=== PATIENT | female | born 1970 | race Caucasian/White ===

== ENCOUNTER 2016-04-08 21:45 | Inpatient (IN) | payer MEDICARE, MEDICAID ==
[~2016-04-08] VITALS: Ht 180.3 cm; Wt 179.6 kg
[~2016-04-08 21:45] MED LIST: ACID1TAB4 PO; ALPH300T PO; ALPR-557 PO; ASCO500T20 PO; ASPI-241 PO; BORAGE OIL PO; BUTA-234 PO; CALC-6 PO; CALC-787 PO; CALC750C PO; CEFD300C PO; CLON0.1T14 PO; CLOP75TA28 PO; CYAN50003 PO; CYCL10TA45 PO; DIPH1TAB25 PO; DIPH25TA82 PO; DOXY100C42 PO; DULO30CA PO; ENXP40I.4 SC; FEXO180T84 PO; FLONASE; FRS325T PO; FURO40TA PO; FURO40TA4 PO; GBPN300C PO; GLUC1VIA IM; GLYB2.5T4 PO; HYDR-2889 PO; HYDR50CA PO; INSASP10V SC; INSU100V5 SQ; INSU100V6 SQ; LEVO175T3 PO; LISI10TA PO; METR500T PO; MMT17NA NS; MONT10TA24 PO; MTF500T PO; NAPR-243 PO; NST15PW TOP; Nystatin TP; OMG1KC PO; OXYC-197 PO; OXYC1TAB12 PO; PERM60CR17 TP; PIOG45TA PO; PROP15DR OU; Polyethylene Glycol PO; ROCEPHIN IV; SIMV40TA4 PO; TRAM-21 PO; TRZ50T PO; ZINC50TA49 PO; [UNRECOGNIZED DRUG - OTHER]; [UNRECOGNIZED DRUG - OTHER] PO; [UNRECOGNIZED DRUG - OTHER] PO; [UNRECOGNIZED DRUG - OTHER] PO
[2016-04-08] MEDS ORDERED: ACETAMINOPHEN 500 MG TAB (TYLENOL) PO PRN (22:15)
[2016-04-08] MEDS ORDERED: ONDANSETRON 4 MG/2 ML (SDV) Z0FRAN IVP PRN (22:15)
[2016-04-08] MEDS ORDERED: VANCOMYCIN IV ADD-VANTAGE 1,000 MG in SODIUM CHLORIDE (ADD-VANTAGE) 250 ML IV ONE (22:15)
--- NOTE | 2016-04-08 22:17 | ED General ---
General Chief Complaint: Fever-Adult/Adol Stated Complaint: CELLULITIS Nursing Triage Note: Per EMS, patient transport with Fire assist, 6 man lift to cart. Pt has cellulitis in right leg up to hip and groin; temps up to 103.5. Nursing Sepsis Screen: Possible Severe Sepsis Risk Source of Information: Patient, Family, Fpc Records Exam Limitations: No Limitations History of Present Illness Time Seen by Provider: 22:06 Initial Comments 45-year-old female patient presents to the emergency department with complaints of possible sepsis. Patient is tenderness this examiner from residential rounds as an outpatient. Patient has been treated as an outpatient by Uriah Jacob APRN with doxycycline and Bactrim. Patient has had worsening symptoms of the right lower extremity today. Right lower extremity cellulitis now with erythema up to the level of the right hip and a fever of 103.5 degrees F. Patient was noted by nursing staff to have an oxygen of 68 percent on room air. Patient does not wear oxygen at home, but does use a BiPap at nighttime. Sister reports patient has had increased muscle spasms while sleeping. Labs obtained as an outpatient showed a Na+ 125, Creat 2.4, WBC 14. Timing/Duration: 1 Week, Getting Worse Modifying Factors: worse with Medication (no improvement with Bactrim or doxy.) Allergies and Home Medications Allergies Coded Allergies: meperidine HCl (Verified Allergy, Severe, seizure, 02/14/16) fluticasone propionate (Verified Allergy, Intermediate, HIVES, 02/14/16) salmeterol xinafoate (Verified Allergy, Intermediate, HIVES, 02/14/16) ibuprofen (Unverified Allergy, Unknown, 02/14/16) levofloxacin (Verified Adverse Reaction, Unknown, 02/14/16) Home Medications 180 MG PO Q12H PRN PRN CONGESTION (Reported) ACTIVE INGREDIENT FEXOFENADINE 180MG Albuterol Sulfate 2.5 Mg/3 Ml Vial.neb 2.5 MG NEB Q2H PRN PRN SHORTNESS OF BREATH (Reported) Alprazolam 0.25 Mg Tablet 0.25 MG PO Q6H PRN PRN ANXIETY (Reported) Amlodipine Besylate 5 Mg Tablet 5 MG PO DAILY (Reported) Ascorbic Acid 500 Mg Tablet 500 MG PO DAILY (Reported) Aspirin 325 Mg Tablet.dr 325 MG PO DAILY (Reported) Atorvastatin Calcium 20 Mg Tablet 20 MG PO DAILY (Reported) Bupropion HCl 150 Mg Tab.er.24h 300 MG PO DAILY (Reported) TAKES 2 (150MG) TABLETS Calcium Carbonate/Vitamin D3 1 Each Tablet 1 TAB PO BID (Reported) Clopidogrel Bisulfate 75 Mg Tablet 75 MG PO DAILY (Reported) Cranberry Conc/C/Bacill Coag 1 Each Tablet 1 TAB PO TID (Reported) Cyclobenzaprine Hcl 10 Mg Tablet 10 MG PO TID (Reported) Dextrose 37.5 Gm Gel..gram. 15 GM PO UD PRN PRN HYPOGLYCEMIA (Reported) GIVE ONE PACKET FOR HYPOGLYCEMIA AND TAKE BS IN 15 MIN, IF NOT RISING GIVE ANOTHER PACKET AND RE-TAKE BS IN 15 MIN, IF NO CHANGE IN BS OR LOC GIVE IM GLUCAGON AND NOTIFY MD Docusate Sodium 100 Mg Capsule 100 MG PO Q12H PRN PRN CONSTIPATION (Reported) Doxycycline Hyclate 100 Mg Capsule 10Days 100 MG PO BID (Reported) 10 DAY THERAPY START DATE 04-08-16 Fexofenadine Hcl 180 Mg Tablet 180 MG PO DAILY (Reported) Fluticasone Propionate 16 Gm Allgood.susp 1 SPRAY NS DAILY (Reported) Furosemide 80 Mg Tablet 80 MG PO DAILY PRN PRN EDEMA (Reported) MAY GIVE PRN DAILY IN ADDITION TO SCHEDULED DOSE Furosemide 80 Mg Tablet 80 MG PO DAILY (Reported) Gabapentin 600 Mg Tablet 600 MG PO TID (Reported) Glucagon,Human Recombinant 1 Mg/1 Ml Vial 1 MG IM UD PRN PRN HYPOGLYCEMIA ( Reported) Guaifenesin/Dextromethorphan 5 Ml Syrup 10 ML PO Q4H PRN PRN COUGH (Reported) Insulin Aspart 300 Units/3 Ml Solution SC AC (Reported) 151-200 = 6 UNITS 201-250 = 8 UNITS 251-300 = 10 UNITS 301-350 = 12 UNITS 351 -400 = 14 UNITS CALL MD FOR SUGAR UNDER 60 AND OVER 400 Insulin Detemir 100 Unit/1 Ml Insuln.pen 19 UNITS SC HS (Reported) Lactobacillus Acidophilus 1 Each Tablet 2 TAB PO QID (Reported) Levalbuterol Tartrate 15 Gm Hfa.aer.ad 2 PUFF IH BID (Reported) Levothyroxine Sodium 125 Mcg Tablet 250 MCG PO DAILY (Reported) TAKES 2 (125MCG) TABLETS Linagliptin 5 Mg Tablet 5 MG PO DAILY (Reported) Metformin HCl 1,000 Mg Tablet 1,000 MG PO BID (Reported) Montelukast Sodium 10 Mg Tablet 10 MG PO HS (Reported) Multivitamin with Minerals 1 Each Tablet 1 TAB PO DAILY (Reported) Nystatin 15 Gm Cream..g. TP PRN PRN PRN GAULDING (Reported) APPLY TO SKIN FOLDS [place] 3 Polyunsat Fatty Acids 1,000 Mg Cap 1,000 MG PO TID (Reported) Oxycodone HCl 30 Mg Tab.er.12h 30 MG PO BID (Reported) Oxycodone HCl/Acetaminophen 1 Each Tablet 1-2 TAB PO EVERY 4-6 HOURS (Reported ) Zinc Oxide 113 Gm Cream..g. TP BID (Reported) APPLY TO LEFT BUTTOCK, LEFT AND RIGHT THIGHS WHERE OPEN AREAS ARE LOCATED Constitutional: see HPI chills fever malaise EENTM: no symptoms reported Respiratory: coughNo phlegm, short of breath wheezing Cardiovascular: no symptoms reported Gastrointestinal: No abdominal pain, No constipation, No diarrhea, heartburn loss of appetite nausea (with antibiotics)No vomiting Genitourinary: no symptoms reported Musculoskeletal: see HPI joint pain (RLE) joint swelling (RLE) other (muscle spasms while sleeping.) Skin: see HPI change in color (erythema RLE) other (ecchymosis left 2nd finger.) Psychiatric/Neurological: See HPI Headache Pre-Existing Deficit (paralysis of the RU and RLE from previous CVA.)Denies Seizure All Other Systems Reviewed Negative Unless Noted: Yes (Negative excepted noted.) Past Lwgcdai-Rrxtzh-Qtufio Hx Patient Social History Recent Foreign Travel: No Contact w/Someone Who Travel: No Recent Infectious Disease Expo: No Recent Hopitalizations: Yes Immunizations Up To Date Date of Pneumonia Vaccine: Nov 15, 2009 Date of Influenza Vaccine: Oct 17, 2015 Surgeries HX Surgeries: Yes (fractured ankle 09/18/13) Surgeries: Orthopedic Respiratory Hx Respiratory Disorders: Yes Respiratory Disorders: Sleep Apnea, COPD Cardiovascular Hx Cardiac Disorders: Yes Cardiac Disorders: Hypertension Neurological Hx Neurological Disorders: Yes (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 ) Endocrine Disorders: Diabetes, Insulin dep Cancer Hx Cancer: No Psychosocial Hx Psychiatric Problems: Yes Behavioral Health Disorders: Depression Integumentary HX Skin/Integumentary Disorder: Yes (MULTIPLE AREAS OF SKIN BREAKDOWN) Reviewed Nursing Assessment Reviewed/Agree w Nursing PMH: Yes Family Medical History Significant Family History: No Pertinent Family Hx Family Medial History: Patient reports no known family medical history. Physical Exam-Suspected Sepsis Physical Exam Vital Signs Vital Sign - Last 12Hours 04/08/16 04/08/16 21:45 22:37 Temp 100.4 Pulse 100 Resp 18 B/P 127/63 Pulse Ox 100 O2 Delivery Nasal Cannula O2 Flow Rate 4 Capillary Refill : Less Than 3 Seconds Blood Pressure Mean: 84 General Appearance: WD/WN Chronically ill Moderate Distress Obese HEENT: PERRL/EOMI TMs Normal Normal ENT Inspection Pharynx Normal Neck: Normal Inspection Supple Respiratory: Decreased Breath Sounds Expiration Respiratory Distress Rhonci Cardiovascular: No Murmur Tachycardia Gastrointestinal: Normal Bowel Sounds Non Tender SoftNo Distended Extremity: Inflammation Pedal Edema Swelling Other (erythema, warmth, swelling , and tenderness of the RLE extending from the base of the toes to the Rt hip. erythema of the left ankle/distal lower leg. ecchymosis left 2nd finger.) Neurologic/Psychiatric: Alert Oriented x3 Depressed Affect Skin: warm/dry other (erythema, warmth, swelling, and tenderness of the RLE extending from the base of the toes to the Rt hip. erythema of the left ankle/ distal lower leg. ecchymosis left 2nd finger.) Progress/Results/Core Measures Suspected Sepsis Recent Fever Within 48 Hours: Yes Infection Criteria Present: Suspected New Infection New/Unexplained Altered Menta: Yes Sepsis Screen: Possible Severe Sepsis Risk Sepsis Diagnosis: SIRS Temperature:100.4 Pulse: 100 Respiratory Rate: 18 Laboratory Tests 04/08/16 21:58: White Blood Count 17.7H 04/09/16 04:20: White Blood Count 14.3H 04/10/16 05:50: White Blood Count 10.5 Blood Pressure 127 /63 Mean: 84 Laboratory Tests 04/08/16 21:58: Creatinine 2.18H, INR Comment 1.1, Platelet Count 195, Total Bilirubin 0.3 04/09/16 04:20: Creatinine 2.06H, Platelet Count 167, Total Bilirubin 0.3 04/10/16 05:50: Creatinine 1.51H, Platelet Count 164, Total Bilirubin 0.3 Results/Orders Lab Results Laboratory Tests Test 04/08/16 21:45 04/08/16 21:58 04/08/16 23:45 04/09/16 04:20 Range/Units B-Type Natriuretic Peptide 144.0 H <100.0 PG/ML Activated Partial Thromboplast Time 83 H 24-35 SEC Alanine Aminotransferase (ALT/SGPT) 23 21 0-55 U/L Albumin 2.9 L 2.6 L 3.2-4.5 G/DL Alkaline Phosphatase 81 74 40-136 U/L Anion Gap 14 11 5-14 MMOL/L Aspartate Amino Transf (AST/SGOT) 29 26 5-34 U/L BUN/Creatinine Ratio 37 39 Band Neutrophils 2 % Basophils # (Auto) 0.0 0.0 0.0-0.1 10^3/uL Basophils % (Manual) 0 % Basophils (%) (Auto) 0 0 0-10 % Blood Urea Nitrogen 81 H 80 H 7-18 MG/DL Calcium Level 8.6 8.0 L 8.5-10.1 MG/DL Carbon Dioxide Level 23 25 21-32 MMOL/L Chloride Level 92 L 96 L 98-107 MMOL/L Creatinine 2.18 H 2.06 H 0.60-1.30 MG/DL Eosinophils # (Auto) 0.0 0.0 0.0-0.3 10^3/uL Eosinophils % (Manual) 1 % Eosinophils (%) (Auto) 0 0 0-10 % Estimat Glomerular Filtration Rate 25 26 Glucose Level 195 H 155 H 70-105 MG/DL Hematocrit 32 L 29 L 35-52 % Hemoglobin 10.7 L 9.7 L 11.5-16.0 G/DL Hypochromasia SLIGHT INR Comment 1.1 0.8-1.4 Lactic Acid Level 1.1 0.7 0.5-2.0 MMOL/L Lymphocytes # (Auto) 0.6 L 0.8 L 1.0-4.0 X 10^3 Lymphocytes % (Manual) 8 % Lymphocytes (%) (Auto) 4 L 5 L 12-44 % Mean Corpuscular Hemoglobin 28 28 25-34 PG Mean Corpuscular Hemoglobin Concent 34 33 32-36 G/DL Mean Corpuscular Volume 84 84 80-99 FL Mean Platelet Volume 10.1 9.4 7.4-10.4 FL Monocytes # (Auto) 0.5 0.7 0.0-1.0 X 10^3 Monocytes % (Manual) 2 % Monocytes (%) (Auto) 3 5 0-12 % Neutrophils # (Auto) 16.6 H 12.9 H 1.8-7.8 X 10^3 Neutrophils % (Manual) 87 % Neutrophils (%) (Auto) 93 H 90 H 42-75 % Platelet Count 195 167 130-400 10^3/uL Potassium Level 4.0 3.8 3.6-5.0 MMOL/L Prothrombin Time 13.7 12.2-14.7 SEC Red Blood Count 3.79 L 3.45 L 4.35-5.85 10^6/uL Red Cell Distribution Width 15.9 H 15.9 H 10.0-14.5 % Sodium Level 129 L 132 L 135-145 MMOL/L Total Bilirubin 0.3 0.3 0.1-1.0 MG/DL Total Protein 6.5 5.8 L 6.4-8.2 G/DL Troponin I < 0.30 <0.30 NG/ML White Blood Count 17.7 H 14.3 H 4.3-11.0 10^3/uL Lab Scanned Report LAB Reports [id number] Magnesium Level 1.7 L 1.8-2.4 MG/DL Phosphorus Level 4.0 2.3-4.7 MG/DL Test 04/09/16 12:47 04/09/16 16:53 04/09/16 17:50 04/09/16 20:40 Range/Units Glucometer 264 H 341 H 285 H 70-110 MG/DL Urine Bacteria TRACE /HPF Urine Bilirubin NEGATIVE NEGATIVE Urine Casts PRESENT /LPF Urine Clarity CLEAR Urine Color YELLOW Urine Crystals NONE /LPF Urine Culture Indicated NO Urine Glucose (UA) NEGATIVE NEGATIVE Urine Hyaline Casts 0-2 H /LPF Urine Ketones NEGATIVE NEGATIVE Urine Leukocyte Esterase NEGATIVE NEGATIVE Urine Mucus NEGATIVE /LPF Urine Nitrite NEGATIVE NEGATIVE Urine Protein NEGATIVE NEGATIVE Urine RBC RARE /HPF Urine RBC (Auto) 4+ H NEGATIVE Urine Specific [place] 1.010 L 1.016-1.022 Urine Squamous Epithelial Cells RARE /HPF Urine Urobilinogen NORMAL NORMAL MG/DL Urine WBC 0-2 /HPF Urine pH 5 5-9 Test 04/10/16 05:45 04/10/16 05:50 04/10/16 11:19 04/10/16 16:13 Range/Units Glucometer 155 H 205 H 249 H 70-110 MG/DL Alanine Aminotransferase (ALT/SGPT) 25 0-55 U/L Albumin 2.6 L 3.2-4.5 G/DL Alkaline Phosphatase 91 40-136 U/L Anion Gap 11 5-14 MMOL/L Aspartate Amino Transf (AST/SGOT) 26 5-34 U/L BUN/Creatinine Ratio 43 Basophils # (Auto) 0.0 0.0-0.1 10^3/uL Basophils (%) (Auto) 0 0-10 % Blood Urea Nitrogen 65 H 7-18 MG/DL Calcium Level 7.6 L 8.5-10.1 MG/DL Carbon Dioxide Level 24 21-32 MMOL/L Chloride Level 98 98-107 MMOL/L Creatinine 1.51 H 0.60-1.30 MG/DL Eosinophils # (Auto) 0.1 0.0-0.3 10^3/uL Eosinophils (%) (Auto) 1 0-10 % Estimat Glomerular Filtration Rate 38 Glucose Level 148 H 70-105 MG/DL Hematocrit 29 L 35-52 % Hemoglobin 9.8 L 11.5-16.0 G/DL Lymphocytes # (Auto) 0.7 L 1.0-4.0 X 10^3 Lymphocytes (%) (Auto) 6 L 12-44 % Magnesium Level 1.7 L 1.8-2.4 MG/DL Mean Corpuscular Hemoglobin 28 25-34 PG Mean Corpuscular Hemoglobin Concent 33 32-36 G/DL Mean Corpuscular Volume 84 80-99 FL Mean Platelet Volume 9.4 7.4-10.4 FL Monocytes # (Auto) 0.9 0.0-1.0 X 10^3 Monocytes (%) (Auto) 9 0-12 % Neutrophils # (Auto) 8.8 H 1.8-7.8 X 10^3 Neutrophils (%) (Auto) 84 H 42-75 % Phosphorus Level 3.7 2.3-4.7 MG/DL Platelet Count 164 130-400 10^3/uL Potassium Level 3.6 3.6-5.0 MMOL/L Red Blood Count 3.50 L 4.35-5.85 10^6/uL Red Cell Distribution Width 16.0 H 10.0-14.5 % Sodium Level 133 L 135-145 MMOL/L Total Bilirubin 0.3 0.1-1.0 MG/DL Total Protein 6.1 L 6.4-8.2 G/DL Vancomycin Level Trough 29.0 *H 10.0-20.0 UG/ML White Blood Count 10.5 4.3-11.0 10^3/uL Test 04/10/16 17:52 04/10/16 21:07 Range/Units Vancomycin Level Trough 20.7 H 10.0-20.0 UG/ML Glucometer 280 H 70-110 MG/DL Micro Results Microbiology 04/09/16 Blood Culture - Preliminary, Resulted 04/08/16 Blood Culture - Preliminary, Resulted No growth 04/08/16 Blood Culture - Preliminary, Resulted No growth 04/09/16 MRSA Screen - Final, Complete 04/08/16 Influenza Types A,B Antigen ([facility]) - Final, Complete My Orders Orders-PRITESH CARBAJAL Cbc With Automated Diff (04/08/16 22:15) Comprehensive Metabolic Panel (04/08/16 22:15) Lactic Acid Analyzer (04/08/16 22:15) Blood Culture (04/08/16 22:15) Sputum Culture (04/08/16 22:15) Ua Culture If Indicated (04/08/16 22:15) Protime With Inr (04/08/16 22:15) Partial Thromboplastin Time (04/08/16 22:15) Chest 1 View, Ap/Pa Only (04/08/16 22:15) O2 (04/08/16 22:15) Ondansetron Injection (Zofran Injectio (04/08/16 22:15) Acetaminophen Tablet (Tylenol Tablet) (04/08/16 22:15) Saline Lock/Iv-Start (04/08/16 22:15) Saline Lock/Iv-Start (04/08/16 22:15) Ekg Tracing (04/08/16 22:15) Troponin I (04/08/16 22:15) Vital Signs Adult Sepsis Patie Q1HR (04/08/16 22:15) Vancomycin Iv Add-Disputanta (Vancomycin Iv (04/08/16 22:15) Remove Rings In Anticipation O (04/08/16 22:15) Influenza A And B Antigens (04/08/16 22:15) Manual Differential (04/08/16 21:58) BNP (04/08/16 22:26) O2 (04/08/16 22:28) Monitor-Rhythm Ecg Trace Only (04/08/16 22:28) Albuterol Pre-Mix Nebs (Rt) (Proventil P (04/08/16 22:28) Svn Sm Volume Nebulizer Rt-Rfs (04/08/16 22:28) Albuterol Pre-Mix Nebs (Rt) (Proventil P (04/08/16 22:32) Albuterol Pre-Mix Nebs (Rt) (Proventil P (04/08/16 22:42) Ns Iv 1000 Ml (Sodium Chloride 0.9%) (04/08/16 23:35) Vital Signs/I&O Vital Sign - Last 12Hours 04/10/16 04/10/16 04/10/16 04/10/16 10:31 12:00 13:25 16:00 Temp 98.2 97.8 Pulse 80 80 Resp 18 16 B/P 112/68 133/63 Pulse Ox 94 95 94 94 O2 Delivery Nasal Cannula Nasal Cannula O2 Flow Rate 1.00 1.00 1.00 1.00 04/10/16 19:42 Pulse Ox 96 O2 Flow Rate 1.00 Capillary Refill : Less Than 3 Seconds Blood Pressure Mean: 84 ECG Initial ECG Impression Date: Apr 08, 2016 Initial ECG Impression Time: 22:29 Initial ECG Rate: 94 Initial ECG Rhythm: Normal Sinus Initial ECG Comparisson: Unchanged Comment Sinus rhythm. No STEMI or arrhythmia noted. ECG was reviewed and discussed with Dr. Andrew Nassar. Diagnostic Imaging Diagonstic Imaging: Xray Plain Films/CT/US/NM/MRI: chest Comments bilateral infiltrates/pulmonary venous congestion. poor inspiratory effort. Reviewed: Reviewed/Discussed (with Dr. Andrew Nassar) Departure Communication Time/Spoke to Admitting Phy: 23:[address] Flores accepts patient to her internal medicine service for IV antibiotics, IV fluids, surgical consult, and further evaluation. Progress Notes All laboratory and diagnostic findings discussed with the patient and sister. Patient shows improved breath sounds bilaterally following nebulizer treatment. Patient is alert and oriented 3, no acute distress. Discussed plan for admission with the patient and sister. Both voice understanding and agree with treatment plan. General surgery to be notified in the a.m. Patient case discussed with Dr. Andrew Nassar, he agrees with the plan of care. Impression Impression: Primary Impression: Sepsis Qualified Code: A41.9 - Sepsis, unspecified organism Additional Impressions: Cellulitis of right lower extremity Pneumonia Qualified Code: J18.9 - Pneumonia, unspecified organism Hypokalemia Acute renal failure Qualified Code: N17.9 - Acute kidney failure, unspecified Diabetes mellitus Qualified Code: E11.8 - Type 2 diabetes mellitus with unspecified complications Left hand pain Disposition: ADMITTED INPATIENT Condition: Stable Decision to Admit Reason: Admit from ER (General) Decision to Admit/Date: Apr 08, 2016 Time/Decision to Admit Time: 23:45 Departure-Patient Inst. Referrals: GISELLE NASSAR MD (PCP/Family) Primary Care Physician PRITESH CARBAJAL Apr 08, 2016 22:17 GISELLE NASSAR MD (PCP/Family) Primary Care Physician PRITESH CARBAJAL Apr 08, 2016 22:17 PRITESH CARBAJAL Apr 08, 2016 22:17
[2016-04-08 22:23] LABS: BASOPHILS % (AUTO) 0 % (0-10); EOSINOPHILS % (AUTO) 0 % (0-10); LYMPHOCYTES # (AUTO) 0.6 X 10^3 (1.0-4.0); LYMPHOCYTES % (AUTO) 4 % (12-44); MEAN CORPUSCULAR HEMOGLOBIN 28 PG (25-34); MEAN CORPUSCULAR HGB CONC 34 G/DL (32-36); MEAN CORPUSCULAR VOLUME 84 FL (80-99); MEAN PLATELET VOLUME 10.1 FL (7.4-10.4); MONOCYTES # (AUTO) 0.5 X 10^3 (0.0-1.0); MONOCYTES % (AUTO) 3 % (0-12); NEUTROPHILS # (AUTO) 16.6 X 10^3 (1.8-7.8); NEUTROPHILS % (AUTO) 93 % (42-75); PLATELET COUNT 195 10^3/uL (130-400); RED BLOOD COUNT 3.79 10^6/uL (4.35-5.85); RED CELL DISTRIBUTION WIDTH 15.9 % (10.0-14.5); WHITE BLOOD COUNT 17.7 10^3/uL (4.3-11.0)
[2016-04-08 22:24] LABS: INR 1.1 (0.8-1.4); PROTHROMBIN TIME PATIENT 13.7 SEC (12.2-14.7)
[2016-04-08] MEDS ORDERED: RT-ALBUTEROL SULF 2.5 MG/3 ML PRE-MIX VIAL INH STA (22:28)
[2016-04-08] MEDS ORDERED: RT-ALBUTEROL SULF 2.5 MG/3 ML PRE-MIX VIAL ONE ×2 (22:32→22:42)
[2016-04-08] MEDS ORDERED: NS IV 1000 ML 1,000 ML ONE (23:35)
[2016-04-09 00:16] LABS: ALANINE AMINOTRANSFERASE 23 U/L (0-55); ANION GAP 14 MMOL/L (5-14); ASPARTATE AMINO TRANSFERASE 29 U/L (5-34); BILIRUBIN,TOTAL 0.3 MG/DL (0.1-1.0); BLOOD UREA NITROGEN 81 MG/DL (7-18); BUN/CREATININE RATIO 37; CALCIUM 8.6 MG/DL (8.5-10.1); CARBON DIOXIDE 23 MMOL/L (21-32); CHLORIDE 92 MMOL/L (98-107); CREATININE SERUM 2.18 MG/DL (0.60-1.30); GFR ESTIMATED 25; GLUCOSE 195 MG/DL (70-105); SODIUM 129 MMOL/L (135-145)
[2016-04-09 00:17] LABS: ALBUMIN 2.9 G/DL (3.2-4.5); TOTAL PROTEIN 6.5 G/DL (6.4-8.2); TROPONIN I < 0.30 NG/ML (<0.30)
[2016-04-09 00:21] LABS: BAND NEUTROPHILS 2 %; BASOPHILS % (MANUAL) 0 %; EOSINOPHILS % (MANUAL) 1 %; HYPOCHROMASIA SLIGHT; LYMPHOCYTES % (MANUAL) 8 %; NEUTROPHILS % (MANUAL) 87 %
[2016-04-09] MEDS ORDERED: CEFEPIME HCL 2 GM (MAXIPIME) VIAL ONE (01:13)
[2016-04-09] MEDS ORDERED: NS (IVPB) 50 ML ONE (01:14)
[2016-04-09 01:30] LABS: BILIRUBIN,URINE NEGATIVE (NEGATIVE); KETONES,URINE NEGATIVE (NEGATIVE); LEUKOCYTE ESTERASE ,URINE NEGATIVE (NEGATIVE); NITRITE,URINE NEGATIVE (NEGATIVE); PH,URINE 5 (5-9); PROTEIN,URINE 1+ (NEGATIVE); UROBILINOGEN,URINE NORMAL (NORMAL)
[2016-04-09] MEDS ORDERED: VANCOMYCIN 1 GM/NS 250 ML IVPB IV SCH ×2 (01:30)
[2016-04-09] MEDS ORDERED: PIPERACILLIN/TAZO 4.5 GM VIAL (ZOSYN) IV ONE (01:49)
[2016-04-09] MEDS ORDERED: NS (IVPB) 100 ML ONE (01:49)
[2016-04-09] MEDS ORDERED: NS W/KCL 20 MEQ/L 1,000 ML IV ONE (01:55)
[2016-04-09 02:00] VITALS: BP 100/55
[2016-04-09] MEDS ORDERED: RT-ALBUTEROL SULF 2.5 MG/3 ML PRE-MIX VIAL INH PRN (02:15)
[2016-04-09] MEDS ORDERED: fentaNYL INJECTION 100 MCG/2 ML AMP IVP PRN (02:30)
[2016-04-09] MEDS ORDERED: ONDANSETRON 4 MG/2 ML (SDV) Z0FRAN IVP PRN (02:30)
[2016-04-09] MEDS ORDERED: LORazepam INJ 2 MG/ML (ATIVAN) VIAL IVP PRN (02:30)
[2016-04-09] MEDS ORDERED: ACETAMINOPHEN 325 MG TABLET/CAPLET (TYLENOL) PO PRN (02:30)
[2016-04-09 03:00] VITALS: BP 108/63
[2016-04-09 04:00] VITALS: BP 127/77
[2016-04-09] MEDS: NS W/KCL 20 MEQ/L 1,000 ML IV SCH ×3 (04:00→18:05)
[2016-04-09 04:36] LABS: BASOPHILS % (AUTO) 0 % (0-10); EOSINOPHILS % (AUTO) 0 % (0-10); LYMPHOCYTES # (AUTO) 0.8 X 10^3 (1.0-4.0); LYMPHOCYTES % (AUTO) 5 % (12-44); MEAN CORPUSCULAR HEMOGLOBIN 28 PG (25-34); MEAN CORPUSCULAR HGB CONC 33 G/DL (32-36); MEAN CORPUSCULAR VOLUME 84 FL (80-99); MEAN PLATELET VOLUME 9.4 FL (7.4-10.4); MONOCYTES # (AUTO) 0.7 X 10^3 (0.0-1.0); MONOCYTES % (AUTO) 5 % (0-12); NEUTROPHILS # (AUTO) 12.9 X 10^3 (1.8-7.8); NEUTROPHILS % (AUTO) 90 % (42-75); PLATELET COUNT 167 10^3/uL (130-400); RED BLOOD COUNT 3.45 10^6/uL (4.35-5.85); RED CELL DISTRIBUTION WIDTH 15.9 % (10.0-14.5); WHITE BLOOD COUNT 14.3 10^3/uL (4.3-11.0)
[2016-04-09 04:49] LABS: ALBUMIN 2.6 G/DL (3.2-4.5); BILIRUBIN,TOTAL 0.3 MG/DL (0.1-1.0); CREATININE SERUM 2.06 MG/DL (0.60-1.30); MAGNESIUM 1.7 MG/DL (1.8-2.4); POTASSIUM 3.8 MMOL/L (3.6-5.0); TOTAL PROTEIN 5.8 G/DL (6.4-8.2)
[2016-04-09 05:00] VITALS: BP 115/65
[2016-04-09 06:00] VITALS: BP 112/62
[2016-04-09] MEDS ORDERED: KCL 20 MEQ TAB (K-DUR) PO SCH (06:00)
[2016-04-09] MEDS ORDERED: POTASSIUM CL 10MEQ/50ML IVPB 50 ML IV SCH (06:00)
[2016-04-09] MEDS ORDERED: MAGNESIUM 1 GM/100 ML IVPB 100 ML IV SCH (06:00)
--- NOTE | 2016-04-09 06:23 | Pulmonary Consultation ---
History of Present Illness History of Present Illness Date of Consultation 04/09/16 06:17 Date of Admission History of Present Illness 45yo with hx of morbid obesity and, CVA (right side hemiparesis) CHF presented secondary to fever, and SOB found to have pneumonia with sepsis. She has RLE cellulitis. Pt was found to have Sp03 of 68%. She does not have oxygen at home however does have BiPAP for GUERITA. I am consulted for pulmonary management. Allergies and Home Medications Allergies Coded Allergies: meperidine HCl (Verified Allergy, Severe, seizure, 02/14/16) fluticasone propionate (Verified Allergy, Intermediate, HIVES, 02/14/16) salmeterol xinafoate (Verified Allergy, Intermediate, HIVES, 02/14/16) ibuprofen (Unverified Allergy, Unknown, 02/14/16) levofloxacin (Verified Adverse Reaction, Unknown, 02/14/16) Home Medications (Reported) 50 MCG (Reported) 30 GM CREAM.GM. #1 0 GM TP TID Prescribed by: SHARLENE CHILD on 09/21/13 1245 17 GM PACK 34 GM PO reshma Prescribed by: SHARLENE CHILD on 09/21/13 1245 7Days 1 GM IV DAILY Prescribed by: MAIK WILEY on 01/03/152040 Ascorbic Acid 500 Mg Tablet 500 MG PO DAILY (Reported) Aspirin 325 Mg Tablet.dr 325 MG PO DAILY (Reported) Calcium Carbonate/Vitamin D3 1 Each Tablet 1 EACH PO BID (Reported) Calcium Pyruvate 750 Mg Capsule 2 TAB PO DAILY (Reported) Clonidine HCl 0.1 Mg Tablet 0.1 MG PO TID (Reported) Clopidogrel Bisulfate 75 Mg Tablet 75 MG PO DAILY (Reported) Cyclobenzaprine Hcl 10 Mg Tablet 10 MG PO TID PRN PRN MUSCLE SPASMS (Reported) Doxycycline Monohydrate 100 Mg Capsule #20 100 MG PO BID Prescribed by: MAIK WILEY on 01/03/152040 Duloxetine Hcl 30 Mg Capsule.dr 30 EACH PO DAILY (Reported) Enoxaparin 40 Mg/0.4 Ml Soln 14Days 40 MG SC DAILY@10 Prescribed by: SHARLENE CHILD on 09/21/13 1245 Fexofenadine Hcl 180 Mg Tablet 180 MG PO DAILY (Reported) Furosemide 40 Mg Tablet 40 MG PO BID (Reported) Gabapentin 300 Mg Cap 600 MG PO TID (Reported) Glucagon,Human Recombinant 1 Mg/1 Ml Vial 1 MG IM UD PRN PRN HYPOGLYCEMIA ( Reported) Insulin Aspart 10 Unit/0.1 Ml Susp 0 SC UD (Reported) SS UD Insulin Detemir 1 Unit/0.01 Ml Soln #1 8 UNIT SQ HS Prescribed by: SHARLENE CHILD on 09/21/13 1245 L. Acidophilus/Lactobac Spor 1 Each Tablet #100 2 EACH PO QID Prescribed by: MAIK WILEY on 01/03/152040 Levothyroxine Sodium 175 Mcg Tablet 200 MCG PO DAILY (Reported) Montelukast Sodium 10 Mg Tablet 10 MG PO HS (Reported) Nystatin 15 Gm Powd #1 0 GM TOP TID Prescribed by: SHARLENE CHILD on 09/21/13 124 [place] 3 Polyunsat Fatty Acids 1,000 Mg Cap 1,000 MG PO TID (Reported) Oxycodone HCl/Acetaminophen 1 Each Tablet #10 1 EACH PO Q6H PRN PRN PAIN Prescribed by: SHAWN KINGSTON on 11/04/15 0452 Oxycodone Hcl/Acetaminophen 1 Tab Tablet #60 1 TAB PO Q6H PRN PRN PAIN NOT CONTROLLED W/TRAMADOL Prescribed by: SHARLENE CHILD on 09/21/13 1245 Permethrin 60 Gm Cream..g. #2 60 GM TP UD REPEAT IN 1 WEEK Prescribed by: MAIK WILEY on 01/03/152044 Pioglitazone Hcl 45 Mg Tablet 45 MG PO DAILY (Reported) Simvastatin 40 Mg Tablet 40 MG PO HS (Reported) Tramadol Hcl 50 Mg Tablet 5 MG PO Q4H PRN PRN PAIN (Reported) Zinc Amino Acid Chelate 50 Mg Tablet 50 MG PO HS (Reported) Past Cxbtikg-Zfimyx-Vpvzms Hx Patient Social History Alcohol Use: Denies Use Recreational Drug Use: No Smoking Status: Former Smoker Type Used: Cigarettes 2nd Hand Smoke Exposure: No Recent Foreign Travel: No Contact w/Someone Who Travel: No Recent Infectious Disease Expo: No Recent Hopitalizations: Yes Physical Abuse Screen: No Sexual Abuse: No Immunizations Up To Date Date of Pneumonia Vaccine: Nov 15, 2009 Date of Influenza Vaccine: Oct 17, 2015 Seasonal Allergies Seasonal Allergies: No Surgeries HX Surgeries: Yes (fractured ankle 09/18/13) Surgeries: Orthopedic Respiratory Hx Respiratory Disorders: Yes Respiratory Disorders: Sleep Apnea, COPD Cardiovascular Hx Cardiac Disorders: Yes Cardiac Disorders: Hypertension Neurological Hx Neurological Disorders: Yes (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 ) Endocrine Disorders: Diabetes, Insulin dep Cancer Hx Cancer: No Psychosocial Hx Psychiatric Problems: Yes Behavioral Health Disorders: Depression Integumentary HX Skin/Integumentary Disorder: Yes (MULTIPLE AREAS OF SKIN BREAKDOWN) Reviewed Nursing Assessment Reviewed/Agree w Nursing PMH: Yes Family Medical History Significant Family History: No Pertinent Family Hx Family Medial History: Patient reports no known family medical history. Review of Systems Constitutional: : Fever: Malaise: Sweats: Weakness Respiratory: : SOB with excertion: Shortness of breath: Wheezing Neurological: : Weakness Exam Exam Vital Signs Date Time Temp Pulse Resp B/P Pulse Ox O2 Delivery O2 Flow Rate FiO2 04/09/16 06:00 70 9 112/62 90 Nasal Cannula 4.00 04/09/16 05:00 75 8 115/65 100 Nasal Cannula 4.00 04/09/16 04:06 97.4 04/09/16 04:00 98 4.00 04/09/16 04:00 68 9 127/77 97 Nasal Cannula 4.00 04/09/16 03:00 71 8 108/63 97 Nasal Cannula 4.00 04/09/16 02:11 98 4.00 04/09/16 02:00 79 9 100/55 94 Nasal Cannula 4.00 04/09/16 01:27 99 04/09/16 01:27 99 6.00 04/09/16 01:00 80 04/09/16 00:45 100.4 84 15 98 4 04/08/16 22:43 100 4 04/08/16 22:37 100 4 04/08/16 21:45 100.4 100 18 127/63 Nasal Cannula 4 I & O 04/09/16 07:00 Intake Total 150 ml Output Total 200 ml Balance -50 ml General Appearance: No Apparent Distress Chronically ill Obese HEENT: PERRL/EOMI TMs Normal Normal ENT Inspection Pharynx Normal Neck: Normal Inspection Supple Respiratory: Decreased Breath Sounds Expiration Respiratory Distress Rhonci Cardiovascular: No Murmur Tachycardia Capillary Refill: Less Than 3 Seconds Neurologic/Psychiatric: Alert Oriented x3 Depressed Affect Skin: Normal Color Lymphatic: No Adenopathy Results Lab Laboratory Tests 04/08/16 21:58 04/09/16 04:20 Assessment/Plan Assessment/Plan -Pneumonia with sepsis -cefepime, vanco, Zosyn -D/C cefepime -Morbid obesity -cellulitis -monitor ARF -IVF PT is doing better will transfer to 4th floor. Clinical Quality Measures DVT/VTE Risk/Contraindication: Risk Factor Score Per Nursin RFS Level Per Nursing on Admit: 4+=Very High MARGRET GARCIA DO Apr 09, 2016 06:22
[2016-04-09] MEDS: MAGNESIUM 1 GM/100 ML IVPB 100 ML IV SCH ×2 (06:25→07:30)
[2016-04-09] MEDS: inSUlin (REGULAR) HUMAN 1 UNIT/0.01 ML (CHARGE PER UNIT) SC SCH ×4 (06:26→21:02)
[2016-04-09] MEDS ORDERED: LEVOTHYROXINE 150 MCG (LEVOTHROID) TAB PO SCH (06:30)
[2016-04-09] MEDS: PIPERACILLIN/TAZOBACTAM 4.5 GM/NS 100 ML IVPB IV SCH ×6 (06:35→22:44)
--- NOTE | 2016-04-09 06:50 | Diagnostic Imaging Report ---
EXAM: CHEST 1 VIEW, AP/PA ONLY INDICATION: Fever. COMPARISON: Chest radiograph 01/03/2015. FINDINGS: Examination limited by positioning and overlapping tissues. Persistent cardiomegaly and pulmonary venous congestion. No focal consolidation. No definite pleural effusion or pneumothorax. Stable right CVC tip in the mid to low SVC. IMPRESSION: Limited examination. Cardiomegaly and increased pulmonary venous congestion. Dictated by: Dictated on workstation # [id number]
--- NOTE | 2016-04-09 07:04 | Diagnostic Imaging Report ---
INDICATION: Sepsis and cellulitis. Portable chest 4:51 a.m. FINDINGS: Right IJ Port-A-Cath tip projects over the SVC. Heart size is normal. Pulmonary vascularity is mildly increased. Lungs are clear. IMPRESSION: Pulmonary venous congestion but less alveolar edema compared to the previous day. Dictated by: Dictated on workstation # [id number]
[2016-04-09] MEDS: RT-ALBUTEROL SULF 2.5 MG/3 ML PRE-MIX VIAL INH SCH ×4 (07:12→19:51)
--- NOTE | 2016-04-09 07:18 | Diagnostic Imaging Report ---
INDICATION: Left hand injury Two views of the left hand show no fracture, dislocation or other acute abnormalities. IMPRESSION: Negative left hand Dictated by: Dictated on workstation # [id number]
[2016-04-09 08:00] VITALS: BP 126/74
[2016-04-09] MEDS ORDERED: NF-XOP-HFA IH (08:53)
[2016-04-09] MEDS ORDERED: CRAN1TAB5 PO (08:53)
[2016-04-09] MEDS ORDERED: LEVO125T6 PO (08:53)
[2016-04-09] MEDS ORDERED: FURO80TA3 PO (08:53)
[2016-04-09] MEDS ORDERED: OXYC30TA77 PO (08:53)
[2016-04-09] MEDS ORDERED: DEXT37.54 PO (08:53)
[2016-04-09] MEDS ORDERED: AMLO5TAB2 PO (08:53)
[2016-04-09] MEDS ORDERED: ALBU2.5V4 NEB (08:53)
[2016-04-09] MEDS ORDERED: ATOR20TA66 PO (08:53)
[2016-04-09] MEDS ORDERED: GABA600T2 PO (08:53)
[2016-04-09] MEDS ORDERED: FLUT16SP22 NS (08:53)
[2016-04-09] MEDS ORDERED: METF1000 PO (08:53)
[2016-04-09] MEDS ORDERED: [UNRECOGNIZED DRUG - REMARK] PO (08:53)
[2016-04-09] MEDS ORDERED: ZINC113C8 TP (08:53)
[2016-04-09] MEDS ORDERED: LINA5TAB PO (08:53)
[2016-04-09] MEDS ORDERED: GUAI5SYR PO (08:53)
[2016-04-09] MEDS ORDERED: BUPR150T7 PO (08:53)
[2016-04-09] MEDS ORDERED: MULT-166 PO (08:53)
[2016-04-09] MEDS ORDERED: OXYC-471 PO (08:53)
[2016-04-09] MEDS ORDERED: LACT1TAB9 PO (08:53)
[2016-04-09] MEDS ORDERED: NYST15CR TP (08:53)
[2016-04-09] MEDS ORDERED: DOXY100C2 PO (08:53)
[2016-04-09] MEDS ORDERED: INSU100I14 SC (08:53)
[2016-04-09] MEDS ORDERED: INSU100I29 SC (08:53)
[2016-04-09] MEDS ORDERED: ALPR0.254 PO (08:53)
[2016-04-09] MEDS ORDERED: DOCU-143 PO (08:53)
[2016-04-09] MEDS ORDERED: CALC1TAB94 PO (08:53)
[2016-04-09] MEDS ORDERED: oxyCODONE ER 20 MG (OxyCONTIN CR) TAB PO SCH (09:00)
[2016-04-09] MEDS ORDERED: CEFEPIME 2 GM/NS 50 ML IVPB IV SCH ×2 (09:00)
[2016-04-09] MEDS: FAMOTIDINE 20MG/2ML IV (PEPCID) IVP SCH ×2 (09:05→21:01)
[2016-04-09] MEDS: VANCOMYCIN INJECTION 1,750 MG in NS IV 500 ML 500 ML IV SCH ×2 (09:07→19:44)
[2016-04-09] MEDS: FUROSEMIDE 40 MG (LASIX) TAB PO SCH (09:08)
[2016-04-09] MEDS: amLODIPine 5 MG (NORVASC) TAB PO SCH (09:08)
[2016-04-09] MEDS: CYCLOBENZAPRINE 10 MG (FLEXERIL) TAB PO SCH ×3 (09:08→21:01)
[2016-04-09] MEDS: GABAPENTIN 600 MG (NEURONTIN) TAB PO SCH ×3 (09:09→21:01)
--- NOTE | 2016-04-09 11:51 | History & Physical-Hospitalist ---
HPI History of Present Illness: HPI/Chief Complaint CC: Severe cellulitis w/Pneumonia and sepsis HPI: This is a 45[address] Dunn's that resides at [facility] was placed on antibiotic for cellulitis but presented to ER for worsening and fever. Pt has morbid obesity and hx of CVA with chronic disability so she was placed in the ICU due to severity of cellulitis and is currently receiving Zosyn and Vanc. Afebrile, vitals stable, WBC from 17 to 14, Hgb 9.7, Na+ 132. Patient Interview: Pt confirms that Dr. Dunn is her PCP. Pt states that her pain is at her baseline level. Pt came from [facility]. Pt has significant pain when she moves in bed. Physical exam stable. Scribed by Rashawn Deshpande under the direct supervision of Dr. Flores. Source: patient Exam Limitations: clinical condition Date Seen 04/09/16 Attending Physician Hermelinda Flores DO PCP Dylan Dunn MD Referring Physician Date of Admission Apr 08, 2016 at 23:45 Home Medications & Allergies Home Medications Reviewed patient Home Medication Reconciliation Form Allergies Coded Allergies: meperidine HCl (Verified Allergy, Severe, seizure, 02/14/16) fluticasone propionate (Verified Allergy, Intermediate, HIVES, 02/14/16) salmeterol xinafoate (Verified Allergy, Intermediate, HIVES, 02/14/16) ibuprofen (Unverified Allergy, Unknown, 02/14/16) levofloxacin (Verified Adverse Reaction, Unknown, 02/14/16) Past Iwpjyzu-Sdccvj-Pctfkr Hx Patient Social History Alcohol Use: Denies Use Recreational Drug Use: No Smoking Status: Former Smoker Type Used: Cigarettes 2nd Hand Smoke Exposure: No Physical Abuse Screen: No Sexual Abuse: No Recent Foreign Travel: No Contact w/other who traveled: No Recent Hopitalizations: Yes Recent Infectious Disease Expo: No Immunizations Up To Date Date of Pneumonia Vaccine: Nov 15, 2009 Date of Influenza Vaccine: Oct 17, 2015 Seasonal Allergies Seasonal Allergies: No Surgeries HX Surgeries: Yes (fractured ankle 09/18/13) Surgeries: Orthopedic Respiratory Hx Respiratory Disorders: Yes Respiratory Disorders: COPD, Sleep Apnea Cardiovascular Hx Cardiovascular Disorders: Yes Cardiac Disorders: Hypertension Neurological Hx Neurological Disorders: Yes (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 ) Endocrine Disorders: Diabetes, Insulin dep Cancer Hx Cancer: No Psychosocial Hx Psychiatric Problems: Yes Behavioral Health Disorders: Eating Disorder, Depression Integumentary HX Skin/Integumentary Disorder: Yes (MULTIPLE AREAS OF SKIN BREAKDOWN) Reviewed Nursing Assessment Reviewed/Agree w Nursing PMH: Yes Family Medical History Significant Family History: No Pertinent Family Hx Family Hx: Patient reports no known family medical history. Review of Systems ROS-Unable to Obtain: minimal hx due to pain issues Constitutional: see HPI Physical Exam Physical Exam Vital Signs Vital Sign - Last 12Hours 04/08/16 04/08/16 21:45 22:37 Temp 100.4 Pulse 100 Resp 18 B/P 127/63 Pulse Ox 100 O2 Delivery Nasal Cannula O2 Flow Rate 4 Capillary Refill : Less Than 3 Seconds General Appearance: WD/WN Chronically ill Moderate Distress Eyes: Bilateral Eye Normal Inspection, Bilateral Eye PERRL HEENT: PERRL/EOMI Normal ENT Inspection Pharynx Normal Neck: Full Range of Motion Normal Inspection Non Tender Supple Carotid Bruit Respiratory: Chest Non Tender Lungs Clear Normal Breath Sounds No Accessory Muscle Use No Respiratory Distress Cardiovascular: Regular Rate, Rhythm No Edema No Gallop No JVD No Murmur Normal Peripheral Pulses Gastrointestinal: Normal Bowel Sounds No Organomegaly No Pulsatile Mass Non Tender Soft Back: Normal Inspection No CVA Tenderness No Vertebral Tenderness Extremity: Normal Capillary Refill Normal Inspection Normal Range of Motion Non Tender No Calf Tenderness Inflammation (right leg severe and extensive cellulitis) Swelling Other Neurologic/Psychiatric: Alert Oriented x3 No Motor/Sensory Deficits Normal Mood/Affect Skin: Normal Color Warm/Dry Lymphatic: No Adenopathy Results Results/Procedures Lab Laboratory Tests 04/08/16 21:58 04/09/16 04:20 Assessment/Plan Admission Diagnosis Assessment: Severe cellulitis Suspected sepsis and pneumonia Hypoxia O2 of 68% Morbid obesity CRI HTN CVA hx Assessment and Plan Plan: Maintain antibiotics for cellulitis and pneumonia Monitor O2 Poor prognosis considering her medical issues and morbid obesity Clinical Quality Measures DVT/VTE Risk/Contraindication: Risk Factor Score Per Nursin RFS Level Per Nursing on Admit: 4+=Very High HERMELINDA FLORES DO Apr 09, 2016 11:51
[2016-04-09 17:56] LABS: BILIRUBIN,URINE NEGATIVE (NEGATIVE); KETONES,URINE NEGATIVE (NEGATIVE); LEUKOCYTE ESTERASE ,URINE NEGATIVE (NEGATIVE); NITRITE,URINE NEGATIVE (NEGATIVE); PH,URINE 5 (5-9); PROTEIN,URINE NEGATIVE (NEGATIVE); UROBILINOGEN,URINE NORMAL (NORMAL)
[2016-04-09 18:07] LABS: HYALINE CASTS, URINE 0-2 /LPF; SQUAMOUS EPITHELIAL CELL,UR RARE /HPF; WBC,URINE 0-2 /HPF
[2016-04-09] MEDS: MONTELUKAST 10 MG (SINGULAIR) TAB PO SCH (21:01)
[2016-04-09] MEDS: inSUlin DETERMIR 1 UNIT/0.01 ML (LEVEMIR) CHARGE PER UNIT SQ SCH (21:02)
[2016-04-09] MEDS: oxyCODONE ER 15 MG (oxyCONTIN CR) TAB PO SCH (21:02)
[2016-04-10 00:45] VITALS: BP 141/71
[2016-04-10] MEDS: NS W/KCL 20 MEQ/L 1,000 ML IV SCH ×4 (04:00→18:53)
[2016-04-10 04:25] VITALS: BP 113/65
[2016-04-10 05:56] LABS: BASOPHILS % (AUTO) 0 % (0-10); EOSINOPHILS # (AUTO) 0.1 10^3/uL (0.0-0.3); EOSINOPHILS % (AUTO) 1 % (0-10); LYMPHOCYTES # (AUTO) 0.7 X 10^3 (1.0-4.0); LYMPHOCYTES % (AUTO) 6 % (12-44); MEAN CORPUSCULAR HEMOGLOBIN 28 PG (25-34); MEAN CORPUSCULAR HGB CONC 33 G/DL (32-36); MEAN CORPUSCULAR VOLUME 84 FL (80-99); MEAN PLATELET VOLUME 9.4 FL (7.4-10.4); MONOCYTES # (AUTO) 0.9 X 10^3 (0.0-1.0); MONOCYTES % (AUTO) 9 % (0-12); NEUTROPHILS # (AUTO) 8.8 X 10^3 (1.8-7.8); NEUTROPHILS % (AUTO) 84 % (42-75); PLATELET COUNT 164 10^3/uL (130-400); WHITE BLOOD COUNT 10.5 10^3/uL (4.3-11.0)
[2016-04-10] MEDS ORDERED: TROUGH ORDER-PHARMACY XX NR ×2 (06:00→18:00)
[2016-04-10] MEDS: PIPERACILLIN/TAZOBACTAM 4.5 GM/NS 100 ML IVPB IV SCH ×6 (06:05→21:45)
[2016-04-10] MEDS: inSUlin (REGULAR) HUMAN 1 UNIT/0.01 ML (CHARGE PER UNIT) SC SCH ×4 (06:05→21:45)
[2016-04-10] MEDS: LEVOTHYROXINE 125 MCG (LEVOTHROID) TABLET PO SCH (06:05)
[2016-04-10 06:29] LABS: ALBUMIN 2.6 G/DL (3.2-4.5); BILIRUBIN,TOTAL 0.3 MG/DL (0.1-1.0); CALCIUM 7.6 MG/DL (8.5-10.1); CREATININE SERUM 1.51 MG/DL (0.60-1.30); MAGNESIUM 1.7 MG/DL (1.8-2.4); PHOSPHORUS 3.7 MG/DL (2.3-4.7); POTASSIUM 3.6 MMOL/L (3.6-5.0); TOTAL PROTEIN 6.1 G/DL (6.4-8.2)
[2016-04-10] MEDS: VANCOMYCIN INJECTION 1,750 MG in NS IV 500 ML 500 ML IV SCH (06:44)
--- NOTE | 2016-04-10 07:17 | Pulmonary Progress Note ---
Subjective Subjective/Events-last exam Pt appears to be improved. Exam Exam Vital Signs Date Time Temp Pulse Resp B/P Pulse Ox O2 Delivery O2 Flow Rate FiO2 04/10/16 04:25 98.6 78 20 113/65 95 Nasal Cannula 1.00 04/10/16 00:45 99.0 84 20 141/71 91 Nasal Cannula 1.00 04/09/16 19:51 95 1.00 04/09/16 19:45 2.00 04/09/16 15:04 94 04/09/16 10:42 100 1.00 04/09/16 08:00 100 4.00 04/09/16 08:00 96.0 77 12 126/74 100 Nasal Cannula 4.00 I & O 04/10/16 07:00 Intake Total 5745.25 ml Output Total 5850 ml Balance -104.75 ml General Appearance: WD/WN Chronically ill Moderate Distress HEENT: PERRL/EOMI Normal ENT Inspection Pharynx Normal Neck: Full Range of Motion Normal Inspection Non Tender Supple Carotid Bruit Respiratory: Chest Non Tender Lungs Clear Normal Breath Sounds No Accessory Muscle Use No Respiratory Distress Cardiovascular: Regular Rate, Rhythm No Edema No Gallop No JVD No Murmur Normal Peripheral Pulses Capillary Refill: Less Than 3 Seconds Extremity: Normal Capillary Refill Normal Inspection Normal Range of Motion Non Tender No Calf Tenderness Inflammation (right leg severe and extensive cellulitis) Swelling Other Neurologic/Psychiatric: Alert Oriented x3 No Motor/Sensory Deficits Normal Mood/Affect Skin: Normal Color Warm/Dry Lymphatic: No Adenopathy Results Lab Laboratory Tests 04/08/16 21:58 04/09/16 04:20 04/10/16 05:50 Assessment/Plan Assessment/Plan -Pneumonia with sepsis -Zunilda reed -Nieto cultures -Morbid obesity -cellulitis -monitor ARF -IVF Clinical Quality Measures DVT/VTE Risk/Contraindication: Risk Factor Score Per Nursin RFS Level Per Nursing on Admit: 4+=Very High MARGRET GARCIA DO Apr 10, 2016 07:17
[2016-04-10] MEDS: RT-ALBUTEROL SULF 2.5 MG/3 ML PRE-MIX VIAL INH SCH ×4 (07:20→19:42)
[2016-04-10 08:16] VITALS: BP 116/70
[2016-04-10] MEDS: FAMOTIDINE 20MG/2ML IV (PEPCID) IVP SCH ×2 (08:49→20:30)
[2016-04-10] MEDS: oxyCODONE ER 15 MG (oxyCONTIN CR) TAB PO SCH ×2 (08:49→20:30)
[2016-04-10] MEDS: GABAPENTIN 600 MG (NEURONTIN) TAB PO SCH ×3 (08:49→20:30)
[2016-04-10] MEDS: amLODIPine 5 MG (NORVASC) TAB PO SCH (08:49)
[2016-04-10] MEDS: CYCLOBENZAPRINE 10 MG (FLEXERIL) TAB PO SCH ×3 (08:49→20:30)
[2016-04-10] MEDS: FUROSEMIDE 40 MG (LASIX) TAB PO SCH (08:49)
--- NOTE | 2016-04-10 10:58 | Progress Note-Hospitalist ---
Progress Note HPI/CC on Admission CC: Severe cellulitis w/Pneumonia and sepsis HPI: This is a 45yoWF of [address] Dunn's that resides at [facility] was placed on antibiotic for cellulitis but presented to ER for worsening and fever. Pt has morbid obesity and hx of CVA with chronic disability so she was placed in the ICU due to severity of cellulitis and is currently receiving Zosyn and Vanc. Afebrile, vitals stable, WBC from 17 to 14, Hgb 9.7, Na+ 132. Patient Interview: Pt confirms that Dr. Dunn is her PCP. Pt states that her pain is at her baseline level. Pt came from [facility]. Pt has significant pain when she moves in bed. Physical exam stable. Scribed by Rashawn Deshpande under the direct supervision of Dr. Flores. Progress Notes/Assess & Plan Date Seen 04/10/16 Admission Dx/Process Assessment: Severe cellulitis Suspected sepsis and pneumonia Hypoxia O2 of 68% Morbid obesity CRI HTN CVA hx Diagonsis/Assessment & Plan Patient Interview: Pt states that her leg is still causing her significant pain. Dr. Flores informs pt that her bloodwork is improved. Pt states that she always has a catheter. Pt has not had a BM yet. Physical exam stable. Leg seems to be improving. Pt wears O2 at home at night. Pt also sues a CPAP, but does not have it with her. Pt states that she feels anxious and dirty. AFVSS, Pleasant, improved, morbidly obese RRR, CTAB decrease bases Right leg still w/extensive erythema without drainage but hot to touch Assessment: Severe cellulitis Suspected sepsis and pneumonia Hypoxia O2 of 68% on admit Morbid obesity CRI creat 1.5 HTN CVA hx Plan: Home O2 eval Consult SW regarding obtaining pt's CPAP from [facility]. Maintain antibiotics for cellulitis and pneumonia Monitor O2 Poor prognosis considering her medical issues and morbid obesity Scribed by Rashawn Deshpande under the direct supervision of Dr. Flores. SHARLENE FLORES DO Apr 10, 2016 10:58
--- NOTE | 2016-04-10 11:50 | Diagnostic Imaging Report ---
EXAM: Portable erect AP chest at 4:46 a.m. INDICATION: Pneumonia FINDINGS: The heart is mildly enlarged but stable when compared to the prior exam of 04/09/2016. The central pulmonary vascularity remains prominent consistent with pulmonary congestion. There may be a small amount of fluid in each lung base, as well. There is no consolidated pneumonia identified. The mediastinum is not widened. The osseous structures are intact. The central venous catheter on right is unchanged. IMPRESSION: There is persistent cardiomegaly and pulmonary congestion. When compared to the previous study, there does not appear to have been any significant change. A followup study would be recommended for continued evaluation. Dictated by: Dictated on workstation # [id number]
[2016-04-10 12:00] VITALS: BP 112/68
[2016-04-10 16:00] VITALS: BP 133/63
[2016-04-10] MEDS: ENOXAPARIN 40 MG/0.4 ML (LOVENOX) SYR SC SCH (16:24)
[2016-04-10] MEDS: VANCOMYCIN INJECTION 1,250 MG in NS (IVPB) 250 ML IV SCH (18:34)
[2016-04-10 19:50] VITALS: BP 134/83
[2016-04-10] MEDS: MONTELUKAST 10 MG (SINGULAIR) TAB PO SCH (20:30)
[2016-04-10] MEDS: MICONAZOLE 2% POWDER (DESENEX AF) 90 GM TOP SCH (20:33)
[2016-04-10] MEDS: inSUlin DETERMIR 1 UNIT/0.01 ML (LEVEMIR) CHARGE PER UNIT SQ SCH (21:46)
[2016-04-11] VITALS: BP 138/68
[2016-04-11] MEDS: NS W/KCL 20 MEQ/L 1,000 ML IV SCH ×3 (01:46→17:20)
[2016-04-11] MEDS: PIPERACILLIN/TAZOBACTAM 4.5 GM/NS 100 ML IVPB IV SCH ×6 (05:45→21:38)
[2016-04-11] MEDS: LEVOTHYROXINE 125 MCG (LEVOTHROID) TABLET PO SCH (05:47)
[2016-04-11] MEDS ORDERED: TROUGH ORDER-PHARMACY XX NR (06:00)
[2016-04-11 06:26] LABS: BASOPHILS % (AUTO) 0 % (0-10); EOSINOPHILS # (AUTO) 0.1 10^3/uL (0.0-0.3); EOSINOPHILS % (AUTO) 2 % (0-10); LYMPHOCYTES # (AUTO) 0.8 X 10^3 (1.0-4.0); LYMPHOCYTES % (AUTO) 11 % (12-44); MEAN CORPUSCULAR HEMOGLOBIN 28 PG (25-34); MEAN CORPUSCULAR HGB CONC 33 G/DL (32-36); MEAN CORPUSCULAR VOLUME 84 FL (80-99); MEAN PLATELET VOLUME 9.7 FL (7.4-10.4); MONOCYTES # (AUTO) 0.8 X 10^3 (0.0-1.0); MONOCYTES % (AUTO) 12 % (0-12); NEUTROPHILS # (AUTO) 5.4 X 10^3 (1.8-7.8); NEUTROPHILS % (AUTO) 76 % (42-75); PLATELET COUNT 187 10^3/uL (130-400); RED BLOOD COUNT 3.79 10^6/uL (4.35-5.85); RED CELL DISTRIBUTION WIDTH 16.4 % (10.0-14.5); WHITE BLOOD COUNT 7.1 10^3/uL (4.3-11.0)
[2016-04-11 06:48] LABS: ALBUMIN 2.8 G/DL (3.2-4.5); BILIRUBIN,TOTAL 0.3 MG/DL (0.1-1.0); CALCIUM 7.7 MG/DL (8.5-10.1); CREATININE SERUM 1.25 MG/DL (0.60-1.30); MAGNESIUM 1.6 MG/DL (1.8-2.4); PHOSPHORUS 3.1 MG/DL (2.3-4.7); POTASSIUM 3.9 MMOL/L (3.6-5.0); TOTAL PROTEIN 6.4 G/DL (6.4-8.2)
[2016-04-11] MEDS: inSUlin (REGULAR) HUMAN 1 UNIT/0.01 ML (CHARGE PER UNIT) SC SCH (07:03)
[2016-04-11 08:00] VITALS: BP 138/68
[2016-04-11] MEDS: RT-ALBUTEROL SULF 2.5 MG/3 ML PRE-MIX VIAL INH SCH ×4 (08:16→19:18)
--- NOTE | 2016-04-11 08:28 | Diagnostic Imaging Report ---
INDICATION: Pneumonia. EXAMINATION: Chest dated 04/11/2016. COMPARISON: 04/10/2016. FINDINGS: There is cardiomegaly and pulmonary vascular congestion. Findings of pulmonary edema seen throughout both lungs. No effusions. No pneumothorax. Right-sided chest port noted. It is stable. IMPRESSION: 1. Stable to slightly worsening pulmonary edema. Dictated by: Dictated on workstation # [id number]
[2016-04-11] MEDS: FAMOTIDINE 20MG/2ML IV (PEPCID) IVP SCH ×2 (09:09→20:14)
[2016-04-11] MEDS: FUROSEMIDE 40 MG (LASIX) TAB PO SCH (09:09)
[2016-04-11] MEDS: MUPIROCIN 2% OINT 22 GM (BACTROBAN) TUBE NSEACH SCH ×2 (09:09→21:39)
[2016-04-11] MEDS: GABAPENTIN 600 MG (NEURONTIN) TAB PO SCH ×3 (09:09→20:14)
[2016-04-11] MEDS: amLODIPine 5 MG (NORVASC) TAB PO SCH (09:09)
[2016-04-11] MEDS: CYCLOBENZAPRINE 10 MG (FLEXERIL) TAB PO SCH ×3 (09:09→20:14)
[2016-04-11] MEDS: MICONAZOLE 2% POWDER (DESENEX AF) 90 GM TOP SCH ×2 (09:10→21:39)
[2016-04-11] MEDS: oxyCODONE ER 15 MG (oxyCONTIN CR) TAB PO SCH ×2 (09:12→20:14)
--- NOTE | 2016-04-11 11:25 | Progress Note-Hospitalist ---
Subjective HPI/CC On Admission CC: Severe cellulitis w/Pneumonia and sepsis HPI: This is a 45yoWF of [address] Lopez that resides at [facility] was placed on antibiotic for cellulitis but presented to ER for worsening and fever. Pt has morbid obesity and hx of CVA with chronic disability so she was originally placed in the ICU due to severity of cellulitis but has since transferred to the floor. Date Seen 04/11/16 Subjective/Events-last exam She reports doing better than yesterday and desire come home. She is unsure of how her leg looks or feels and in unable to move it due to previous CVA. She is also unable to tell me her insulin regimen at the nurse home.She has had multiple episodes of cellulitis in both legs previously. Otherwise doing well, eating and drinking. Does complain of mild polydipsia. Objective Exam Vital Signs Vital Sign - Last 12Hours 04/08/16 04/08/16 21:45 22:37 Temp 100.4 Pulse 100 Resp 18 B/P 127/63 Pulse Ox 100 O2 Delivery Nasal Cannula O2 Flow Rate 4 Capillary Refill : Less Than 3 Seconds General Appearance: No Apparent Distress WD/WN Cardiovascular: Regular Rate, Rhythm No Murmur Gastrointestinal: Normal Bowel Sounds Non Tender Soft Other (obese) Extremity: Other (RLE with severe erythema, tenderness, warmth,and swelling- erythema well within demarcations, some draining blisters on dependent aspects, LLE- trace edema, no erythema, warmth) Skin: Other (RLE with blistering in dependent areas with weeping, inspected under pannus and no apparent skin breakdown) Results/Procedures Lab Laboratory Tests 04/11/16 06:15 Assessment/Plan Assessment and Plan Assess & Plan/Chief Complaint Severe Cellulitis - leukocytosis improving and afebrile - Given marked erythema and warmth will continue on IV abx at this time - Blood cx negative to date - MRSA screen positive, will need MRSA coverage with transition to oral abx if possible Pneumonia - On abx as above - On 1-2lpm NC- baseline - Incentive spirometry IDDMII - BS poorly controlled - Will increase basal insulin and increase sliding scale insulin protocol JAQUELINE, improving - Improving from admission - Monitoring closely with Vanc dosing - BMP in AM with Vanc trough GUERITA - Has CPAP at bedside Dispo: Continue on IV abx for severe cellulitis. Amara Pacheco MD Diagnosis/Problems Diagnosis/Problems (1) Morbid obesity Status: Acute (2) Cellulitis of right lower extremity Status: Acute (3) Diabetes mellitus Status: Acute (4) Pneumonia Status: Acute AMARA PACHECO MD Apr 11, 2016 11:25
[2016-04-11 16:55] VITALS: BP 149/65
[2016-04-11] MEDS: ENOXAPARIN 40 MG/0.4 ML (LOVENOX) SYR SC SCH (17:26)
[2016-04-11] MEDS: inSUlin ASPART (NovoLOG) 1 UNIT/0.01 ML (CHARGE PER UNIT) SC SCH ×2 (17:26→21:39)
[2016-04-11] MEDS: VANCOMYCIN INJECTION 1,250 MG in NS (IVPB) 250 ML IV SCH (18:51)
[2016-04-11] MEDS: oxyCODONE/APAP 5/325MG (PERCOCET 5) TABLET PO PRN (19:35)
[2016-04-11] MEDS: MONTELUKAST 10 MG (SINGULAIR) TAB PO SCH (20:14)
[2016-04-11] MEDS ORDERED: inSUlin DETERMIR 1 UNIT/0.01 ML (LEVEMIR) CHARGE PER UNIT SQ SCH (21:00)
[2016-04-12] VITALS: BP 150/68
[2016-04-12] MEDS: NS W/KCL 20 MEQ/L 1,000 ML IV SCH ×3 (00:26→06:53)
[2016-04-12] MEDS: PIPERACILLIN/TAZOBACTAM 4.5 GM/NS 100 ML IVPB IV SCH ×6 (05:18→21:55)
[2016-04-12] MEDS: LEVOTHYROXINE 125 MCG (LEVOTHROID) TABLET PO SCH (05:18)
[2016-04-12 05:24] LABS: BASOPHILS % (AUTO) 0 % (0-10); EOSINOPHILS # (AUTO) 0.2 10^3/uL (0.0-0.3); EOSINOPHILS % (AUTO) 3 % (0-10); LYMPHOCYTES # (AUTO) 0.9 X 10^3 (1.0-4.0); LYMPHOCYTES % (AUTO) 12 % (12-44); MEAN CORPUSCULAR HEMOGLOBIN 28 PG (25-34); MEAN CORPUSCULAR HGB CONC 33 G/DL (32-36); MEAN CORPUSCULAR VOLUME 85 FL (80-99); MEAN PLATELET VOLUME 8.9 FL (7.4-10.4); MONOCYTES # (AUTO) 0.8 X 10^3 (0.0-1.0); MONOCYTES % (AUTO) 11 % (0-12); NEUTROPHILS # (AUTO) 5.6 X 10^3 (1.8-7.8); NEUTROPHILS % (AUTO) 74 % (42-75); PLATELET COUNT 247 10^3/uL (130-400); RED BLOOD COUNT 3.67 10^6/uL (4.35-5.85); RED CELL DISTRIBUTION WIDTH 16.4 % (10.0-14.5); WHITE BLOOD COUNT 7.6 10^3/uL (4.3-11.0)
[2016-04-12 05:42] LABS: ALBUMIN 2.6 G/DL (3.2-4.5); BILIRUBIN,TOTAL 0.3 MG/DL (0.1-1.0); CALCIUM 7.6 MG/DL (8.5-10.1); CREATININE SERUM 1.05 MG/DL (0.60-1.30); MAGNESIUM 1.4 MG/DL (1.8-2.4); PHOSPHORUS 2.5 MG/DL (2.3-4.7); POTASSIUM 4.3 MMOL/L (3.6-5.0); TOTAL PROTEIN 6.1 G/DL (6.4-8.2)
[2016-04-12] MEDS ORDERED: TROUGH ORDER-PHARMACY XX NR (06:00)
[2016-04-12] MEDS: VANCOMYCIN INJECTION 1,250 MG in NS (IVPB) 250 ML IV SCH ×2 (06:53→19:24)
[2016-04-12] MEDS: inSUlin ASPART (NovoLOG) 1 UNIT/0.01 ML (CHARGE PER UNIT) SC SCH ×4 (06:53→21:51)
[2016-04-12] MEDS: RT-ALBUTEROL SULF 2.5 MG/3 ML PRE-MIX VIAL INH SCH ×3 (07:28→19:24)
[2016-04-12 08:00] VITALS: BP 133/65
--- NOTE | 2016-04-12 09:02 | Diagnostic Imaging Report ---
INDICATION: Pneumonia. COMPARISON: 04/11/2016. FINDINGS: There is cardiomegaly. There is venous congestion. There is no pleural effusion or pneumothorax. The mediastinum is unremarkable. IMPRESSION: Cardiomegaly and central pulmonary venous congestion. Dictated by: Dictated on workstation # [id number]
[2016-04-12] MEDS: FAMOTIDINE 20MG/2ML IV (PEPCID) IVP SCH ×2 (10:42→21:49)
[2016-04-12] MEDS: GABAPENTIN 600 MG (NEURONTIN) TAB PO SCH ×3 (10:43→21:49)
[2016-04-12] MEDS: MICONAZOLE 2% POWDER (DESENEX AF) 90 GM TOP SCH ×2 (10:43→21:51)
[2016-04-12] MEDS: CYCLOBENZAPRINE 10 MG (FLEXERIL) TAB PO SCH ×3 (10:43→21:49)
[2016-04-12] MEDS: MUPIROCIN 2% OINT 22 GM (BACTROBAN) TUBE NSEACH SCH ×2 (10:43→21:51)
[2016-04-12] MEDS: FUROSEMIDE 40 MG (LASIX) TAB PO SCH (10:43)
[2016-04-12] MEDS: amLODIPine 5 MG (NORVASC) TAB PO SCH (10:43)
[2016-04-12] MEDS: oxyCODONE ER 15 MG (oxyCONTIN CR) TAB PO SCH ×2 (10:44→21:50)
--- NOTE | 2016-04-12 11:27 | Progress Note-Hospitalist ---
Subjective HPI/CC On Admission CC: Severe cellulitis w/Pneumonia and sepsis HPI: This is a 45yoWF of [address] Lopez that resides at [facility] was placed on antibiotic for cellulitis but presented to ER for worsening and fever. Pt has morbid obesity and hx of CVA with chronic disability so she was originally placed in the ICU due to severity of cellulitis but has since transferred to the floor. Date Seen 04/12/16 Subjective/Events-last exam Patient reports feeling the same. Still has pain in leg. Unable to get out of bed because of it. Otherwise no concerns. Eating and drinking well. RN: Blood sugars still running high. Most over 200 and one over 300 despite increased insulin. Objective Exam Vital Signs Vital Sign - Last 12Hours 04/08/16 04/08/16 21:45 22:37 Temp 100.4 Pulse 100 Resp 18 B/P 127/63 Pulse Ox 100 O2 Delivery Nasal Cannula O2 Flow Rate 4 Capillary Refill : Less Than 3 Seconds General Appearance: No Apparent Distress WD/WN Obese Respiratory: Lungs Clear Normal Breath Sounds Cardiovascular: Regular Rate, Rhythm No Murmur Gastrointestinal: Normal Bowel Sounds Soft Other (obese) Extremity: Other (RLE markdedly edematous with erythema and warmth though erythema improving) Neurologic/Psychiatric: Alert Oriented x3 Other Skin: Other (RLE with improving yet still profound erythema and warmth, blistering on dependent aspects unchanged, continues to weep. LLE; trace edema with no erythema) Results/Procedures Lab Laboratory Tests 04/12/16 05:16 Assessment/Plan Assessment and Plan Assess & Plan/Chief Complaint Severe Cellulitis - leukocytosis resolved - Given marked erythema and warmth will continue on IV abx at this time - MRSA screen positive, will need MRSA coverage with transition to oral abx - Vanc trough in AM - Will add probiotics given nursing home course of antibiotics. Pneumonia - On abx as above - On 1-2lpm NC- baseline - Wearing CPAP currently IDDMII - BS poorly controlled despite increased insulin - Increase Lantus to 25 units and to sliding scale B JAQUELINE, resolved - Monitoring closely with Vanc dosing GUERITA - Has CPAP at bedside FEN/GI/PPX - DC IVF - Lovenox ppx Dispo: Continue on IV abx for severe cellulitis with hopeful transition to oral in the next 24-48 hours. Amara Pacheco MD Diagnosis/Problems Diagnosis/Problems (1) Morbid obesity Status: Acute (2) Cellulitis of right lower extremity Status: Acute (3) Diabetes mellitus Status: Acute (4) Pneumonia Status: Acute AMARA PACHECO MD Apr 12, 2016 11:27
[2016-04-12 16:01] VITALS: BP 134/63
[2016-04-12] MEDS: LACTOBACILLUS Acidoph/Bulgar (LACTINEX/FLORANEX) TAB PO SCH (16:15)
[2016-04-12] MEDS: ENOXAPARIN 40 MG/0.4 ML (LOVENOX) SYR SC SCH (16:15)
[2016-04-12] MEDS ORDERED: inSUlin DETERMIR 1 UNIT/0.01 ML (LEVEMIR) CHARGE PER UNIT SQ SCH (21:00)
[2016-04-12] MEDS: MONTELUKAST 10 MG (SINGULAIR) TAB PO SCH (21:50)
[2016-04-13] VITALS: BP 142/82
[2016-04-13 05:23] LABS: BASOPHILS % (AUTO) 0 % (0-10); EOSINOPHILS # (AUTO) 0.3 10^3/uL (0.0-0.3); EOSINOPHILS % (AUTO) 3 % (0-10); LYMPHOCYTES # (AUTO) 1.1 X 10^3 (1.0-4.0); LYMPHOCYTES % (AUTO) 12 % (12-44); MEAN CORPUSCULAR HEMOGLOBIN 28 PG (25-34); MEAN CORPUSCULAR HGB CONC 32 G/DL (32-36); MEAN CORPUSCULAR VOLUME 86 FL (80-99); MEAN PLATELET VOLUME 9.1 FL (7.4-10.4); MONOCYTES # (AUTO) 0.9 X 10^3 (0.0-1.0); MONOCYTES % (AUTO) 10 % (0-12); NEUTROPHILS # (AUTO) 6.7 X 10^3 (1.8-7.8); NEUTROPHILS % (AUTO) 75 % (42-75); PLATELET COUNT 286 10^3/uL (130-400); RED BLOOD COUNT 3.67 10^6/uL (4.35-5.85); RED CELL DISTRIBUTION WIDTH 16.5 % (10.0-14.5); WHITE BLOOD COUNT 8.9 10^3/uL (4.3-11.0)
[2016-04-13 05:44] LABS: ALANINE AMINOTRANSFERASE 23 U/L (0-55); ALBUMIN 2.6 G/DL (3.2-4.5); ANION GAP 11 MMOL/L (5-14); ASPARTATE AMINO TRANSFERASE 20 U/L (5-34); BILIRUBIN,TOTAL 0.3 MG/DL (0.1-1.0); BLOOD UREA NITROGEN 29 MG/DL (7-18); BUN/CREATININE RATIO 32; CALCIUM 7.9 MG/DL (8.5-10.1); CARBON DIOXIDE 24 MMOL/L (21-32); CHLORIDE 102 MMOL/L (98-107); GFR ESTIMATED > 60; GLUCOSE 265 MG/DL (70-105); MAGNESIUM 1.4 MG/DL (1.8-2.4); PHOSPHORUS 2.7 MG/DL (2.3-4.7); POTASSIUM 4.4 MMOL/L (3.6-5.0); SODIUM 137 MMOL/L (135-145); TOTAL PROTEIN 6.1 G/DL (6.4-8.2)
[2016-04-13] MEDS: VANCOMYCIN INJECTION 1,250 MG in NS (IVPB) 250 ML IV SCH (06:19)
[2016-04-13] MEDS: LEVOTHYROXINE 125 MCG (LEVOTHROID) TABLET PO SCH (06:40)
[2016-04-13] MEDS: LACTOBACILLUS Acidoph/Bulgar (LACTINEX/FLORANEX) TAB PO SCH ×3 (06:40→16:29)
[2016-04-13] MEDS: PIPERACILLIN/TAZOBACTAM 4.5 GM/NS 100 ML IVPB IV SCH ×6 (06:40→20:44)
[2016-04-13] MEDS: inSUlin ASPART (NovoLOG) 1 UNIT/0.01 ML (CHARGE PER UNIT) SC SCH ×4 (06:41→20:42)
--- NOTE | 2016-04-13 07:56 | Pulmonary Progress Note ---
Subjective Subjective/Events-last exam Pt appears improved Exam Exam Vital Signs Date Time Temp Pulse Resp B/P Pulse Ox O2 Delivery O2 Flow Rate FiO2 04/13/16 00:00 98.8 83 18 142/82 96 NIV/CPAP 1.00 04/12/16 20:50 2.00 04/12/16 19:24 96 1.00 04/12/16 16:01 97.3 85 20 134/63 91 NIV/CPAP 1.00 04/12/16 15:37 94 04/12/16 08:00 91 1.00 04/12/16 08:00 98.4 70 20 133/65 96 Nasal Cannula 1.00 I & O 04/13/16 07:00 Intake Total 4075.0 ml Output Total 6175 ml Balance -2100.0 ml General Appearance: No Apparent Distress, WD/WN, Obese HEENT: PERRL/EOMI, TMs Normal, Normal ENT Inspection, Pharynx Normal Neck: Normal Inspection, Supple Respiratory: Lungs Clear, Normal Breath Sounds Cardiovascular: Regular Rate, Rhythm, No Murmur Capillary Refill: Less Than 3 Seconds Extremity: Other (RLE markdedly edematous with erythema and warmth though erythema improving) Neurologic/Psychiatric: Alert, Oriented x3, Other Skin: Other (RLE with improving yet still profound erythema and warmth, blistering on dependent aspects unchanged, continues to weep. LLE; trace edema with no erythema) Lymphatic: No Adenopathy Results Lab Laboratory Tests 04/12/16 05:16 04/13/16 05:10 Assessment/Plan Assessment/Plan -Pneumonia with sepsis -Zunilda reed- scheduled to D/C tomorrow -Nieto cultures -Morbid obesity -cellulitis -monitor ARF -IVF Clinical Quality Measures DVT/VTE Risk/Contraindication: Risk Factor Score Per Nursin RFS Level Per Nursing on Admit: 4+=Very High MARGRET GARCIA DO Apr 13, 2016 07:56
--- NOTE | 2016-04-13 09:11 | Diagnostic Imaging Report ---
EXAMINATION: Portable semiupright radiograph of the chest. INDICATION: Pneumonia. FINDINGS: When compared to 04/12/2016, the previously seen congestive changes appear to be slightly improved with a minimal airspace remaining edema component suggested in the left upper lobe and right lung base. No significant effusion. No pneumothorax. The heart size is enlarged. There is a right IJ venous line with the tip at the distal SVC level. IMPRESSION: Improving vascular congestion and left upper lobe and right lung base mild infiltrates which may relate to an alveolar component of edema. Dictated by: Dictated on workstation # [id number]
[2016-04-13] MEDS: amLODIPine 5 MG (NORVASC) TAB PO SCH (09:15)
[2016-04-13] MEDS: FAMOTIDINE 20MG/2ML IV (PEPCID) IVP SCH ×2 (09:15→20:41)
[2016-04-13] MEDS: CYCLOBENZAPRINE 10 MG (FLEXERIL) TAB PO SCH ×3 (09:15→20:41)
[2016-04-13] MEDS: MUPIROCIN 2% OINT 22 GM (BACTROBAN) TUBE NSEACH SCH ×2 (09:15→20:42)
[2016-04-13] MEDS: GABAPENTIN 600 MG (NEURONTIN) TAB PO SCH ×3 (09:15→20:41)
[2016-04-13] MEDS: FUROSEMIDE 40 MG (LASIX) TAB PO SCH (09:15)
[2016-04-13] MEDS: MICONAZOLE 2% POWDER (DESENEX AF) 90 GM TOP SCH ×2 (09:16→20:42)
[2016-04-13] MEDS: oxyCODONE ER 15 MG (oxyCONTIN CR) TAB PO SCH ×2 (09:23→20:41)
[2016-04-13] MEDS: RT-ALBUTEROL SULF 2.5 MG/3 ML PRE-MIX VIAL INH SCH ×3 (10:07→20:33)
--- NOTE | 2016-04-13 11:27 | Progress Note-Hospitalist ---
Standard Progress Note Progress Notes/Assess & Plan Date Seen 04/13/16 Diagnosis Assessment: Severe cellulitis Suspected sepsis and pneumonia Hypoxia O2 of 68% Morbid obesity CRI HTN CVA hx Assess & Plan/Chief Complaint The patient is a 45-year-old white female who is morbidly morbidly obese. She weighs in the realm of 410 pounds. She is clearly narcoleptic as well and uses a pressure support even in the daytime. She is on day number 50 this hospitalization. It was precipitated by a flaming cellulitis of the right lower extremity. There is indelible marking of the limits which apparently avoided the medial section of the right thigh. There is clearly recession from the Atif however the remainder to be improved is still greater than that which has resolved. There is what appears to be a large blister which has burst over the posterior aspect of the right calf. Physical exam: She is somnolent and answers questions only yes and no. Lungs showed distant and shallow breath sounds. CV is regular without murmur. The abdomen is absolutely huge. The extremities are as described above. The left second finger is clearly swollen and quite tender to light touch suggesting the possibility of gout. Impression: 1.morbidly morbid obesity. 2.narcolepsy. 3.impressive cellulitis right lower extremity. 4.possible gout Plan: Continue IV antibiotics. Uric acid, serum Labs Laboratory Tests 04/12/16 05:16 04/13/16 05:10 Diagnosis/Problems Diagnosis/Problems (1) Morbid obesity Status: Acute (2) Cellulitis of right lower extremity Status: Acute (3) Diabetes mellitus Status: Acute (4) Pneumonia Status: Acute JODEE STEWART MD Apr 13, 2016 11:27
[2016-04-13] MEDS ORDERED: CATHETER FLUSH 10 ML SYR IV PRN (12:30)
[2016-04-13] MEDS: CATHETER FLUSH 10 ML SYR IV SCH ×2 (14:06→20:42)
[2016-04-13 16:29] VITALS: BP 119/56
[2016-04-13] MEDS: ENOXAPARIN 40 MG/0.4 ML (LOVENOX) SYR SC SCH (16:29)
[2016-04-13] MEDS: VANCOMYCIN IV ADD-VANTAGE 1,000 MG in SODIUM CHLORIDE (ADD-VANTAGE) 250 ML IV SCH (18:29)
[2016-04-13] MEDS: MONTELUKAST 10 MG (SINGULAIR) TAB PO SCH (20:41)
[2016-04-13] MEDS: inSUlin DETERMIR 1 UNIT/0.01 ML (LEVEMIR) CHARGE PER UNIT SQ SCH (20:43)
[2016-04-14] VITALS: BP 130/66
[2016-04-14] MEDS: CATHETER FLUSH 10 ML SYR IV SCH ×3 (05:49→21:03)
[2016-04-14] MEDS: LACTOBACILLUS Acidoph/Bulgar (LACTINEX/FLORANEX) TAB PO SCH ×3 (05:49→16:57)
[2016-04-14] MEDS: inSUlin ASPART (NovoLOG) 1 UNIT/0.01 ML (CHARGE PER UNIT) SC SCH ×4 (05:49→21:03)
[2016-04-14] MEDS: LEVOTHYROXINE 125 MCG (LEVOTHROID) TABLET PO SCH (05:49)
[2016-04-14] MEDS: VANCOMYCIN IV ADD-VANTAGE 1,000 MG in SODIUM CHLORIDE (ADD-VANTAGE) 250 ML IV SCH (05:50)
[2016-04-14 06:01] LABS: BASOPHILS % (AUTO) 0 % (0-10); EOSINOPHILS # (AUTO) 0.3 10^3/uL (0.0-0.3); EOSINOPHILS % (AUTO) 3 % (0-10); LYMPHOCYTES # (AUTO) 1.2 X 10^3 (1.0-4.0); LYMPHOCYTES % (AUTO) 13 % (12-44); MEAN CORPUSCULAR HEMOGLOBIN 28 PG (25-34); MEAN CORPUSCULAR HGB CONC 32 G/DL (32-36); MEAN CORPUSCULAR VOLUME 86 FL (80-99); MEAN PLATELET VOLUME 8.8 FL (7.4-10.4); MONOCYTES # (AUTO) 0.7 X 10^3 (0.0-1.0); MONOCYTES % (AUTO) 8 % (0-12); NEUTROPHILS % (AUTO) 76 % (42-75); PLATELET COUNT 333 10^3/uL (130-400); RED BLOOD COUNT 3.65 10^6/uL (4.35-5.85); RED CELL DISTRIBUTION WIDTH 16.5 % (10.0-14.5); WHITE BLOOD COUNT 9.2 10^3/uL (4.3-11.0)
[2016-04-14 06:16] LABS: ALANINE AMINOTRANSFERASE 23 U/L (0-55); ALBUMIN 2.5 G/DL (3.2-4.5); ANION GAP 11 MMOL/L (5-14); ASPARTATE AMINO TRANSFERASE 17 U/L (5-34); BILIRUBIN,TOTAL 0.3 MG/DL (0.1-1.0); BLOOD UREA NITROGEN 30 MG/DL (7-18); BUN/CREATININE RATIO 33; CARBON DIOXIDE 28 MMOL/L (21-32); CHLORIDE 100 MMOL/L (98-107); CREATININE SERUM 0.92 MG/DL (0.60-1.30); GFR ESTIMATED > 60; GLUCOSE 232 MG/DL (70-105); MAGNESIUM 1.3 MG/DL (1.8-2.4); PHOSPHORUS 3.6 MG/DL (2.3-4.7); POTASSIUM 4.4 MMOL/L (3.6-5.0); SODIUM 139 MMOL/L (135-145)
[2016-04-14] MEDS: RT-ALBUTEROL SULF 2.5 MG/3 ML PRE-MIX VIAL INH SCH ×3 (07:13→21:00)
--- NOTE | 2016-04-14 07:32 | Pulmonary Progress Note ---
Subjective Subjective/Events-last exam Pulmonary status is improving. Exam Exam Vital Signs Date Time Temp Pulse Resp B/P Pulse Ox O2 Delivery O2 Flow Rate FiO2 04/14/16 00:00 97.5 87 18 130/66 92 NIV/CPAP 1.00 04/13/16 20:33 94 2.00 04/13/16 20:00 2.00 04/13/16 16:29 97.8 86 20 119/56 95 NIV/CPAP 1.00 04/13/16 15:52 89 1.00 04/13/16 10:07 92 1.00 04/13/16 08:00 2.00 04/13/16 08:00 97.7 75 12 99 NIV/CPAP 1.00 I & O 04/14/16 07:00 Intake Total 2220 ml Output Total 4950 ml Balance -2730 ml General Appearance: No Apparent Distress WD/WN Obese HEENT: PERRL/EOMI TMs Normal Normal ENT Inspection Pharynx Normal Neck: Normal Inspection Supple Respiratory: Lungs Clear Normal Breath Sounds Cardiovascular: Regular Rate, Rhythm No Murmur Capillary Refill: Less Than 3 Seconds Extremity: Other (RLE markdedly edematous with erythema and warmth though erythema improving) Neurologic/Psychiatric: Alert Oriented x3 Other Skin: Other (RLE with improving yet still profound erythema and warmth, blistering on dependent aspects unchanged, continues to weep. LLE; trace edema with no erythema) Lymphatic: No Adenopathy Results Lab Laboratory Tests 04/13/16 05:10 04/14/16 05:53 Assessment/Plan Assessment/Plan -Pneumonia-- Resolving -cellulitis -IV ABx -Morbid obesity ARF -IVF Pt is doing well from pulmonary standpoint. ABx are now for cellulitis . I am going to sign off please call with any questions or concerns. Clinical Quality Measures DVT/VTE Risk/Contraindication: Risk Factor Score Per Nursin RFS Level Per Nursing on Admit: 4+=Very High MARGRET GARCIA DO Apr 14, 2016 07:32
[2016-04-14] MEDS: FAMOTIDINE 20MG/2ML IV (PEPCID) IVP SCH ×2 (08:21→21:02)
[2016-04-14] MEDS: FUROSEMIDE 40 MG (LASIX) TAB PO SCH (08:21)
[2016-04-14] MEDS: amLODIPine 5 MG (NORVASC) TAB PO SCH (08:21)
[2016-04-14] MEDS: GABAPENTIN 600 MG (NEURONTIN) TAB PO SCH ×3 (08:21→21:02)
[2016-04-14] MEDS: CYCLOBENZAPRINE 10 MG (FLEXERIL) TAB PO SCH ×3 (08:22→21:02)
[2016-04-14] MEDS: oxyCODONE ER 15 MG (oxyCONTIN CR) TAB PO SCH ×2 (08:23→21:02)
[2016-04-14] MEDS: MICONAZOLE 2% POWDER (DESENEX AF) 90 GM TOP SCH ×2 (08:23→21:03)
[2016-04-14] MEDS: MUPIROCIN 2% OINT 22 GM (BACTROBAN) TUBE NSEACH SCH ×2 (08:23→21:04)
[2016-04-14] MEDS: inSUlin DETERMIR 1 UNIT/0.01 ML (LEVEMIR) CHARGE PER UNIT SQ SCH ×2 (08:24→21:03)
--- NOTE | 2016-04-14 08:33 | Diagnostic Imaging Report ---
INDICATION: Pneumonia. COMPARISON STUDY: Chest from yesterday. FINDINGS: A portable upright view of the chest demonstrates increasing infiltrates in the left perihilar region. Milder infiltrates in the right perihilar region are stable. Cardiomegaly is again identified. No effusions are seen. IMPRESSION: There are increasing infiltrates in the left perihilar region extending into the left upper lobe with stable mild infiltrates in the right perihilar region. Dictated by: Dictated on workstation # [id number]
[2016-04-14 08:37] LABS: ABG BASE EXCESS 6.2 MMOL/L (-2.5-2.5); ABG HCO3 31 MMOL/L (23-27); ABG OXYGEN SATURATION 96 % (94-100); ABG PCO2 46 MMHG (35-45); ABG PH 7.44 (7.37-7.43); ABG PO2 78 MMHG (79-93); ABG TCO2 31.9 MMOL/L (21.0-31.0)
[2016-04-14 08:38] LABS: ALLENS TEST YES-POS
[2016-04-14 08:47] VITALS: BP 149/90
--- NOTE | 2016-04-14 11:43 | Progress Note-Hospitalist ---
Standard Progress Note Progress Notes/Assess & Plan Date Seen 04/14/16 Diagnosis Assessment: Severe cellulitis Suspected sepsis and pneumonia Hypoxia O2 of 68% Morbid obesity CRI HTN CVA hx Assess & Plan/Chief Complaint The patient is reported by nurses to become rather somnolent today. She has passed on her last 2 meals. Accordingly her rapid acting insulin has been held. A blood gas was drawn which shows a pH of 7.44 and a respectable PCO2. This would take hypercapnea from the logical cause. Physical exam: Her leg shows evidence of improvement today with return of the erythema from the indelible markers. The red is taking on a brown overtone. There are remaining large blisters over the posterior calf which have opened. New blisters are noted along the distal lateral aspect over the fibula. Impression: Morbidly morbid obesity. 2.extensive right lower extremity cellulitis now with signs of improvement. 3.somnolence. 4.diabetes mellitus type II Plan: The antibiotics have been reduced to vancomycin only. We will ask wound care for consultation Labs Laboratory Tests 04/13/16 05:10 04/14/16 05:53 Diagnosis/Problems Diagnosis/Problems (1) Morbid obesity Status: Acute (2) Cellulitis of right lower extremity Status: Acute (3) Diabetes mellitus Status: Acute (4) Pneumonia Status: Acute JODEE STEWART MD Apr 14, 2016 11:43
[2016-04-14 16:50] VITALS: BP 154/79
[2016-04-14] MEDS: ENOXAPARIN 40 MG/0.4 ML (LOVENOX) SYR SC SCH (16:56)
[2016-04-14] MEDS ORDERED: TROUGH ORDER-PHARMACY XX NR (18:00)
[2016-04-14] MEDS ORDERED: VANCOMYCIN IV ADD-VANTAGE 1,000 MG in SODIUM CHLORIDE (ADD-VANTAGE) 250 ML IV SCH (19:00)
[2016-04-14] MEDS: MONTELUKAST 10 MG (SINGULAIR) TAB PO SCH (21:02)
--- NOTE | 2016-04-14 22:52 | Wound Care Progress Note ---
Subjective Subjective Subjective/Events-last exam 45 year old female admitted with cellulitis of bilateral legs, fever and pneumonia. The cellulitis of the left leg has improved on IV Vancomycin and Zosyn, but the right leg has deteriorated significantly, with a new finding of necrotic skin changes. The patient has paralysis and diminished sensation in her right leg subsequent to a stroke. In spite of the clear inflammatory process in the R leg, the patient denies any significant pain in her leg. 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 SH: Non-smoker, - EtOH, sister is caregiver. Review of Systems General: No Chills HEENT: Other (L facial weakness) Pulmonary: No Dyspnea Cardiovascular: : EdemaNo: Chest Pain Gastrointestinal: : Nausea Genitourinary: Dysuria Incontinence Musculoskeletal: : leg pain Neurological: : Numbness: Weakness Objective Exam Last Set of Vital Signs Vital Signs Date Time Temp Pulse Resp B/P Pulse Ox O2 Delivery O2 Flow Rate FiO2 04/14/16 20:00 2.00 04/14/16 16:50 97.3 93 22 154/79 97 Nasal Cannula Capillary Refill : Less Than 3 Seconds I&O Intake and Output 04/14/16 00:00 Intake Total 2470 ml Output Total 5325 ml Balance -2855 ml Intake Oral 2370 ml IV Total 100 ml Output Urine Total 5325 ml General: Alert, No Acute Distress HEENT: Atraumatic Neck: Supple Lungs: Normal Air Movement Heart: Regular Rate Abdomen: Soft Extremities: Other (Severe discoloration of R calf and medial thigh with areas of necrosis. R PT and DP non-palpable) Skin: Other (Severe blistering, with gelatinous material in the blister.) Neuro: Other (Bedfast, L facial droop, cognitive deficit.) Psych/Mental Status: Other (Limited memory of past events.) Results Lab Laboratory Tests 04/14/16 05:04: Glucometer 247H 04/14/16 05:53: Alanine Aminotransferase (ALT/SGPT) 23, Albumin 2.5L, Alkaline Phosphatase 177H , Anion Gap 11, Aspartate Amino Transf (AST/SGOT) 17, BUN/Creatinine Ratio 33, Basophils # (Auto) 0.0, Basophils (%) (Auto) 0, Blood Urea Nitrogen 30H, Calcium Level 8.0L, Carbon Dioxide Level 28, Chloride Level 100, Creatinine 0.92 , Eosinophils # (Auto) 0.3, Eosinophils (%) (Auto) 3, Estimat Glomerular Filtration Rate > 60, Glucose Level 232H, Hematocrit 32L, Hemoglobin 10.1L, Lymphocytes # (Auto) 1.2, Lymphocytes (%) (Auto) 13, Magnesium Level 1.3L, Mean Corpuscular Hemoglobin 28, Mean Corpuscular Hemoglobin Concent 32, Mean Corpuscular Volume 86, Mean Platelet Volume 8.8, Monocytes # (Auto) 0.7, Monocytes (%) (Auto) 8, Neutrophils # (Auto) 7.0, Neutrophils (%) (Auto) 76H, Phosphorus Level 3.6, Platelet Count 333, Potassium Level 4.4, Red Blood Count 3.65L, Red Cell Distribution Width 16.5H, Sodium Level 139, Total Bilirubin 0.3 , Total Protein 6.0L, White Blood Count 9.2 04/14/16 08:21: Glucometer 187H 04/14/16 08:30: Shravan Test YES-POS, Arterial Blood Base Excess 6.2H, Arterial Blood HCO3 31H, Arterial Blood Oxygen Saturation 96, Arterial Blood Partial Pressure CO2 46H, Arterial Blood Partial Pressure O2 78L, Arterial Blood Total CO2 31.9H, Arterial Blood pH 7.44H, Blood Gas Inspired Oxygen 2L, Blood Gas Patient Temperature 98.0, Blood Gas Puncture Site LT WRIST, Blood Gas Ventilator Setting NO 04/14/16 10:26: Glucometer 225H 04/14/16 16:52: Glucometer 233H 04/14/16 18:29: Vancomycin Level Trough 20.2H 04/14/16 20:38: Glucometer 215H Microbiology 04/09/16 Blood Culture - Final, Complete No growth 04/09/16 MRSA Screen - Final, Complete Assessment/Plan Assessment/Plan Assessment/Plan 1. Severe, progressive, necrotizing cellulitis of R leg, exact etiology uncertain. 2. R sided paralysis, with diminished sensation R leg. 3. Diabetes mellitus. 4. Morbid obesity. 5. Debility and cognitive deficit. Plan: Culture of blister fluid obtained. Plan full thickness tissue biopsy. Arterial and venous duplex scan. Consider surgical debridement if necrosis advances. PRISCILLA BERMEO MD Apr 14, 2016 22:52
[2016-04-15] VITALS: BP 129/67
[2016-04-15] MEDS: inSUlin ASPART (NovoLOG) 1 UNIT/0.01 ML (CHARGE PER UNIT) SC SCH ×4 (05:24→20:58)
[2016-04-15] MEDS: LEVOTHYROXINE 125 MCG (LEVOTHROID) TABLET PO SCH (05:52)
[2016-04-15] MEDS: CATHETER FLUSH 10 ML SYR IV SCH ×3 (05:52→20:59)
[2016-04-15] MEDS: LACTOBACILLUS Acidoph/Bulgar (LACTINEX/FLORANEX) TAB PO SCH ×3 (05:52→16:55)
[2016-04-15] MEDS ORDERED: TROUGH ORDER-PHARMACY XX NR (06:00)
[2016-04-15] MEDS: RT-ALBUTEROL SULF 2.5 MG/3 ML PRE-MIX VIAL INH SCH ×3 (07:07→19:21)
[2016-04-15 08:21] VITALS: BP 140/66
[2016-04-15] MEDS: GABAPENTIN 600 MG (NEURONTIN) TAB PO SCH ×3 (08:29→20:57)
[2016-04-15] MEDS: FAMOTIDINE 20MG/2ML IV (PEPCID) IVP SCH ×2 (08:29→20:57)
[2016-04-15] MEDS: FUROSEMIDE 40 MG (LASIX) TAB PO SCH (08:29)
[2016-04-15] MEDS: CYCLOBENZAPRINE 10 MG (FLEXERIL) TAB PO SCH ×3 (08:29→20:58)
[2016-04-15] MEDS: VANCOMYCIN INJECTION 1,500 MG in NS IV 500 ML 500 ML IV SCH (08:30)
[2016-04-15] MEDS: POLYETHYLENE GLYCOL 17 GM (MIRALAX) PACK PO SCH (08:30)
[2016-04-15] MEDS: amLODIPine 5 MG (NORVASC) TAB PO SCH (08:30)
[2016-04-15] MEDS: MICONAZOLE 2% POWDER (DESENEX AF) 90 GM TOP SCH ×2 (08:30→20:57)
[2016-04-15] MEDS: oxyCODONE ER 15 MG (oxyCONTIN CR) TAB PO SCH ×2 (08:30→20:58)
[2016-04-15] MEDS: MUPIROCIN 2% OINT 22 GM (BACTROBAN) TUBE NSEACH SCH ×2 (08:30→20:57)
--- NOTE | 2016-04-15 08:30 | Diagnostic Imaging Report ---
INDICATION: Followup pneumonia. Cough. COMPARISON: 04/14/2016 FINDINGS: There is a hyperdense line projecting over the expected region of the central venous catheter on the right. Tip terminates near the superior cavoatrial junction. This is unchanged from prior examination. Bilateral perihilar and basilar patchy pulmonary opacities have improved but persist. No confluent consolidation. Possible small right pleural effusion is unchanged. No pneumothorax. Stable cardiomediastinal silhouette. IMPRESSION: 1. Improving but persistent patchy basilar opacities, greater on the right. This could correlate with resolving pneumonia as per provided history. 2. Question of trace right pleural effusion. Dictated by: Dictated on workstation # [id number]
[2016-04-15] MEDS: inSUlin DETERMIR 1 UNIT/0.01 ML (LEVEMIR) CHARGE PER UNIT SQ SCH ×2 (08:34→20:58)
--- NOTE | 2016-04-15 09:55 | Diagnostic Imaging Report ---
INDICATION: Sepsis and cellulitis. FINDINGS: There is no soft tissue gas. No focal pathological foreign body. Partially threaded screws transfix the medial malleolus, plate and screws transfix the distal fibula. No residual or recurrent fracture line is found. No acute periosteal reaction. IMPRESSION: Postoperative changes to the ankle. No soft tissue gas, foreign body, bony destruction nor acute periosteal reaction. Dictated by: Dictated on workstation # [id number]
--- NOTE | 2016-04-15 10:22 | Progress Note-Hospitalist ---
Progress Note HPI/CC on Admission CC: Severe cellulitis w/Pneumonia and sepsis HPI: This is a 45[address] Dunn'george that resides at [facility] was placed on antibiotic for cellulitis but presented to ER for worsening and fever. Pt has morbid obesity and hx of CVA with chronic disability so she was originally placed in the ICU due to severity of cellulitis but has since transferred to the floor. Progress Notes/Assess & Plan Date Seen 04/15/16 Admission Dx/Process Assessment: Severe cellulitis Suspected sepsis and pneumonia Hypoxia O2 of 68% Morbid obesity CRI HTN CVA hx Diagonsis/Assessment & Plan Wound care Dr. Workman contacted me concerned about compartment syndrome He ordered ultrasound and x-ray and will consult Dr. Maldonado Patient feels okay other than the pain in her right leg On broad-spectrum aggressive antibiotic treatment and it appears that the erythema has significantly improved from the line that was drawn on admission. It does concern us regarding the bolus formation and the beginnings of early ulcerations. AFVSS, Pleasant, improved, morbidly obese RRR, CTAB decrease bases Right leg still w/extensive but improved erythema without drainage but noted ulcerations Assessment: Severe cellulitis with possible compartment syndrome pursuing ultrasounds x- rays and surgical consultation s/p sepsis with pneumonia Hypoxia O2 of 68% on admit Morbid obesity CRI creat 1.5 HTN CVA hx GUERITA severe on CPAP Plan: Check ultrasounds and await Dr. Maldonado's decision whether compartment syndrome is present and may need surgical management Poor prognosis considering her medical issues and morbid obesity SHARLENE CHILD DO Apr 15, 2016 10:22
--- NOTE | 2016-04-15 10:26 | Diagnostic Imaging Report ---
EXAMINATION: Bilateral lower extremity duplex venous ultrasound. TECHNIQUE: DVT protocol. Multiple sonographic images with color Doppler and waveform interrogation were performed of the lower extremity veins, bilaterally, with compression and augmentation maneuvers. INDICATION: Bilateral leg edema. FINDINGS: The patients size and superimposed edema results in deep veins on both sides which prevents evaluation of the lower segment of the superficial femoral vein on both sides. Also the right popliteal vein is not seen. The common femoral vein, the profunda and proximal and mid segments of the superficial femoral veins are patent bilaterally with color flow and compressibility demonstrated. The veins below the knee were not visualized on either side. IMPRESSION: Limited exam due to the large size of the patient and superimposed edema. On the right side the inferior segment of the superficial femoral vein, the popliteal vein and infrapopliteal veins are not well evaluated. On the left side veins in the calf and the inferior segment of the superficial femoral vein is not seen. Dictated by: Dictated on workstation # [id number]
--- NOTE | 2016-04-15 10:30 | Diagnostic Imaging Report ---
Right lower extremity arterial vascular ultrasound. INDICATION: Extensive wounds and bed sores in the right leg. FINDINGS: The exam is limited due to the large body habitus and superimposed leg swelling. The common femoral, profunda, and the proximal and mid segments of the SFA are seen with color flow and monophasic waveforms. Mild increased velocity in the right CLINICAL REVIEW SPECIALIST to 213 cm/s is seen. The distal SFA and popliteal arteries are not seen. The anterior tibial artery proximally is not seen. The dorsalis pedis is patent with monophasic flow with velocity of 58. The posterior tibial artery is not seen. IMPRESSION: Limited exam. The distal SFA and popliteal arteries are not seen. Monophasic waveforms are noted proximally. Dictated by: Dictated on workstation # [id number]
[2016-04-15 16:00] VITALS: BP 136/94
[2016-04-15] MEDS: ENOXAPARIN 40 MG/0.4 ML (LOVENOX) SYR SC SCH (16:56)
[2016-04-15] MEDS: MONTELUKAST 10 MG (SINGULAIR) TAB PO SCH (20:57)
[2016-04-16] VITALS: BP 164/74
[2016-04-16] MEDS: CATHETER FLUSH 10 ML SYR IV SCH (05:38)
[2016-04-16] MEDS: inSUlin ASPART (NovoLOG) 1 UNIT/0.01 ML (CHARGE PER UNIT) SC SCH ×2 (05:38→11:00)
[2016-04-16] MEDS: LACTOBACILLUS Acidoph/Bulgar (LACTINEX/FLORANEX) TAB PO SCH ×2 (05:38→10:25)
[2016-04-16] MEDS: LEVOTHYROXINE 125 MCG (LEVOTHROID) TABLET PO SCH (05:38)
[2016-04-16] MEDS: RT-ALBUTEROL SULF 2.5 MG/3 ML PRE-MIX VIAL INH SCH (07:09)
--- NOTE | 2016-04-16 08:02 | Diagnostic Imaging Report ---
INDICATION: Pneumonia. TECHNIQUE: Single view chest 4:57 AM. CORRELATION STUDY: 04/15/2016 FINDINGS: Heart size enlarged, but stable. Vasculature appears prominent particularly left perihilar region. Patchy pulmonary opacities are persisting, but overall perhaps slightly improved. No new areas of infiltrate. IMPRESSION: 1. Continued improving patchy bilateral pulmonary opacities. Findings most pronounced left perihilar region. Vasculature is mildly prominent. Dictated by: Dictated on workstation # [id number]
[2016-04-16 08:13] VITALS: BP 111/67
[2016-04-16] MEDS: amLODIPine 5 MG (NORVASC) TAB PO SCH (08:23)
[2016-04-16] MEDS: GABAPENTIN 600 MG (NEURONTIN) TAB PO SCH (08:23)
[2016-04-16] MEDS: FUROSEMIDE 40 MG (LASIX) TAB PO SCH (08:24)
[2016-04-16] MEDS: MUPIROCIN 2% OINT 22 GM (BACTROBAN) TUBE NSEACH SCH (08:25)
[2016-04-16] MEDS: CYCLOBENZAPRINE 10 MG (FLEXERIL) TAB PO SCH (08:25)
[2016-04-16] MEDS: FAMOTIDINE 20MG/2ML IV (PEPCID) IVP SCH (08:25)
[2016-04-16] MEDS: MICONAZOLE 2% POWDER (DESENEX AF) 90 GM TOP SCH (08:26)
[2016-04-16] MEDS: inSUlin DETERMIR 1 UNIT/0.01 ML (LEVEMIR) CHARGE PER UNIT SQ SCH (08:26)
[2016-04-16] MEDS: oxyCODONE ER 15 MG (oxyCONTIN CR) TAB PO SCH (08:26)
[2016-04-16] MEDS: VANCOMYCIN INJECTION 1,500 MG in NS IV 500 ML 500 ML IV SCH (08:36)
[2016-04-16] MEDS: POLYETHYLENE GLYCOL 17 GM (MIRALAX) PACK PO SCH (09:00)
[2016-04-16] MEDS ORDERED: diphenhydrAMINE 50 MG/ML INJ (BENADRYL) IVP PRN (10:15)
--- NOTE | 2016-04-16 10:22 | CONSULTATION REPORT ---
DATE OF CONSULTATION: 04/15/2016 ADMITTING PHYSICIAN: Dr. Flores. CONSULTING PHYSICIAN: Dr. Workman. Ms. Lala Maier is a 45-year-old female who is a [facility] resident. She has history of morbid obesity, as well as history of CVA and chronic instability. She was initially admitted for cellulitis of bilateral lower extremities, which was worse on the left lower extremity initially. Over time and IV Zosyn, as well as vancomycin, the cellulitis of the left lower extremity has improved considerably. She has developed worsening symptoms of her right lower extremity. She has +2 out of 3 bilateral lower extremity edema. She has several large bulla scattered throughout the hernandes as well as the calf region. There are also some small areas of opening as well as necrotic skin. There is no crepitance. All 4 compartments are soft. She also has good distal palpable posterior tibial and dorsalis pedis pulses. She also does not have any paresthesia. PAST MEDICAL HISTORY: 1. COPD. 2. Sleep apnea. 3. Morbid obesity. 4. History of CVA x4 with right-sided paralysis. 5. History of herpes simplex virus. 6. Chronic UTI. 7. Insulin-dependent diabetes. 8. Depression. PAST SURGERIES: Left ankle ORIF x2. ALLERGIES: 1. MEPERIDINE. 2. FLUTICASONE. 3. SALMETEROL. 4. IBUPROFEN. 5. LEVOFLOXACIN. MEDICATIONS: 1. Albuterol p.r.n. 2. Alprazolam 0.25 mg q.6 hours p.r.n. 3. Amlodipine 5 mg daily. 4. Aspirin 325 mg daily. 5. Atorvastatin 20 mg daily. 6. Bupropion 300 mg daily. 7. Plavix 75 mg daily. 8. Cyclobenzaprine 10 mg t.i.d. 9. Colace 100 mg daily. 10. Doxycycline 100 mg b.i.d. 11. Fexofenadine 100 mg daily. 12. Fluticasone spray daily. 13. Furosemide 80 mg daily. 14. Gabapentin 600 mg t.i.d. 15. Glucagon p.r.n. 16. Insulin sliding scale. 17. Levemir insulin 19 units at bedtime. 18. Xopenex b.i.d. 19. Thyroxine 125 mcg daily. 20. Tradjenta 5 mg daily. 21. Metformin 1000 mg b.i.d. 22. Montelukast 10 mg daily. 23. Sorrento-3 fatty acid 1000 mg t.i.d. 24. Oxycodone 30 mg b.i.d. 25. Percocet p.r.n. SOCIAL HISTORY: Negative smoke. Negative alcohol. FAMILY HISTORY: Noncontributory. VITAL SIGNS: Temperature 97.2, blood pressure 140/66, pulse 84, respirations 95% on 2 liters nasal cannula. REVIEW OF SYSTEMS: This well nourished female currently in no acute distress. She is not experiencing any shortness of breath or difficulty breathing. No chest pain, palpitations, diaphoresis. No nausea, vomiting, no diarrhea, constipation. No fever, chills, no recent inadvertent weight loss. PHYSICAL EXAMINATION: CHEST: Few scattered rales and rhonchi bilaterally. HEART: Regular. EXTREMITIES: +2 out of 3 bilateral lower extremity edema. Along the right lower extremity along the anterior and posterior hernandes are areas of what appears to be multiple bulla and overlying necrotic skin. There is a mild amount of erythema and redness, however, improved from previous. All 4 compartments are soft with a good distal perfusion. HEENT: No scleral icterus. No cervical lymphadenopathy. ABDOMEN: Soft, nontender, nondistended. LABS: WBC 9.2, hemoglobin 10.1, hematocrit 32, platelets 333. ASSESSMENT AND PLAN: 45-year-old female with cellulitis and skin necrosis of the right hernandes. This may be a superficial skin infection due to her history of obesity, as well as insulin-dependent diabetes. This also may represent an allergic reaction or vasculitis syndrome. Wound Care is proceeding with a biopsy of the area. For now, we will continue with IV antibiotics. If the devitalized tissue worsens, she may need debridement of the devitalized tissue as well as skin grafting. At this time, her compartments are soft and she does not have any signs of compartment syndrome with good distal perfusion. We will continue to monitor her progress. Job ID: [id number] Dictated Date: 04/15/2016 15:29:31 Loan Operations Specialist Date: 04/16/2016 10:05:08/major
[2016-04-16] MEDS: oxyCODONE/APAP 5/325MG (PERCOCET 5) TABLET PO PRN (10:25)
[2016-04-16 10:34] LABS: BASOPHILS % (AUTO) 0 % (0-10); EOSINOPHILS # (AUTO) 0.3 10^3/uL (0.0-0.3); EOSINOPHILS % (AUTO) 3 % (0-10); LYMPHOCYTES # (AUTO) 1.4 X 10^3 (1.0-4.0); LYMPHOCYTES % (AUTO) 16 % (12-44); MEAN CORPUSCULAR HEMOGLOBIN 27 PG (25-34); MEAN CORPUSCULAR HGB CONC 32 G/DL (32-36); MEAN CORPUSCULAR VOLUME 87 FL (80-99); MEAN PLATELET VOLUME 8.5 FL (7.4-10.4); MONOCYTES # (AUTO) 0.7 X 10^3 (0.0-1.0); MONOCYTES % (AUTO) 8 % (0-12); NEUTROPHILS # (AUTO) 6.3 X 10^3 (1.8-7.8); NEUTROPHILS % (AUTO) 73 % (42-75); PLATELET COUNT 372 10^3/uL (130-400); RED BLOOD COUNT 3.88 10^6/uL (4.35-5.85); RED CELL DISTRIBUTION WIDTH 15.9 % (10.0-14.5); WHITE BLOOD COUNT 8.7 10^3/uL (4.3-11.0)
--- NOTE | 2016-04-16 10:40 | Progress Note-Hospitalist ---
Progress Note HPI/CC on Admission CC: Severe cellulitis w/Pneumonia and sepsis HPI: This is a 45[address] of [address] Dunn'george that resides at [facility] was placed on antibiotic for cellulitis but presented to ER for worsening and fever. Pt has morbid obesity and hx of CVA with chronic disability so she was originally placed in the ICU due to severity of cellulitis but has since transferred to the floor. Progress Notes/Assess & Plan Date Seen 04/16/16 Admission Dx/Process Assessment: Severe cellulitis Suspected sepsis and pneumonia Hypoxia O2 of 68% Morbid obesity CRI HTN CVA hx Diagonsis/Assessment & Plan state director: RN did not give pt Benadryl yet. Pt was given a bath. Pt is on bed-rest now. Patient Interview: Pt states that she has severe itching all over. Pt thinks she received Benadryl , but it has not helped. Physical exam stable, reveals improved leg. AFVSS, Pleasant, improved, morbidly obese RRR, CTAB decrease bases Right leg much improved erythema Assessment: Severe cellulitis with possible compartment syndrome pursuing ultrasounds x- rays and surgical consultation s/p sepsis with pneumonia Hypoxia O2 of 68% on admit Morbid obesity CRI creat 1.5 HTN CVA hx GUERITA severe on CPAP urticaria of unknown source requiring Benadryl IV Plan: Poor prognosis considering her medical issues and morbid obesity Check labs Benadryl PT, if approved by Dr. Workman Scribed by Rashawn Deshpande under the direct supervision of Dr. Child. SHARLENE CHILD DO Apr 16, 2016 10:40
[2016-04-16 10:58] LABS: ALANINE AMINOTRANSFERASE 22 U/L (0-55); ALBUMIN 2.6 G/DL (3.2-4.5); ANION GAP 10 MMOL/L (5-14); ASPARTATE AMINO TRANSFERASE 22 U/L (5-34); BILIRUBIN,TOTAL 0.3 MG/DL (0.1-1.0); BLOOD UREA NITROGEN 23 MG/DL (7-18); BUN/CREATININE RATIO 26; CALCIUM 8.4 MG/DL (8.5-10.1); CARBON DIOXIDE 28 MMOL/L (21-32); CHLORIDE 102 MMOL/L (98-107); CREATININE SERUM 0.88 MG/DL (0.60-1.30); GFR ESTIMATED > 60; GLUCOSE 183 MG/DL (70-105); POTASSIUM 4.3 MMOL/L (3.6-5.0); SODIUM 140 MMOL/L (135-145)
--- NOTE | 2016-04-16 11:41 | Discharge Summary-Hospitalist ---
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 Pt was given a bath. Pt is on bed-rest now. Patient Interview: Pt states that she has severe itching all over. Pt thinks she received Benadryl , but it has not helped. Physical exam stable, reveals improved leg. AFVSS, Pleasant, improved, morbidly obese RRR, CTAB decrease bases Right leg much improved erythema Assessment: Severe cellulitis with possible compartment syndrome pursuing ultrasounds x- rays and surgical consultation s/p sepsis with pneumonia Hypoxia O2 of 68% on admit Morbid obesity CRI creat 1.5 HTN CVA hx GUERITA severe on CPAP urticaria of unknown source requiring Benadryl IV Plan: Poor prognosis considering her medical issues and morbid obesity Check labs Benadryl PT, if approved by Dr. Workman Scribed by Rashawn Deshpande under the direct supervision of Dr. Child. (1) Morbid obesity Status: Acute (2) Cellulitis of right lower extremity Status: Acute (3) Diabetes mellitus Status: Acute (4) Pneumonia Status: Acute Reason Hospital Visit/Course CC: Severe cellulitis w/Pneumonia and sepsis HPI: This is a 45[address] Dunn'george that resides at [facility] was placed on antibiotic for cellulitis but presented to ER for worsening and fever. Pt has morbid obesity and hx of CVA with chronic disability so she was originally placed in the ICU due to severity of cellulitis but has since transferred to the floor. 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 Pt was given a bath. Pt is on bed-rest now. Patient Interview: Pt states that she has severe itching all over. Pt thinks she received Benadryl , but it has not helped. Physical exam stable, reveals improved leg. AFVSS, Pleasant, improved, morbidly obese RRR, CTAB decrease bases Right leg much improved erythema Assessment: Severe cellulitis with possible compartment syndrome pursuing ultrasounds x- rays and surgical consultation s/p sepsis with pneumonia Hypoxia O2 of 68% on admit Morbid obesity CRI creat 1.5 HTN CVA hx GUERITA severe on CPAP urticaria of unknown source requiring Benadryl IV Plan: Poor prognosis considering her medical issues and morbid obesity Check labs Benadryl PT, if approved by Dr. Workman Scribed by Rashawn Deshpande under the direct supervision of Dr. Child. Hospital course: Patient had a lengthy hospital course the required aggressive IV antibiotics and oxygen supplementation for pneumonia with hypoxia 68 percent when she arrived. The morbid obesity has caused multiple medical problems including stroke with right-sided hemo-Jeanette is that was a factor involved with a severe cellulitis of the right leg that required aggressive wound care and IV antibiotics that will need to be continued on swing bed before discharged back to the halfway. Patient had difficulty coping and we try to support her in any way possible that she was maintain on broad-spectrum intensive antibiotics and Dr. Workman wound care followed along felt the patient at one point needed some sort of surgical debridement for compartment syndrome but that was ruled out by general surgery and ultrasound and x-rays. Overall she improved at the time of swing bed admission on 04/16/16 and overall having the potential of full resolution of this issue and she was deemed stable for swing bed status with wound care following and will monitor closely in the meantime. Discharge Summary Discharge Physical Examination Allergies: Coded Allergies: meperidine HCl (Verified Allergy, Severe, seizure, 02/14/16) fluticasone propionate (Verified Allergy, Intermediate, HIVES, 02/14/16) salmeterol xinafoate (Verified Allergy, Intermediate, HIVES, 02/14/16) ibuprofen (Unverified Allergy, Unknown, 02/14/16) levofloxacin (Verified Adverse Reaction, Unknown, 02/14/16) Vitals & I&Os Vital Signs Date Time Temp Pulse Resp B/P Pulse Ox O2 Delivery O2 Flow Rate FiO2 04/16/16 08:13 96.4 77 12 111/67 99 NIV/CPAP 2.00 Hospital Course Labs (last 24 hrs) Laboratory Tests 04/15/16 16:14: Glucometer 184H 04/15/16 20:43: Glucometer 214H 04/16/16 05:04: Glucometer 155H 04/16/16 10:26: Alanine Aminotransferase (ALT/SGPT) 22, Albumin 2.6L, Alkaline Phosphatase 157H , Anion Gap 10, Aspartate Amino Transf (AST/SGOT) 22, BUN/Creatinine Ratio 26, Basophils # (Auto) 0.0, Basophils (%) (Auto) 0, Blood Urea Nitrogen 23H, Calcium Level 8.4L, Carbon Dioxide Level 28, Chloride Level 102, Creatinine 0.88 , Eosinophils # (Auto) 0.3, Eosinophils (%) (Auto) 3, Estimat Glomerular Filtration Rate > 60, Glucose Level 183H, Hematocrit 34L, Hemoglobin 10.6L, Lymphocytes # (Auto) 1.4, Lymphocytes (%) (Auto) 16, Mean Corpuscular Hemoglobin 27, Mean Corpuscular Hemoglobin Concent 32, Mean Corpuscular Volume 87, Mean Platelet Volume 8.5, Monocytes # (Auto) 0.7, Monocytes (%) (Auto) 8, Neutrophils # (Auto) 6.3, Neutrophils (%) (Auto) 73, Platelet Count 372, Potassium Level 4.3, Red Blood Count 3.88L, Red Cell Distribution Width 15.9H, Sodium Level 140, Total Bilirubin 0.3, Total Protein 6.0L, White Blood Count 8.7 04/16/16 10:55: Glucometer 190H Microbiology 04/09/16 Blood Culture - Final, Complete No growth 04/09/16 MRSA Screen - Final, Complete 04/14/16 Gram Stain - Final, Resulted 04/14/16 Wound Culture - Preliminary, Resulted No growth Pending Labs Laboratory Tests 04/16/16 05:04: Glucometer 155 04/16/16 10:26: Alanine Aminotransferase (ALT/SGPT) 22, Albumin 2.6, Alkaline Phosphatase 157, Anion Gap 10, Aspartate Amino Transf (AST/SGOT) 22, BUN/Creatinine Ratio 26, Basophils # (Auto) 0.0, Basophils (%) (Auto) 0, Blood Urea Nitrogen 23, Calcium Level 8.4, Carbon Dioxide Level 28, Chloride Level 102, Creatinine 0.88, Eosinophils # (Auto) 0.3, Eosinophils (%) (Auto) 3, Estimat Glomerular Filtration Rate > 60, Glucose Level 183, Hematocrit 34, Hemoglobin 10.6, Lymphocytes # (Auto) 1.4, Lymphocytes (%) (Auto) 16, Mean Corpuscular Hemoglobin 27, Mean Corpuscular Hemoglobin Concent 32, Mean Corpuscular Volume 87, Mean Platelet Volume 8.5, Monocytes # (Auto) 0.7, Monocytes (%) (Auto) 8, Neutrophils # (Auto) 6.3, Neutrophils (%) (Auto) 73, Platelet Count 372, Potassium Level 4.3, Red Blood Count 3.88, Red Cell Distribution Width 15.9, Sodium Level 140, Total Bilirubin 0.3, Total Protein 6.0, White Blood Count 8.7 04/16/16 10:55: Glucometer 190 Discharge Home Medications: Active Scripts Active Reported Skin Protectant (Zinc Oxide) 113 Gm Cream..g. TP BID APPLY TO LEFT BUTTOCK, LEFT AND RIGHT THIGHS WHERE OPEN AREAS ARE LOCATED Xopenex Hfa (Levalbuterol Tartrate) 15 Gm Hfa.aer.ad 2 Puff IH BID Alprazolam 0.25 Mg Tablet 0.25 Mg PO Q6H PRN Bupropion Xl (Bupropion HCl) 150 Mg Tab.er.24h 300 Mg PO DAILY TAKES 2 (150MG) TABLETS Tradjenta (Linagliptin) 5 Mg Tablet 5 Mg PO DAILY Guaifenesin Dm Syrup (Guaifenesin/Dextromethorphan) 5 Ml Syrup 10 Ml PO Q4H PRN Oxycodone-Acetaminophen 5-325 (Oxycodone HCl/Acetaminophen) 1 Each Tablet 1-2 Tab PO EVERY 4-6 HOURS Oxycontin (Oxycodone HCl) 30 Mg Tab.er.12h 30 Mg PO BID Nystatin 15 Gm Cream..g. TP PRN PRN APPLY TO SKIN FOLDS Novolog Flexpen (Insulin Aspart) 300 Units/3 Ml Solution SC AC 151-200 = 6 UNITS 201-250 = 8 UNITS 251-300 = 10 UNITS 301-350 = 12 UNITS 351-400 = 14 UNITS CALL MD FOR SUGAR UNDER 60 AND OVER 400 Amlodipine Besylate 5 Mg Tablet 5 Mg PO DAILY Multivitamins with Minerals (Multivitamin with Minerals) 1 Each Tablet 1 Tab PO DAILY [Mucinex Allergy] 180 Mg PO Q12H PRN ACTIVE INGREDIENT FEXOFENADINE 180MG Metformin HCl 1,000 Mg Tablet 1,000 Mg PO BID Atorvastatin Calcium 20 Mg Tablet 20 Mg PO DAILY Levothyroxine Sodium 125 Mcg Tablet 250 Mcg PO DAILY TAKES 2 (125MCG) TABLETS Levemir Flextouch (Insulin Detemir) 100 Unit/1 Ml Insuln.pen 19 Units SC HS Furosemide 80 Mg Tablet 80 Mg PO DAILY Furosemide 80 Mg Tablet 80 Mg PO DAILY PRN MAY GIVE PRN DAILY IN ADDITION TO SCHEDULED DOSE Gabapentin 600 Mg Tablet 600 Mg PO TID Fluticasone Propionate 16 Gm Wendell.susp 1 Wendell NS DAILY Doxycycline Hyclate 100 Mg Capsule 100 Mg PO BID 10 Days 10 DAY THERAPY START DATE 04-08-16 Cranberry Tablet (Cranberry Conc/C/Bacill Coag) 1 Each Tablet 1 Tab PO TID Colace (Docusate Sodium) 100 Mg Capsule 100 Mg PO Q12H PRN Albuterol Sulfate 2.5 Mg/3 Ml Vial.neb 2.5 Mg NEB Q2H PRN Acidophilus (Lactobacillus Acidophilus) 1 Each Tablet 2 Tab PO QID Gluco Burst (Dextrose) 37.5 Gm Gel..gram. 15 Gm PO UD PRN GIVE ONE PACKET FOR HYPOGLYCEMIA AND TAKE BS IN 15 MIN, IF NOT RISING GIVE ANOTHER PACKET AND RE-TAKE BS IN 15 MIN, IF NO CHANGE IN BS OR LOC GIVE IM GLUCAGON AND NOTIFY Calcium 600 + Vit D 400 Tablet (Calcium Carbonate/Vitamin D3) 1 Each Tablet 1 Tab PO BID Glucagen (Glucagon,Human Recombinant) 1 Mg/1 Ml Vial 1 Mg IM UD PRN Fish Oil 1,000 Mg Cap 1,000 Mg PO TID Elsie Allergy (Fexofenadine Hcl) 180 Mg Tablet 180 Mg PO DAILY Flexeril Tablet (Cyclobenzaprine Hcl) 10 Mg Tablet 10 Mg PO TID Montelukast Sodium 10 Mg Tablet 10 Mg PO HS Clopidogrel (Clopidogrel Bisulfate) 75 Mg Tablet 75 Mg PO DAILY Ecotrin (Aspirin) 325 Mg Tablet.dr 325 Mg PO DAILY Vitamin C 500 Mg (Ascorbic Acid) 500 Mg Tablet 500 Mg PO DAILY Instructions to patient/family Please see electonic discharge instructions given to patient. Clinical Quality Measures DVT/VTE Risk/Contraindication: Risk Factor Score Per Nursin RFS Level Per Nursing on Admit: 4+=Very High SHARLENE CHILD DO Apr 16, 2016 11:41
== END 2016-04-16 11:42 | disposition swing bed (61) | DRG 871 ==
LOC: EDUNIT# 21:45 → ER 21:46 → ICU 23:45 → 4TH 04-09 10:48
PROVIDERS: ADMIT Internal Medicine; ATTEND Internal Medicine
DX: A41.9 Sepsis, unspecified organism (principal); L03.115 Cellulitis of right lower limb; L03.031 Cellulitis of right toe; J44.0 Chronic obstructive pulmonary disease with (acute) lower respiratory infection; J18.9 Pneumonia, unspecified organism; N17.9 Acute kidney failure, unspecified; I69.351 Hemiplegia and hemiparesis following cerebral infarction affecting right dominant side; Z68.43 Body mass index [BMI] 50.0-59.9, adult; Z66 Do not resuscitate; R09.02 Hypoxemia; G47.33 Obstructive sleep apnea (adult) (pediatric); I13.0 Hypertensive heart and chronic kidney disease with heart failure and stage 1 through stage 4 chronic kidney disease, or unspecified chronic kidney disease; I50.9 Heart failure, unspecified; E66.01 Morbid (severe) obesity due to excess calories; E11.9 Type 2 diabetes mellitus without complications; F32.9 Major depressive disorder, single episode, unspecified; Z79.4 Long term (current) use of insulin; N18.9 Chronic kidney disease, unspecified; B95.62 Methicillin resistant Staphylococcus aureus infection as the cause of diseases classified elsewhere; L50.9 Urticaria, unspecified
CPT/HCPCS: 36415; 71010; 73120; 73590; 80053; 80202; 81000; 82805; 82962; 83605; 83735; 83880; 84100; 84484; 84550; 85007; 85025; 85027; 85610; 85730; 87040; 87070; 87077; 87081; 87205; 87804; 93005; 93041; 93926; 93970; 94640; 94760; 96365; 96366; 96375

== ENCOUNTER 2016-04-16 10:59 | Inpatient (IN) | payer MEDICARE, MEDICAID ==
[~2016-04-16] VITALS: Ht 180.3 cm; Wt 179.6 kg
[~2016-04-16 10:59] MED LIST changes: +ALBU2.5V4 NEB; +ALPR0.254 PO; +AMLO5TAB2 PO; +ATOR20TA66 PO; +BUPR150T7 PO; +CALC1TAB94 PO; +CRAN1TAB5 PO; +DEXT37.54 PO; +DOCU-143 PO; +DOXY100C2 PO; +FLUT16SP22 NS; +FURO80TA3 PO; +GABA600T2 PO; +GUAI5SYR PO; +INSU100I14 SC; +INSU100I29 SC; +LACT1TAB9 PO; +LEVO125T6 PO; +LINA5TAB PO; +METF1000 PO; +MULT-166 PO; +NF-XOP-HFA IH; +NYST15CR TP; +OXYC-471 PO; +OXYC30TA77 PO; +ZINC113C8 TP; +[UNRECOGNIZED DRUG - REMARK] PO
[2016-04-16] MEDS ORDERED: ACETAMINOPHEN 325 MG TABLET/CAPLET (TYLENOL) PO PRN (11:45)
[2016-04-16] MEDS ORDERED: LORazepam INJ 2 MG/ML (ATIVAN) VIAL IVP PRN (11:45)
[2016-04-16] MEDS ORDERED: CATHETER FLUSH 10 ML SYR IV PRN (11:45)
[2016-04-16] MEDS ORDERED: fentaNYL INJECTION 100 MCG/2 ML AMP IVP PRN (11:45)
[2016-04-16] MEDS ORDERED: ONDANSETRON 4 MG/2 ML (SDV) Z0FRAN IVP PRN (11:45)
[2016-04-16] MEDS ORDERED: RT-ALBUTEROL SULF 2.5 MG/3 ML PRE-MIX VIAL INH PRN (13:15)
--- NOTE | 2016-04-16 13:41 | Occupational Therapy Eval ---
OT Evaluation-General/PLF Medical Diagnosis Admission Date Apr 16, 2016 at 11:42 Medical Diagnosis: Cellulitis right LE Onset Date: Apr 08, 2016 Therapy Diagnosis Therapy Diagnosis: Weakness, Decreased ADL skills Height/Weight Height (Feet): 5 Height (Inches): 11.00 Weight (Pounds): 396 Weight (Ounces): 6.0 Weight Bear Status Weight Bearing Restriction: Weight Bearing/Tolerated Referral Physician: Dr. Flores Referral Reason: Activity Tolerance, Self Care, Evaluation/Treatment, Strengthening/ROM Medical History Pertinent Medical History: COPD, CVA, HTN Additional Medical History CVA x 4, right sided paralysis, sleep apnea, UTI, Left ankle fx with ORIF, wrist fx, DM, depression Current History Pt. resides at [place]. Has for approximately 3 years. Began having worsening pain in right LE. Utilizes a manual chair and quad cane for mobility in [place]. Reviewed History: Yes Social History Home: Residential Entry Into Home: Level Entry ADL-Prior Level of Function ADL PLOF Comments Pt. states that she was able to shower self. States that she has not been able to toilet self for a long time due to being unable to reach backside. States that she does not wear socks, footwear, or pants in the half-way. States that she dons large dresses over her head. Pt. is able to take herself around the half-way, and has no trouble feeding self or grooming. Drive Self: No OT Current Status Subjective Pt. did not report pain level to this therapist. Appearance Pt. sitting on side of bed with PT when OT entered room. Pt. required min assist x 2 for sit-stand. Noted right hand in closed fist due to paralysis. Facilitated hand grasp on platform walker. Sat back down. Required mod assist x 2 for sit-supine. All needs met in bed. Mental Status/Objective Patient Orientation: Person, Place Current Hand Dominance: Left Upper Extremity ROM Pt. has no functional movement in right UE. Demonstrates full ROM in left UE. Upper Extremity Coordination Left- intact ADL-Treatment Functional [place] Measure 0=Not Assessed/NA 4=Minimal Assistance 1=Total Assistance 5=Supervision or Setup 2=Maximal Assistance 6=Modified [place] 3=Moderate Assistance 7=Complete IndependenceIRFPAI Quality Coding Scale 6 Independent with activity with or without an assistive device 5 Patient requires set up or clean up by helper. Patient completes activity by themselves 4 Supervision or touching assist (CGA). [place] provide cues , steadying assist 3 The helper provides less than half the effort to complete the activity 2 The helper provides more than half the effort to complete the activity 1 Dependent. The helper does all the effort to complete an activity 7 Patient refused to complete or attempt activity 9 The patient did not perform the activity before the current illness or injury 88 Not attempted due to Medical conditions or safety concerns Lower Body Dressing (FIM): 1 (For socks.) Noted no functional movement in right UE. Pt. states that she did used to be right handed, but now is left handed. Is able to feed self with left hand. Pt. unable to reach feet and states that she did not wear any type of socks or footwear in [place]. States that she propels herself around barefoot in her manual wheelchair. OT and PT co-treated due to possible need for skilled support. PT instructed pt. on functional transfers, mobility, and equipment use with standing while OT addressed ADL goals and UE assessment. Education OT Patient Education: Modified ADL techniques, Progress toward Goal/Update tx plan, Purpose of tx/functional activities, Reviewed precautions, Rehab process, Transfer techniques Teaching Recipient: Patient Teaching Methods: Demonstration, Discussion Response to Teaching: Verbalize Understanding, Return Demonstration OT Short Term Goals Short Term Goals Time Frame: Apr 30, 2016 Eating(FIM): 5 Grooming(FIM): 5 Bathing(FIM): 3 Upper Body Dressing(FIM): 4 Transfers (B,C,W/C) (FIM): 3 Additional Short Term Goals: 1-Demonstrate ADL Tasks, 2-Verbalize Understanding , 3-ImproveStrength/Kia 1=Demonstrate adherence to instructed precautions during ADL tasks. 2=Patient will verbalize/demonstrate understanding of assistive devices/ modifications for ADL. 3=Patient will improve strength/tolerance for activity to enable patient to perform ADL's. OT Media Monitor Goals Chcf Goals Time Frame: May 14, 2016 Eating (FIM): 7 Eating (QC): 6 Groomin Oral Hygiene (QC): 5 Bathing(FIM): 4 Upper Body Dressing(FIM): 6 Transfers (B,C,W/C) (FIM): 5 Toilet/Commode Transfer(FIM): 5 Toilet/Commode Transfer (QC): 5 Additional Goals: 1-Demonstrate ADL Tasks, 2-Verbalize Understanding, 3- ImproveStrength/Kia 1=Demonstrate adherence to instructed precautions during ADL tasks. 2=Patient will verbalize/demonstrate understanding of assistive devices/ modifications for ADL. 3=Patient will improve strength/tolerance for activity to enable patient to perform ADL's. OT Education/Plan Problem List/Assessment Assessment: Decreased Activ Tolerance, Decreased UE Strength, Dependent Transfers, Impaired Bed Mobility, Impaired Funct Balance, Impaired I ADL's, Impaired Self-Care Skills, Restricted Funct UE ROM Discharge Recommendations Plan/Recommendations: Continue POC Therapy D/C Recommendations: Retirement (TCU/NH) Target Placement Pt. plans to return to [place]way, where she has lived for past 3 years. Treatment Plan/Plan of Care Treatment,Training & Education: Yes Patient would benefit from OT for education, treatment and training to promote independence in ADL's, mobility, safety and/or upper extremity function for ADL' s. Plan of Care: ADL Retraining, Functional Mobility, UE Funct Exercise/Act Treatment Duration: May 14, 2016 # of days/week 5-6 Visits Per Week: 5-6 Agreement: Yes Rehab Potential: Fair Time/GCodes Start Time: 13:15 Stop Time: 13:30 Total Time Billed (hr/min): 15 Billed Treatment Time 1, TORSTEN Varela OT Apr 16, 2016 13:40
[2016-04-16] MEDS: GABAPENTIN 600 MG (NEURONTIN) TAB PO SCH ×2 (13:51→21:25)
[2016-04-16] MEDS: diphenhydrAMINE 50 MG/ML INJ (BENADRYL) IVP PRN (13:52)
[2016-04-16] MEDS: CYCLOBENZAPRINE 10 MG (FLEXERIL) TAB PO SCH ×2 (13:52→21:25)
[2016-04-16] MEDS: oxyCODONE/APAP 5/325MG (PERCOCET 5) TABLET PO PRN (13:55)
--- NOTE | 2016-04-16 14:48 | Physical Therapy Evaluation ---
PT Evaluation-General Medical Diagnosis Admission Date Apr 16, 2016 at 11:42 Medical Diagnosis: Cellulitis right LE Onset Date: Apr 08, 2016 Therapy Diagnosis Therapy Diagnosis: weakness; abn gait Height/Weight Height (Feet): 5 Height (Inches): 11.00 Weight (Pounds): 396 Weight (Ounces): 6.0 Precautions Precautions/Isolations: Contact Isolation Weight Bear Status Weight Bearing Restriction: Weight Bearing/Tolerated Referral Physician: Dr. Flores Reason for Referral: Evaluation/Treatment Medical History Pertinent Medical History: COPD, CVA, HTN Additional Medical History morbid obesity, frequent UTI Current History Pt admitted with cellulitis R LE; transferred to swing bed for medical management and progressive therapy services. Reviewed History: Yes Social History Home: [place]way Entry Into Home: Level Entry Prior/Core FIM Prior Level of Function Functional [place] Measure 0=Not Assessed/NA 4=Minimal Assistance 1=Total Assistance 5=Supervision or Setup 2=Maximal Assistance 6=Modified [place] 3=Moderate Assistance 7=Complete [place] Bed Mobility: 6 Transfers (B,C,W/C) (FIM): 6 Pt reports she was able to get in/out of bed and ambulate in room distances at the nursing facility using a quad cane; reports she is able to propel and manual wheelchair facility distances using her left U/LE. PT Evaluation-Current Subjective Agrees to PT. Initially, she is apprehensive about getting up and trying to stand but is agreeable. Objective Patient Orientation: Person, Place, Time, Situation Problem Solving: Fair Slow to respond at times. ROM/Strength ROM Lower Extremities LE is limited by excessive adipose tissue but motion is functional; left LE is AROM but the right is PROM. Strenght Lower Extremities L LE strength is grossly 4-/5; right strength not tested, most movement is performed with tone and compensation. Integumentary/Posture Integumentary Refer to nursing notes; multiple sites right LE of open area due to cellulitis. Bowel Incontinence: No Bladder Incontinence: [place] Cath Posture In standing, normal and symmetrical. Neuromuscular (Tone, Coordination, Reflexes) Increased extensor tone right LE. Sensory Vision: Functional Hearing: Functional Hand Dominance: Right (CVA impaired so uses left now) Sensation Right Lower Extremit: Impaired Sensation Left Lower Extremity: Intact Transfers Functional [place] Measure 0=Not Assessed/NA 4=Minimal Assistance 1=Total Assistance 5=Supervision or Setup 2=Maximal Assistance 6=Modified [place] 3=Moderate Assistance 7=Complete [place] Transfers (B, C, W/C) (FIM): 3 Scootin Rollin Supine to/from Sit: 3 (asssit with both legs to lift out of bed) Sit to/from Stand: 3 (min assist of 2 to stand. ) bed t/f WC(FIM only if WC use): 88 (unsafe to attempt) Sit to Lying (QC): 3 (asssit with both legs) Lying to Sitting/Side of Bed(Q: 3 Sit to Stand (QC): 3 Chair/[id number]-Kzbaq Xfer(QC): 88 (unsafe to attempt) Assist with both legs with bed mobility; needed min assist of 2 to stand but able to maintain with CGA; sidestepping left 3-4 steps with FWW with platform with min assist. Gait Does the Patient Walk?: Yes Mode of Locomotion: Both Anticipated Mode of Locomotion: Both Gait (FIM): 0 (NT) Walk 50 ft with 2 Turns(QC): 88 Walk 150 ft (QC): 88 Comments/Gait Description Unable to ambulate at this time. Wheelchair Training Does the Pt Use a Wheelchair?: Yes Wheelchair (FIM): 88 (NT this visit) Wheel 50 ft with 2 turns (QC): 88 Wheel 150 ft (QC): 88 Balance Sitting Static: Good Sitting Dynamic: Fair Standing Static: Fair Standing Dynamic: Fair Treatment Sat EOB several minutes with SBA; sit to stand and sidestepping. Spent time educating on purpose of PT and what to expect. Assessment/Needs Pt presents with a decline in functional mobility and strength due to cellulitis /infection right LE and acute hospitalization. Strength, balance, gait, funcitonal transfers and functional activity tolerance are all impaired. She has comorbidities that include hx of CVA, morbid obesity, LE cellulitis, right sided weakness, HTn and her presentation is unstable in the fact that the cellulitis seems to be continued with concern for compartment syndrome noted by physician. She will benefit from skilled PT intervention to work on functional strength and mobility to allow her to return to functional ambulation in her room at her residence. Rehab Potential: Guarded Post Rehab Potential-Barriers: morbid obesity; hx of CVA PT Short Term Goals Short Term Goals Time Frame: Apr 23, 2016 Transfers (B,C,W/C) (FIM): 4 Gait (FIM): 2 Distance (FIM): 1=up to 49 ft Gait Distance Comment: 25 ft Gait Assistive Device: Cane Large Base Quad PT Sand Worker Goals Sand Worker Goals PT Sand Worker Goals Time Frame: May 01, 2016 Transfers (B,C,W/C) (FIM): 5 Sit to Lying (QC): 5 Lying-Sitting on Side/Bed(QC): 5 Sit to Stand (QC): 5 Chair/[id number]-Rxqof Xfer(QC): 5 Does the Patient Walk: Yes Gait (FIM): 4 Distance: 50 Walk 50ft with 2 Turns (QC): 4 Walk 150 ft (QC): 88 Gait Level of Assist: 4 (CGA) Gait Assistive Device: Walker 4 Wheeled Does the Pt use WC or Scooter?: Yes Wheelchair (FIM): 4 Wheelchair distance (FIM): 3=150 ft Wheel 50 feet with 2 turns (QC: 4 Stairs (FIM): 88 PT Plan Problem List Problem List: Activity Tolerance, Functional Strength, Safety, Balance, Gait, Transfer, Bed Mobility Treatment/Plan Treatment Plan: Continue Plan of Care Treatment Plan: Bed Mobility, Education, Functional Activity Kia, Functional Strength, Gait, Safety, Therapeutic Exercise, Transfers Treatment Duration: May 01, 2016 # of days/week 5-6 Visits Per Week: 5-6 Minutes/Day (M-F): 20-30 Minutes/Day (Sat/[place]): prn Pt/Family Agrees w/Plan: Yes Safety Risks/Education Patient Education: Safety Issues Teaching Recipient: Patient Teaching Methods: Demonstration, Discussion Response to Teaching: Reinforcement Needed Time/GCodes Time In: 1300 Time Out: 1335 Total Billed Treatment Time: 35 Total Billed Treatment visit EV 15 FA 20 PAULA MAGANA PT Apr 16, 2016 14:48
[2016-04-16] MEDS: RT-ALBUTEROL SULF 2.5 MG/3 ML PRE-MIX VIAL INH SCH ×2 (15:09→20:55)
[2016-04-16] MEDS: LACTOBACILLUS Acidoph/Bulgar (LACTINEX/FLORANEX) TAB PO SCH (15:53)
[2016-04-16] MEDS: CATHETER FLUSH 10 ML SYR IV SCH ×2 (15:53→22:22)
[2016-04-16] MEDS: ENOXAPARIN 40 MG/0.4 ML (LOVENOX) SYR SC SCH (15:53)
--- NOTE | 2016-04-16 17:20 | Wound Care Progress Note ---
Subjective Subjective Subjective/Events-last exam 45 year old female with aggressive cellulitis of R calf and thigh, improved with IV Vancomycin and elevation. Will hold off on tissue biopsy. PMFSH: no interval change. Review of Systems General: No Chills Pulmonary: No Dyspnea Cardiovascular: No: Chest Pain Gastrointestinal: No: Abdominal Pain Objective Exam Last Set of Vital Signs Vital Signs Date Time Temp Pulse Resp B/P Pulse Ox O2 Delivery O2 Flow Rate FiO2 04/16/16 15:10 98 2.00 Capillary Refill : General: Alert, No Acute Distress HEENT: Atraumatic Neck: Supple Lungs: Normal Air Movement Abdomen: Soft Skin: Other (R calf with less edema and erythema.) Results Lab Laboratory Tests 04/16/16 16:43: Glucometer 192H Culture of blister fluid R calf shows no growth Radiology Arterial and venous studies were non-diagnostic. X-rays showed no tissue gas. Assessment/Plan Assessment/Plan Assessment/Plan 1. Severe cellulitis, R calf and thigh, improving on current treatment. 2. Morbid obesity. 3. Stroke with R sided paralysis. Plan: Observe, consider transition to oral antibiotics, as per Pharm PRISCILLA STALLINGS MD Apr 16, 2016 17:19
[2016-04-16 17:52] VITALS: BP 119/71
--- NOTE | 2016-04-16 18:19 | Progress Note (SOAP) ---
Subjective Subjective/Events-last exam doing ok. cellulitis and bullae appear to be improving. no systemic symptoms. Objective Exam Vital Signs Date Time Temp Pulse Resp B/P Pulse Ox O2 Delivery O2 Flow Rate FiO2 04/16/16 15:10 98 2.00 Capillary Refill : General Appearance: No Apparent Distress HEENT: PERRL/EOMI Neck: Full Range of Motion Respiratory: Chest Non Tender Normal Breath Sounds Cardiovascular: Regular Rate, Rhythm Peripheral Pulses: 1+ Dorsalis Pedis (R), 1+ Left Dors-Pedis (L) Gastrointestinal: normal bowel sounds non tender soft Extremity: Normal Capillary Refill Swelling Other (decrease redness/erythema right leg) Neurologic/Psychiatric: Alert Oriented x3 Skin: Normal Color Lymphatic: No Adenopathy Results Lab Laboratory Tests 04/16/16 16:43: Glucometer 192H Assessment/Plan Assessment/Plan Assess & Plan/Chief Complaint cellulitis, mild superficial necrosis right leg. continue IV abx and conservative treatment. cont ARU Diagnosis/Problems: EDI ORTEGA MD Apr 16, 2016 18:18
[2016-04-16] MEDS: oxyCODONE ER 15 MG (oxyCONTIN CR) TAB PO SCH (21:25)
[2016-04-16] MEDS: FAMOTIDINE 20MG/2ML IV (PEPCID) IVP SCH (21:25)
[2016-04-16] MEDS: MONTELUKAST 10 MG (SINGULAIR) TAB PO SCH (21:25)
[2016-04-16] MEDS: inSUlin DETERMIR 1 UNIT/0.01 ML (LEVEMIR) CHARGE PER UNIT SQ SCH (21:25)
[2016-04-16] MEDS: inSUlin ASPART (NovoLOG) 1 UNIT/0.01 ML (CHARGE PER UNIT) SC SCH ×2 (21:26→21:30)
[2016-04-16] MEDS: MICONAZOLE 2% POWDER (DESENEX AF) 90 GM TOP SCH (21:30)
[2016-04-16] MEDS: MUPIROCIN 2% OINT 22 GM (BACTROBAN) TUBE NSEACH SCH (21:30)
[2016-04-17] MEDS: LEVOTHYROXINE 125 MCG (LEVOTHROID) TABLET PO SCH (06:34)
[2016-04-17] MEDS: CATHETER FLUSH 10 ML SYR IV SCH ×3 (06:34→23:01)
[2016-04-17] MEDS: LACTOBACILLUS Acidoph/Bulgar (LACTINEX/FLORANEX) TAB PO SCH ×3 (06:34→16:48)
[2016-04-17] MEDS: inSUlin ASPART (NovoLOG) 1 UNIT/0.01 ML (CHARGE PER UNIT) SC SCH ×4 (06:38→23:03)
[2016-04-17] MEDS ORDERED: TROUGH ORDER-PHARMACY XX ONE (07:00)
[2016-04-17 08:00] VITALS: BP 135/53
[2016-04-17] MEDS: RT-ALBUTEROL SULF 2.5 MG/3 ML PRE-MIX VIAL INH SCH ×3 (08:01→19:05)
[2016-04-17] MEDS: MUPIROCIN 2% OINT 22 GM (BACTROBAN) TUBE NSEACH SCH ×2 (09:24→22:59)
[2016-04-17] MEDS: FUROSEMIDE 40 MG (LASIX) TAB PO SCH (09:25)
[2016-04-17] MEDS: FAMOTIDINE 20MG/2ML IV (PEPCID) IVP SCH (09:25)
[2016-04-17] MEDS: GABAPENTIN 600 MG (NEURONTIN) TAB PO SCH ×3 (09:25→23:00)
[2016-04-17] MEDS: CYCLOBENZAPRINE 10 MG (FLEXERIL) TAB PO SCH ×3 (09:25→23:00)
[2016-04-17] MEDS: VANCOMYCIN INJECTION 1,500 MG in NS IV 500 ML 500 ML IV SCH (09:25)
[2016-04-17] MEDS: oxyCODONE/APAP 5/325MG (PERCOCET 5) TABLET PO PRN (09:25)
[2016-04-17] MEDS: oxyCODONE ER 15 MG (oxyCONTIN CR) TAB PO SCH ×2 (09:26→23:00)
[2016-04-17] MEDS: inSUlin DETERMIR 1 UNIT/0.01 ML (LEVEMIR) CHARGE PER UNIT SQ SCH ×2 (09:27→23:01)
[2016-04-17] MEDS: amLODIPine 5 MG (NORVASC) TAB PO SCH (09:27)
[2016-04-17] MEDS: diphenhydrAMINE 50 MG/ML INJ (BENADRYL) IVP PRN ×2 (09:28→13:31)
[2016-04-17] MEDS: MICONAZOLE 2% POWDER (DESENEX AF) 90 GM TOP SCH ×2 (09:58→23:02)
[2016-04-17] MEDS: POLYETHYLENE GLYCOL 17 GM (MIRALAX) PACK PO SCH (09:58)
--- NOTE | 2016-04-17 10:16 | Progress Note-Hospitalist ---
Progress Note Progress Notes/Assess & Plan Date Seen 04/17/16 Diagonsis/Assessment & Plan Patient Interview: Pt states that she is still itching. Physical exam reveals leg continuing to improve. Pt has begun to ambulate in her room. no fever, vital stable, pleasant, much improved but still difficulty with coping which is a chronic issue Regular rate and rhythm, clear to auscultation bilaterally Right leg erythema much improved with now resolving vesicles that have ruptured and erythema is resolving steadily and the leg is not warm to touch Assessment: Severe right lower leg cellulitis status post vesical rupture maintained on broad-spectrum aggressive antibiotics due to high risk for requiring amputation Severe obesity Obstructive sleep apnea maintain on C Pap Diabetes mellitus Hypertension Plan: Remain at [facility] through weekend on IV antibiotics. monitor closely Scribed by Rashawn Deshpande under the direct supervision of Dr. Flores. SHARLENE FLORES DO Apr 17, 2016 10:16
--- NOTE | 2016-04-17 10:30 | Progress Note (SOAP) ---
Subjective Subjective/Events-last exam doing ok. no new complaints. no systemic symptoms. Objective Exam Vital Signs Date Time Temp Pulse Resp B/P Pulse Ox O2 Delivery O2 Flow Rate FiO2 04/17/16 08:01 93 2.00 04/17/16 08:00 97.5 80 20 135/53 93 Room Air 04/16/16 20:55 97 2.00 04/16/16 20:40 97 Nasal Cannula 2.00 04/16/16 17:52 97.5 86 14 119/71 97 04/16/16 15:10 98 2.00 I & O 04/17/16 07:00 Intake Total 890 ml Output Total 1875 ml Balance -985 ml Capillary Refill : General Appearance: No Apparent Distress HEENT: PERRL/EOMI Neck: Full Range of Motion Respiratory: Normal Breath Sounds Cardiovascular: Regular Rate, Rhythm Gastrointestinal: normal bowel sounds non tender soft Extremity: Normal Capillary Refill Pedal Edema Other (no new area erythema, bulla tuning into day skin necrosis, no crepitance.) Neurologic/Psychiatric: Alert Oriented x3 Skin: Normal Color Lymphatic: No Adenopathy Results Lab Laboratory Tests 04/16/16 16:43: Glucometer 192H 04/16/16 20:10: Glucometer 286H 04/17/16 05:59: Glucometer 188H 04/17/16 07:24: Vancomycin Level Trough 14.8 Assessment/Plan Assessment/Plan Assess & Plan/Chief Complaint cellulitis, mild superficial necrosis right leg. bullae now turning into dry eschar. no crepitance or signs necrotizing soft tissue infection or compartment sydrome. continue IV abx and conservative treatment. may need debridement at some time. cont EDI STEPHENS MD Apr 17, 2016 10:30
--- NOTE | 2016-04-17 11:20 | ST Dysphagia Evaluation ---
Speech Evaluation-General Medical Diagnosis Cellulitis right LE Onset Date: Apr 08, 2016 Therapy Diagnosis Therapy Diagnosis: Functional Oropharyngeal Swallow Precautions Precautions/Isolations: Standard Precautions Referral Referring Physician: Dr. Hermelinda Flores Reason for Referral: Evaluation/Treatment Clinical Bedside Swallowing Evaluation Medical History Pertinent Medical History: COPD, CVA, HTN Reviewed History: Yes Speech PLF/Current-Dysphagia Prior Level of Function The patient denied challenges with swallowing prior to or throughout her admission. The patient reports consuming a regular diet with thin liquids at home. Subjective The patient was recently admitted to [facility] with a diagnosis of right lower leg cellulitis. The patient greeted the clinician appropriately and agreed to participate in the dysphagia evaluation on this date. CXR: 04/16/2016: Continued improving patchy bilateral pulmonary opacities. Cognitive Status Patient Orientation: Person, Confused Oral Motor Skills Dentition: Natural Current Food Consistancy: Regular, Thin Liquids Ability to Follow Directions: Good Oral Expression Ability: Mild Impairment Voice Voice Phonatory-Based Quality: Normal Voice Pitch: Normal Voice Loudness: Normal Face Facial Symmetry: Asymmetrical (Right facial droop) Oral-Facial Assessment Oral-Facial Dentition: Normal Labial Seal Description: Droops Right Smile: Droops Right Puff Cheeks: Reduced Strength (Right.) Lingual Protrusion: Abnormal (Right lingual tip deviation.) Lingual ROM: Abnormal (Reduced right sided range of motion (lateral). ) Lingual Strength: Abnormal (Reduced right sided lingual strength.) Volitional Dry Swallow: Yes Dysphagia Evaluation Consistencies Presented: Regular, Thin Liquid (Via straw) 1. No oral impairments were noted throughout the assessment. 1. No pharyngeal impairments were noted throughout the assessment. - No signs/symptoms of aspiration or laryngeal penetration were demonstrated with thin liquids (via straw) or solid consistencies tested. The patient's vocal quality remained clear throughout the evaluation. Dietary Recommendations: Regular Liquid Recommendations: Thin Swallowing Precautions: Small Bites and Sips, Sitting Upright 90 Degrees Dysphagia Evaluation Summary The patient presented with an oropharyngeal swallow function within normal limits. Speech-Plan Treatment Plan Speech Therapy Treatment Plan: Discontinue ST Evaluation, only. Rehab Potential: Guarded Safety Risks/Education Teaching Recipient: Patient Teaching Methods: Discussion Response to Teaching: Verbalize Understanding Education Topics Provided: Results, recommendations, signs/symptoms of aspiration, swallowing strategies Time Speech Therapy Time In: 10:00 Speech Therapy Time Out: 10:15 Total Billed Time: 15 Billed Treatment Time 1, DYSEVS ALEXA,JOAN ST Apr 17, 2016 11:20
--- NOTE | 2016-04-17 11:27 | ST Cognitive Linguistic Eval ---
Speech Evaluation-General Medical Diagnosis Cellulitis right LE Onset Date: Apr 08, 2016 Therapy Diagnosis Therapy Diagnosis: Moderate to Severe Cognitive Impairment Precautions Precautions/Isolations: Standard Precautions Referral Referring Physician: Dr. Hermelinda Flores Reason for Referral: Evaluation/Treatment Cognitive Evaluation Medical History Pertinent Medical History: COPD, CVA, HTN Reviewed History: Yes Speech PLF-Current Status Prior Level of Function The patient denied recent challenges or changes with her cognitive status. Subjective The patient was recently admitted to [facility] with a diagnosis of right leg cellulitis. The patient greeted the clinician appropriately and agreed to participate in the cognitive evaluation on this date. Language Eval: Auditory Comprehends Simple Yes/No Ques: Moderate (The patient was able to provide accurate responses to simple yes/no questions, however, was unable to provide accurate answers to complex yes/no questions.) Indent/Objects Multiple Bob: Functional Ident/Pics in Multiple Bob: Moderate (The patient could identify one of three black and white photographs provided by the clinician.) Follows 1-Step Commands: Mild (Repetition intermittently required for accuracy. ) Follows Complex Directions: Moderate Follows General Conversations: Moderate Language Eval: Verbal Language Completes Spontaneous Greeting: Functional Produces Auto, Serial Info: Moderate Imitates Simple Words/Phrases: Severe (The patient was unable to repeat single words or short phrases.) Word Finding: Severe Requests Basic Needs: Moderate States Basic Personal Info: Moderate Expresses Complex Ideas: Moderate Objective Cognitive Domain Attention: Moderate Memory: Severe Problem Solving: Moderate Objective Oral Motor/Speech Production The patient demonstrated slightly imprecise articulation secondary to the present right facial droop, reduced lingual strength (right), and reduced labial strength (right). The patient remained 100% intelligible in known and unknown contexts. Impression The patient demonstrated a moderate to severe cognitive impairment in the areas of memory (immediate and delayed recall), executive functioning, attention, and language. The patient demonstrated a score of +5/25 on the MoCA. Speech Short Term Goals Short Term Goals Short Term Goals 1. The patient will recall and demonstrate two functional memory strategies for use at home. 2. The patient will accurately sequence simple events contained within his environment. 3. The patient will demonstrate 90% accuracy with basic safety problem solving. Time Frame-STG: Two Weeks Speech Residential Goals Insurance Follow Up Representative Goals 1. The patient will demonstrate improved cognitive linguistic skills for increased function and safety with ADL's in the least restrictive setting. Time Frame: Four Weeks Speech-Plan Treatment Plan Speech Therapy Treatment Plan: Continue Plan of Care Continue skilled speech services to target functional problem solving and memory strategies. Treatment Duration: May 15, 2016 # of days/week One to three Visits Per Week: One to three Minutes/Day (M-F): 20 Rehab Potential: Guarded Safety Risks/Education Teaching Recipient: Patient Teaching Methods: Discussion Response to Teaching: Verbalize Understanding, Reinforcement Needed Education Topics Provided: Results, Plan of Care Time Speech Therapy Time In: 10:15 Speech Therapy Time Out: 10:30 Total Billed Time: 15 Billed Treatment Time 1, JOAN YAÑEZ Apr 17, 2016 11:27
--- NOTE | 2016-04-17 11:27 | Physical Therapy Daily Note ---
PT Daily Note-Current Subjective Agrees to PT. Complains of itching. nursing notified. Mental Status Patient Orientation: Person, Place, Time, Situation Transfers Functional [place] Measure 0=Not Assessed/NA 4=Minimal Assistance 1=Total Assistance 5=Supervision or Setup 2=Maximal Assistance 6=Modified [place] 3=Moderate Assistance 7=Complete IndependenceIRFPAI Quality Coding Scale 6 Independent with activity with or without an assistive device 5 Patient requires set up or clean up by helper. Patient completes activity by themselves 4 Supervision or touching assist (CGA). [place] provide cues , steadying assist 3 The helper provides less than half the effort to complete the activity 2 The helper provides more than half the effort to complete the activity 1 Dependent. The helper does all the effort to complete an activity 7 Patient refused to complete or attempt activity 9 The patient did not perform the activity before the current illness or injury 88 Not attempted due to Medical conditions or safety concerns Treatments Pt able to transfer sup to sit EOB with mod assist-- assist to lift trunk and for right LE, min assist to transfer to sup from sitting EOB. Pt able to transfer sit to stand from elevated bed with CGA and amb x 25 ft (around foot of bed) to the wheelchair with QC with clsoe CGA. Pt then returned-- an additional 25 ft. Pt stood EOB x 3-4 minutes while bed sheets were changes. Pt in bed post treatment with needs met. Assessment Current Status: Good Progress Pt tolerated treatment well and is improving with her mobility. Functional gains noted. PT Short Term Goals Short Term Goals Time Frame: Apr 23, 2016 Transfers (B,C,W/C) (FIM): 4 Gait (FIM): 2 Distance (FIM): 1=up to 49 ft Gait Distance Comment: 25 ft Gait Assistive Device: Cane Large Base Quad PT Home Teaching Grades 7 And 8 Teacher Goals Home Teaching Grades 7 And 8 Teacher Goals PT Home Teaching Grades 7 And 8 Teacher Goals Time Frame: May 01, 2016 Transfers (B,C,W/C) (FIM): 5 Sit to Lying (QC): 5 Lying-Sitting on Side/Bed(QC): 5 Sit to Stand (QC): 5 Rollin Chair/[id number]-[id number] Xfer(QC): 5 Does the Patient Walk: Yes Gait (FIM): 4 Distance: 50 Walk 50ft with 2 Turns (QC): 4 Walk 150 ft (QC): 88 Gait Level of Assist: 4 (CGA) Gait Assistive Device: Walker 4 Wheeled Does the Pt use WC or Scooter?: Yes Wheelchair (FIM): 4 Wheelchair distance (FIM): 3=150 ft Wheel 50 feet with 2 turns (QC: 4 Stairs (FIM): 88 PT Plan Problem List Problem List: Activity Tolerance, Functional Strength, Safety, Gait, Transfer Treatment/Plan Treatment Plan: Continue Plan of Care Treatment Plan: Bed Mobility, Education, Functional Activity Kia, Functional Strength, Gait, Safety, Therapeutic Exercise, Transfers Treatment Duration: May 01, 2016 Visits Per Week: 5-6 Minutes/Day (M-F): 20-30 Minutes/Day (Sat/[place]): prn Safety Risks/Education Patient Education: Transfer Techniques, Safety Issues Teaching Recipient: Patient Teaching Methods: Demonstration, Discussion Response to Teaching: Return Demonstration, Reinforcement Needed Time/GCodes Time In: 850 Time Out: 926 Total Billed Treatment Time: 36 Total Billed Treatment visit FA 36 PAULA MAGANA PT Apr 17, 2016 11:26
--- NOTE | 2016-04-17 14:08 | Occupational Ther Daily Note ---
OT Current Status-Daily Note Subjective Pt seen in room, up in bed, agreeable to OT. No pain mentioned Appearance Alert, cooperative Mental Status/Objective Functional [place] Measure 0=Not Assessed/NA 4=Minimal Assistance 1=Total Assistance 5=Supervision or Setup 2=Maximal Assistance 6=Modified [place] 3=Moderate Assistance 7=Complete [place] ADL-Treatment Pt is not able to use her R arm as an assist. Functional [place] Measure 0=Not Assessed/NA 4=Minimal Assistance 1=Total Assistance 5=Supervision or Setup 2=Maximal Assistance 6=Modified [place] 3=Moderate Assistance 7=Complete IndependenceIRFPAI Quality Coding Scale 6 Independent with activity with or without an assistive device 5 Patient requires set up or clean up by helper. Patient completes activity by themselves 4 Supervision or touching assist (CGA). [place] provide cues , steadying assist 3 The helper provides less than half the effort to complete the activity 2 The helper provides more than half the effort to complete the activity 1 Dependent. The helper does all the effort to complete an activity 7 Patient refused to complete or attempt activity 9 The patient did not perform the activity before the current illness or injury 88 Not attempted due to Medical conditions or safety concerns Eating (FIM): 6 (Pt reported she fed herself and opened packages, cut food) Eating (QC): 6 Grooming (FIM): 5 (Pt brushed teeth with minimal setup. She took cap off toothpaste and put paste on toothbrush. Rinsed mouth setup. help to bring items to her and take them away) Oral Hygiene (QC): 5 Toileting Hygiene (QC): 3 (Pt needs help with wiping. Does not normally wear pants. 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 it with one person, to [facility]) Other Treatment L UE exercise working on shoulder and elbow with 1# weight to strengthen arms for ADLs Education OT Patient Education: Exercise program, Progress toward Goal/Update tx plan, Purpose of tx/functional activities OT Short Term Goals Short Term Goals Time Frame: Apr 30, 2016 Eating(FIM): 5 Grooming(FIM): 5 Bathing(FIM): 3 Upper Body Dressing(FIM): 4 Transfers (B,C,W/C) (FIM): 4 Additional Short Term Goals: 1-Demonstrate ADL Tasks, 2-Verbalize Understanding , 3-ImproveStrength/Kia 1=Demonstrate adherence to instructed precautions during ADL tasks. 2=Patient will verbalize/demonstrate understanding of assistive devices/ modifications for ADL. 3=Patient will improve strength/tolerance for activity to enable patient to perform ADL's. OT Systems Navigator Goals Systems Navigator Goals Time Frame: May 14, 2016 Eating (FIM): 7 Eating (QC): 6 Groomin Oral Hygiene (QC): 5 Bathing(FIM): 4 Upper Body Dressing(FIM): 6 Transfers (B,C,W/C) (FIM): 5 Toilet/Commode Transfer(FIM): 5 Toilet/Commode Transfer (QC): 5 Additional Goals: 1-Demonstrate ADL Tasks, 2-Verbalize Understanding, 3- ImproveStrength/Kia 1=Demonstrate adherence to instructed precautions during ADL tasks. 2=Patient will verbalize/demonstrate understanding of assistive devices/ modifications for ADL. 3=Patient will improve strength/tolerance for activity to enable patient to perform ADL's. OT Education/Plan Discharge Recommendations Plan/Recommendations: Continue POC Treatment Plan/Plan of Care Patient would benefit from OT for education, treatment and training to promote independence in ADL's, mobility, safety and/or upper extremity function for ADL' s. Plan of Care: ADL Retraining, Functional Mobility, UE Funct Exercise/Act Treatment Duration: May 14, 2016 Visits Per Week: 5-6 Agreement: Yes Rehab Potential: Guarded Time/GCodes Start Time: 13:40 Stop Time: 14:00 Total Time Billed (hr/min): 20 Billed Treatment Time visit, 15 minutes ADL, 5 minutes exercise LACI COYNE OT Apr 17, 2016 14:07
[2016-04-17] MEDS: ENOXAPARIN 40 MG/0.4 ML (LOVENOX) SYR SC SCH (16:49)
--- NOTE | 2016-04-17 19:51 | Wound Care Progress Note ---
Subjective Subjective Subjective/Events-last exam 45 year old female with deterioration of status of R leg in the last 24 hours. The patient is on IV Vancomycin. Doppler evaluation of lower extremity arteries and veins were inconclusive. The area of compromised skin appears darker. the patient shows no systemic deterioration, but her skin condition has deteriorated. It is recommended to the attending and the patient that she be transferred to a higher level of care. She would prefer [facility]. PMFSH: No interval change. Review of Systems General: No Chills Pulmonary: No Dyspnea Cardiovascular: No: Chest Pain Gastrointestinal: No: Abdominal Pain Musculoskeletal: : leg pain Objective Exam Last Set of Vital Signs Vital Signs Date Time Temp Pulse Resp B/P Pulse Ox O2 Delivery O2 Flow Rate FiO2 04/17/16 19:07 98 2.00 04/17/16 08:00 97.5 80 20 135/53 Room Air Capillary Refill : I&O Bad tableGeneral: Alert, No Acute Distress Lungs: Normal Air Movement Extremities: Other (massive edema and inflammatory skin changes of R leg, with worsening appearance and sweeling in the last 24 hours.) Results Lab Laboratory Tests 04/16/16 20:10: Glucometer 286H 04/17/16 05:59: Glucometer 188H 04/17/16 07:24: Vancomycin Level Trough 14.8 04/17/16 10:53: Glucometer 130H 04/17/16 15:58: Glucometer 231H Assessment/Plan Assessment/Plan Assessment/Plan 1. Cellulitis of R calf and thigh, with marked deterioration of clinical picture. 2. Previous stroke with impaired sensation R leg. 3. Diabetes mellitus. 4. Morbid obesity, debility. Plan: The patient is to continue IV antibiotics and be transferred to a higher level of care. PRISCILLA BERMEO MD Apr 17, 2016 19:51
[2016-04-17 19:52] VITALS: BP 109/69
[2016-04-17] MEDS: MONTELUKAST 10 MG (SINGULAIR) TAB PO SCH (23:00)
[2016-04-17] MEDS: FAMOTIDINE 20 MG (PEPCID) TABLET PO SCH (23:00)
[2016-04-18] MEDS: inSUlin ASPART (NovoLOG) 1 UNIT/0.01 ML (CHARGE PER UNIT) SC SCH ×3 (06:00→18:21)
[2016-04-18] MEDS: LACTOBACILLUS Acidoph/Bulgar (LACTINEX/FLORANEX) TAB PO SCH ×3 (06:58→18:21)
[2016-04-18] MEDS: LEVOTHYROXINE 125 MCG (LEVOTHROID) TABLET PO SCH (06:59)
[2016-04-18] MEDS: CATHETER FLUSH 10 ML SYR IV SCH ×2 (06:59→18:21)
[2016-04-18] MEDS: RT-ALBUTEROL SULF 2.5 MG/3 ML PRE-MIX VIAL INH SCH ×2 (07:44→13:56)
[2016-04-18 08:00] VITALS: BP 112/64
[2016-04-18] MEDS: GABAPENTIN 600 MG (NEURONTIN) TAB PO SCH ×2 (08:29→12:05)
[2016-04-18] MEDS: amLODIPine 5 MG (NORVASC) TAB PO SCH (08:29)
[2016-04-18] MEDS: oxyCODONE/APAP 5/325MG (PERCOCET 5) TABLET PO PRN ×2 (08:30→14:08)
[2016-04-18] MEDS: VANCOMYCIN INJECTION 1,500 MG in NS IV 500 ML 500 ML IV SCH (08:30)
[2016-04-18] MEDS: oxyCODONE ER 15 MG (oxyCONTIN CR) TAB PO SCH (08:30)
[2016-04-18] MEDS: MICONAZOLE 2% POWDER (DESENEX AF) 90 GM TOP SCH (08:30)
[2016-04-18] MEDS: FUROSEMIDE 40 MG (LASIX) TAB PO SCH (08:30)
[2016-04-18] MEDS: FAMOTIDINE 20 MG (PEPCID) TABLET PO SCH (08:30)
[2016-04-18] MEDS: CYCLOBENZAPRINE 10 MG (FLEXERIL) TAB PO SCH ×2 (08:30→12:05)
[2016-04-18] MEDS: MUPIROCIN 2% OINT 22 GM (BACTROBAN) TUBE NSEACH SCH (08:31)
[2016-04-18] MEDS: inSUlin DETERMIR 1 UNIT/0.01 ML (LEVEMIR) CHARGE PER UNIT SQ SCH (08:31)
[2016-04-18] MEDS: POLYETHYLENE GLYCOL 17 GM (MIRALAX) PACK PO SCH (08:41)
--- NOTE | 2016-04-18 10:11 | Progress Note-Hospitalist ---
Standard Progress Note Progress Notes/Assess & Plan Date Seen 04/18/16 Assess & Plan/Chief Complaint Dr. Workman from wound care called me last evening at home as he was finishing up his days rounds. He reported that he had last seen Ms. Maier's leg on Wednesday and thought that it was improving. It was freshly dressed when he saw her on and he did not reopen it. He opened this last evening and was discouraged by what he saw. This was especially true of the lower leg which shows seemed to be more deeply colored with multiple open areas after rupture of the bullae previously described. There were several areas that appeared to be darkening in color. The ulcerations caused by the bullae seemed to be only split thickness. He suggested that we needed to transfer her to a higher Center at this time. Accordingly I called the [facility] transfer line at 09 14 this morning and I'm awaiting their call back. Physical exam: She is more alert today than she was on Wednesday when I last saw her. She appears to understand the discussion at hand. Lungs are clear to auscultation. CV is regular without murmur. The right leg shows that the erythema has retreated from the marker lines over basically the entire anterior thigh. There is still dependent erythema over the posterior right thigh. There is extensive redness which is taken on and some areas a bluish pool overtone. There are multiple areas of open tissue but not down to the fat layer. There is no odor at this time. Impression: Extensive cellulitis right lower extremity. 2.apparent decline in the status over the last 24-36 hours. Plan: Await callback from [facility] JODEE STEWART MD Apr 18, 2016 10:11
--- NOTE | 2016-04-18 11:22 | Physical Therapy Daily Note ---
PT Daily Note-Current Subjective PT rates pain 10/10 "all over". Nurse present and states she is going to [facility] later today and may do exercise only in bed. Pt agreeable to exercise in bed. Transfers Functional [place] Measure 0=Not Assessed/NA 4=Minimal Assistance 1=Total Assistance 5=Supervision or Setup 2=Maximal Assistance 6=Modified [place] 3=Moderate Assistance 7=Complete IndependenceIRFPAI Quality Coding Scale 6 Independent with activity with or without an assistive device 5 Patient requires set up or clean up by helper. Patient completes activity by themselves 4 Supervision or touching assist (CGA). [place] provide cues , steadying assist 3 The helper provides less than half the effort to complete the activity 2 The helper provides more than half the effort to complete the activity 1 Dependent. The helper does all the effort to complete an activity 7 Patient refused to complete or attempt activity 9 The patient did not perform the activity before the current illness or injury 88 Not attempted due to Medical conditions or safety concerns Exercises Supine Ex: Ankle pumps, Quad Set, Glut sets, Heel Slides, Straight leg raise, Hip abd/add Supine Reps: 20 Treatments Pt seen for (L) LE ther ex only, supine. Assessment Current Status: Regressing Pt kayla exercises well despite high pain level. Pt in bed with all needs met. PT Short Term Goals Short Term Goals Time Frame: Apr 23, 2016 Transfers (B,C,W/C) (FIM): 4 Gait (FIM): 2 Distance (FIM): 1=up to 49 ft Gait Distance Comment: 25 ft Gait Assistive Device: Cane Large Base Quad PT Fci Goals Fci Goals PT Compliance Aide Goals Time Frame: May 01, 2016 Transfers (B,C,W/C) (FIM): 5 Sit to Lying (QC): 5 Lying-Sitting on Side/Bed(QC): 5 Sit to Stand (QC): 5 Rollin Chair/Ssc-zx-Xggel Xfer(QC): 5 Does the Patient Walk: Yes Gait (FIM): 4 Distance: 50 Walk 50ft with 2 Turns (QC): 4 Walk 150 ft (QC): 88 Gait Level of Assist: 4 (CGA) Gait Assistive Device: Walker 4 Wheeled Does the Pt use WC or Scooter?: Yes Wheelchair (FIM): 4 Wheelchair distance (FIM): 3=150 ft Wheel 50 feet with 2 turns (QC: 4 Stairs (FIM): 88 PT Plan Treatment/Plan Treatment Plan: Continue Plan of Care Treatment Plan: Bed Mobility, Education, Functional Activity Kia, Functional Strength, Gait, Safety, Therapeutic Exercise, Transfers Treatment Duration: May 01, 2016 Visits Per Week: 5-6 Minutes/Day (M-F): 20-30 Minutes/Day (Sat/Gu[place]ro): prn Time/GCodes Time In: 1100 Time Out: 1115 Total Billed Treatment Time: 15 Total Billed Treatment 1, there x 15 min MARITZA GUDINO CPTA Apr 18, 2016 11:22
[2016-04-18] MEDS: ENOXAPARIN 40 MG/0.4 ML (LOVENOX) SYR SC SCH (18:21)
--- NOTE | 2016-04-20 08:09 | Therapy Team Discharge Summary ---
Therapy Discharge Summary Discharge Recommendations Date of Discharge Apr 18, 2016 at 14:50 Therapy D/C Recommendations: 24 hr Supervision Occupational Therapy Pt. was seen briefly for occupational therapy to increase overall strength. At evaluation and subsequent days, pt. required min/mod assist for transfers. Mod assist with toileting as this was her baseline. Proper ADL training not fully evaluated as pt. transferred to for medical care. Pt. resides in custodial and at custodial did not wear LE clothing. Wore dresses that covered her lower half, and no footwear as she utilized a wheelchair around the facility. PT Senior Care Goals Senior Care Goals PT Moisture Conditioner Operator Goals Time Frame: May 01, 2016 Transfers (B,C,W/C) (FIM): 5 Sit to Lying (QC): 5 Lying-Sitting on Side/Bed(QC): 5 Sit to Stand (QC): 5 Rollin Chair/Bkm-tf-Cunsx Xfer(QC): 5 Does the Patient Walk: Yes Gait (FIM): 4 Distance: 50 Walk 50ft with 2 Turns (QC): 4 Walk 150 ft (QC): 88 Gait Level of Assist: 4 (CGA) Gait Assistive Device: Walker 4 Wheeled Does the Pt use WC or Scooter?: Yes Wheelchair (FIM): 4 Wheelchair distance (FIM): 3=150 ft Wheel 50 feet with 2 turns (QC: 4 Stairs (FIM): 88 OT Moisture Conditioner Operator Goals Senior Care Goals Time Frame: May 14, 2016 Eating (FIM): 7 Eating (QC): 6 Groomin Oral Hygiene (QC): 5 Bathing(FIM): 4 Upper Body Dressing(FIM): 6 Transfers (B,C,W/C) (FIM): 5 Toilet/Commode Transfer(FIM): 5 Toilet/Commode Transfer (QC): 5 Additional Goals: 1-Demonstrate ADL Tasks, 2-Verbalize Understanding, 3- ImproveStrength/Kia 1=Demonstrate adherence to instructed precautions during ADL tasks. 2=Patient will verbalize/demonstrate understanding of assistive devices/ modifications for ADL. 3=Patient will improve strength/tolerance for activity to enable patient to perform ADL's. Speech Moisture Conditioner Operator Goals Moisture Conditioner Operator Goals 1. The patient will demonstrate improved cognitive linguistic skills for increased function and safety with ADL's in the least restrictive setting. Time Frame: Four Weeks TORSTEN QUESADA OT Apr 20, 2016 08:09
--- NOTE | 2016-05-06 12:41 | Discharge Summary-Hospitalist ---
Diagnosis/Chief Complaint Date of Admission Apr 16, 2016 at 11:42 Date of Discharge Apr 18, 2016 at 14:50 Admission Diagnosis Severe cellulitis right lower extremity Discharge Diagnosis 1.extensive cellulitis right lower extremity with evidence of regression. Secondary diagnoses: Morbid obesity. 2.diabetes type II Reason Hospital Visit/Course The patient was a 45-year-old morbidly obese white female who had been admitted with extensive cellulitis of the right lower extremity on 04/08. She was marked with an indelible pen in the emergency room. She was placed on broad-spectrum antibiotics aimed at gram positives. This was very slow to regress but ultimately began shrinking away from the marker on the upper thigh which actually reached nearly the groin with the exclusion of the central anterior thigh. The color also began to become somewhat less fiery. She was seen by the wound care service and Dr. Workman. The progress continued to be slow. She ultimately developed some large rather superficial bullae particularly on the lateral aspect of the right ankle and especially a long vertically oriented bulla on the medial calf slightly towards the tibial aspect. These ultimately opened. She was transferred to the swing bed service on 04/[address] Workman called me on the evening of 04/17 and reported that he thought that there had been a regression in the appearance of her wounds. And recommended that we transfer her to a tertiary center such as [facility]. This effort was begun at 0914 hours on 04/18. The patient was ultimately accepted for transfer to [facility]. Suitable arrangements were made for transfer by ambulance. Condition at discharge was stable but tenuous. Discharge Summary Discharge Physical Examination Allergies: Coded Allergies: meperidine HCl (Verified Allergy, Severe, seizure, 02/14/16) fluticasone propionate (Verified Allergy, Intermediate, HIVES, 02/14/16) salmeterol xinafoate (Verified Allergy, Intermediate, HIVES, 02/14/16) ibuprofen (Unverified Allergy, Unknown, 02/14/16) levofloxacin (Verified Adverse Reaction, Unknown, 02/14/16) Discharge Home Medications: Active Scripts Active Reported Skin Protectant (Zinc Oxide) 113 Gm Cream..g. TP BID APPLY TO LEFT BUTTOCK, LEFT AND RIGHT THIGHS WHERE OPEN AREAS ARE LOCATED Xopenex Hfa (Levalbuterol Tartrate) 15 Gm Hfa.aer.ad 2 Puff IH BID Alprazolam 0.25 Mg Tablet 0.25 Mg PO Q6H PRN Bupropion Xl (Bupropion HCl) 150 Mg Tab.er.24h 300 Mg PO DAILY TAKES 2 (150MG) TABLETS Tradjenta (Linagliptin) 5 Mg Tablet 5 Mg PO DAILY Guaifenesin Dm Syrup (Guaifenesin/Dextromethorphan) 5 Ml Syrup 10 Ml PO Q4H PRN Oxycodone-Acetaminophen 5-325 (Oxycodone HCl/Acetaminophen) 1 Each Tablet 1-2 Tab PO EVERY 4-6 HOURS Oxycontin (Oxycodone HCl) 30 Mg Tab.er.12h 30 Mg PO BID Nystatin 15 Gm Cream..g. TP PRN PRN APPLY TO SKIN FOLDS Novolog Flexpen (Insulin Aspart) 300 Units/3 Ml Solution SC AC 151-200 = 6 UNITS 201-250 = 8 UNITS 251-300 = 10 UNITS 301-350 = 12 UNITS 351-400 = 14 UNITS CALL MD FOR SUGAR UNDER 60 AND OVER 400 Amlodipine Besylate 5 Mg Tablet 5 Mg PO DAILY Multivitamins with Minerals (Multivitamin with Minerals) 1 Each Tablet 1 Tab PO DAILY [Mucinex Allergy] 180 Mg PO Q12H PRN ACTIVE INGREDIENT FEXOFENADINE 180MG Metformin HCl 1,000 Mg Tablet 1,000 Mg PO BID Atorvastatin Calcium 20 Mg Tablet 20 Mg PO DAILY Levothyroxine Sodium 125 Mcg Tablet 250 Mcg PO DAILY TAKES 2 (125MCG) TABLETS Levemir Flextouch (Insulin Detemir) 100 Unit/1 Ml Insuln.pen 19 Units SC HS Furosemide 80 Mg Tablet 80 Mg PO DAILY Furosemide 80 Mg Tablet 80 Mg PO DAILY PRN MAY GIVE PRN DAILY IN ADDITION TO SCHEDULED DOSE Gabapentin 600 Mg Tablet 600 Mg PO TID Fluticasone Propionate 16 Gm [place].susp 1 [place] NS DAILY Cranberry Tablet (Cranberry Conc/C/Bacill Coag) 1 Each Tablet 1 Tab PO TID Colace (Docusate Sodium) 100 Mg Capsule 100 Mg PO Q12H PRN Albuterol Sulfate 2.5 Mg/3 Ml Vial.neb 2.5 Mg NEB Q2H PRN Acidophilus (Lactobacillus Acidophilus) 1 Each Tablet 2 Tab PO QID Gluco Burst (Dextrose) 37.5 Gm Gel..gram. 15 Gm PO UD PRN GIVE ONE PACKET FOR HYPOGLYCEMIA AND TAKE BS IN 15 MIN, IF NOT RISING GIVE ANOTHER PACKET AND RE-TAKE BS IN 15 MIN, IF NO CHANGE IN BS OR LOC GIVE IM GLUCAGON AND NOTIFY Calcium 600 + Vit D 400 Tablet (Calcium Carbonate/Vitamin D3) 1 Each Tablet 1 Tab PO BID Glucagen (Glucagon,Human Recombinant) 1 Mg/1 Ml Vial 1 Mg IM UD PRN Fish Oil 1,000 Mg Cap 1,000 Mg PO TID Elsie Allergy (Fexofenadine Hcl) 180 Mg Tablet 180 Mg PO DAILY Flexeril Tablet (Cyclobenzaprine Hcl) 10 Mg Tablet 10 Mg PO TID Montelukast Sodium 10 Mg Tablet 10 Mg PO HS Clopidogrel (Clopidogrel Bisulfate) 75 Mg Tablet 75 Mg PO DAILY Ecotrin (Aspirin) 325 Mg Tablet.dr 325 Mg PO DAILY Vitamin C 500 Mg (Ascorbic Acid) 500 Mg Tablet 500 Mg PO DAILY Instructions to patient/family Please see electonic discharge instructions given to patient. Copy Copies To 1: GISELLE NASSAR MD, RODNEY K MD May 06, 2016 12:41
== END 2016-04-18 14:50 | disposition short-term general hospital (02) | DRG 603 ==
LOC: 4TH 11:42
PROVIDERS: ADMIT Internal Medicine; ATTEND Internal Medicine
DX: L03.115 Cellulitis of right lower limb (principal); L03.031 Cellulitis of right toe; J44.9 Chronic obstructive pulmonary disease, unspecified; N17.9 Acute kidney failure, unspecified; I13.0 Hypertensive heart and chronic kidney disease with heart failure and stage 1 through stage 4 chronic kidney disease, or unspecified chronic kidney disease; I69.351 Hemiplegia and hemiparesis following cerebral infarction affecting right dominant side; Z68.43 Body mass index [BMI] 50.0-59.9, adult; Z66 Do not resuscitate; R09.02 Hypoxemia; G47.33 Obstructive sleep apnea (adult) (pediatric); I50.9 Heart failure, unspecified; E66.01 Morbid (severe) obesity due to excess calories; E11.9 Type 2 diabetes mellitus without complications; F32.9 Major depressive disorder, single episode, unspecified; Z79.4 Long term (current) use of insulin; N18.9 Chronic kidney disease, unspecified; B95.62 Methicillin resistant Staphylococcus aureus infection as the cause of diseases classified elsewhere
CPT/HCPCS: 36415; 80202; 82962; 94640; 94760

== ENCOUNTER → 2016-08-30 | Outpatient (CLI) | payer MEDICARE, MEDICAID ==
[~2016-08-30] MED LIST changes: +ASCO500T7 PO; +ASPI-808 PO; +ATOR40TA70 PO; +BUPR300T51 PO; +CLOP75TA69 PO; +CYCL10TA9 PO; +FENT1PAT11 TD; +GLUC1KIT IJ; +GUAI600T43 PO; +SERT50TA2 PO
== END ==
LOC: LABNPT 19:19
PROVIDERS: ATTEND Internal Medicine
DX: Z51.81 Encounter for therapeutic drug level monitoring (principal); Z79.899 Other long term (current) drug therapy
CPT/HCPCS: 80346

== ENCOUNTER 2017-01-12 05:40 | Outpatient (CLI) | payer MEDICARE, MEDICAID ==
[~2017-01-12] VITALS: Ht 167.6 cm; Wt 183.7 kg
[~2017-01-12 05:40] MED LIST changes: -ASCO500T7 PO; -ASPI-808 PO; -ATOR40TA70 PO; -BUPR300T51 PO; -CLOP75TA69 PO; -CYCL10TA9 PO; -FENT1PAT11 TD; -GLUC1KIT IJ; -GUAI600T43 PO; -SERT50TA2 PO
[2017-01-12] MEDS ORDERED: OMG1KC PO (14:09)
[2017-01-12] MEDS ORDERED: BUPR300T51 PO (14:09)
[2017-01-12] MEDS ORDERED: FENT1PAT11 TD (14:09)
[2017-01-12] MEDS ORDERED: ASCO500T7 PO (14:09)
[2017-01-12] MEDS ORDERED: ASPI-808 PO (14:09)
[2017-01-12] MEDS ORDERED: GLUC1KIT IJ (14:09)
[2017-01-12] MEDS ORDERED: CLOP75TA69 PO (14:09)
[2017-01-12] MEDS ORDERED: MONT10TA24 PO (14:09)
[2017-01-12] MEDS ORDERED: ATOR40TA70 PO (14:09)
[2017-01-12] MEDS ORDERED: FEXO180T84 PO (14:09)
[2017-01-12] MEDS ORDERED: GUAI600T43 PO (14:09)
[2017-01-12] MEDS ORDERED: CYCL10TA9 PO (14:09)
[2017-01-12] MEDS ORDERED: SERT50TA2 PO (14:10)
== END 2017-01-12 14:18 ==
LOC: PREOP 05:40
PROVIDERS: ATTEND Surgery
DX: Z01.818 Encounter for other preprocedural examination (principal); K21.9 Gastro-esophageal reflux disease without esophagitis

== ENCOUNTER 2017-01-19 06:29 | Day surgery (SDC) | payer MEDICARE, MEDICAID ==
[~2017-01-19] VITALS: Ht 167.6 cm; Wt 183.7 kg
[~2017-01-19 06:29] MED LIST changes: +ASCO500T7 PO; +ASPI-808 PO; +ATOR40TA70 PO; +BUPR300T51 PO; +CLOP75TA69 PO; +CYCL10TA9 PO; +FENT1PAT11 TD; +GLUC1KIT IJ; +GUAI600T43 PO; +SERT50TA2 PO
--- OUTSIDE RECORDS SUMMARY | 2017-01-19 06:38 | XMS REPORT ---
Author Author [facility] Address Unknown Care Team Providers Care American Indian Studies Professor Name Role Phone [facility] Unavailable PROBLEMS Type Condition ICD9-CM Code YEM07-LV Code Onset Dates Condition Status SNOMED Code Assessment Dental examination Z01.20 Oct, Active [id number] ALLERGIES Substance Reaction Event Type Date Status Ibuprofen Unknown Drug Allergy Oct, Active Demerol Unknown Drug Allergy Oct, Active Advair HFA Unknown Drug Allergy Oct, Active SOCIAL HISTORY No smoking Hx information available PLAN OF CARE VITAL SIGNS Blood pressure systolic 119 mmHg 2015-10-29 Blood pressure diastolic 70 mmHg 2015-10-29 MEDICATIONS Medication Instructions Dosage Frequency Start Date End Date Duration Status Fish Oil Active Tramadol HCl Active Acidophilus Active Montelukast Sodium Active Amoxicillin 500 MG Orally Three times a day 1 capsule 8h 7 days Active Flonase Active Levemir Active Aspirin Active Glucagon (rDNA) Active Furosemide Active Flexeril Active Xopenex Active Tradjenta Active Mucinex Active Levothyroxine Sodium Active Gabapentin Active Cymbalta Active NovoLog Active OxyContin Active Metformin HCl Active Albuterol Active Duloxetine HCl Active Vitamin C Active Multivital-M Active Clopidogrel Bisulfate Active Simvastatin Active Calcium 600 + D Active RESULTS No Results PROCEDURES Procedure Date Ordered Related Diagnosis Body Site LTD ORAL EVALUATION - PROBLEM FOCUS Oct 29, 2015 INTRAORL-PERIAPICAL 1 FILM [id number] Oct 29, 2015 IMMUNIZATIONS No Known Immunizations
[2017-01-19 07:40] VITALS: BP 179/81
[2017-01-19] MEDS ORDERED: LACTATED RINGERS 1,000 ML IV PRN (08:00)
[2017-01-19] MEDS ORDERED: HURRICAINE EXT TUBE (BENZOCAINE) XX PRN (08:00)
[2017-01-19] MEDS ORDERED: proPOfol 200 MG/20 ML (DIPRIVAN) VIAL IV ONE (08:39)
[2017-01-19] MEDS ORDERED: LIDOCAINE PF 2% 5 ML (XYLOCAINE) VIAL ONE (08:40)
--- NOTE | 2017-01-19 08:41 | Progress Note-Pre Operative ---
Pre-Operative Progress Note H&P Reviewed The H&P was reviewed, patient examined and no changes noted. Date Seen by Provider: Jan 19, 2017 Time Seen by Provider: 08:41 Date H&P Reviewed: Jan 19, 2017 Time H&P Reviewed: 08:41 Pre-Operative Diagnosis: gerd, dysphagia GLORY MARTINEZ DO Jan 19, 2017 8:41 am
--- NOTE | 2017-01-19 10:09 | Progress Note-Post Operative ---
Post-Operative Progess Note Surgeon (s)/Band Straightener (s) Surgeon GLORY MARTINEZ DO Band Straightener: na Pre-Operative Diagnosis gerd, dysphagia Post-Operative Diagnosis gastritis, esophagitis Procedure & Operative Findings Date of Procedure 01/19/17 Procedure Performed/Findings egd c biopsies Anesthesia Type per water and sewer systems supervisor Estimated Blood Loss Estimated blood loss (mL): scant Specimens/Packing Specimens Removed antrum, body, ge junction GLORY MARTINEZ DO Jan 19, 2017 10:08 am
[2017-01-19] MEDS ORDERED: SUCR1TAB36 PO (10:11)
[2017-01-19] MEDS ORDERED: PANT40TA2 PO (10:11)
[2017-01-19] MEDS ORDERED: HURRICAINE EXT TUBE (BENZOCAINE) ONE (10:11)
--- NOTE | 2017-01-19 10:12 | Discharge Inst-Simple/Standard ---
Discharge Inst-Standard Discharge Medications New, Converted or Re-Newed RX: Transmitted to Pharmacy Patient Instructions/Follow Up Plan of Care/Instructions/FU: 3 weeks Toni Activity as Tolerated: Yes Discharge Diet: Regular Diet GLORY MARTINEZ DO Jan 19, 2017 10:12 am
[2017-01-19 10:25] VITALS: BP 171/84
[2017-01-19 11:00] VITALS: BP 165/80
[2017-01-19 13:03] VITALS: BP 165/80
--- NOTE | 2017-01-19 15:40 | OPERATIVE REPORT ---
DATE OF SERVICE: 01/19/2017 PREOPERATIVE DIAGNOSES: Gastroesophageal reflux disease, dysphagia. POSTOPERATIVE DIAGNOSES: Gastritis, esophagitis. PROCEDURE: EGD with biopsies. SURGEON: Glory Muñoz DO ANESTHESIA: Per TECHNICAL OPERATIONS MANAGER. ESTIMATED BLOOD LOSS: Scant. COMPLICATIONS: None. INDICATIONS: The patient is a 46-year-old female with a history of stroke. She has worsening reflux and dysphagia. She understands risks and benefits of procedure and wished to proceed with procedure. Consent was signed in the chart. DESCRIPTION OF PROCEDURE: The patient was taken to the endoscopy suite, placed in left lateral recumbent position. Timeout was performed. Scope was inserted in the mouth, down the esophagus, stomach and into the duodenum without difficulty. There were no polyps, masses or ulcerations within the duodenum. The scope was slowly retracted back into the stomach, which was further insufflated demonstrating some erythematous changes. No polyps, masses or ulcerations. Also biopsy of the antrum was obtained. Scope was also retroflexed noting no other pathology. There was no hiatal hernia. Scope was returned to its normal position, slowly withdrawn. There was some erythematous change consistent with esophagitis at the GE junction. Biopsy was obtained. Scope was then slowly retracted back noting no other pathology. The patient tolerated the procedure well without any complications. She was taken to recovery room in stable condition. RECOMMENDATIONS: The patient will be started on Protonix 40 mg daily and Carafate 1 gram 4 times a day. If she has any problems prior to that, she should be reevaluated at that time. Otherwise, she will follow up in 3 weeks to see how she is doing at that time and go over biopsies. Job ID: [id number] DocumentID: [id number] Dictated Date: 01/19/2017 10:15:02 Bridge Maintainer Date: 01/19/2017 15:19:05 Dictated By: GLORY MUÑOZ DO
== END 2017-01-19 11:20 | disposition home or self-care (01) ==
LOC: ENDO 06:29
PROVIDERS: ATTEND Surgery
DX: K20.9 Esophagitis, unspecified (principal); K29.70 Gastritis, unspecified, without bleeding; Z88.1 Allergy status to other antibiotic agents; Z88.5 Allergy status to narcotic agent; Z88.8 Allergy status to other drugs, medicaments and biological substances; Z79.899 Other long term (current) drug therapy; E11.9 Type 2 diabetes mellitus without complications; Z79.4 Long term (current) use of insulin; Z66 Do not resuscitate; I69.353 Hemiplegia and hemiparesis following cerebral infarction affecting right non-dominant side; E78.5 Hyperlipidemia, unspecified; I11.0 Hypertensive heart disease with heart failure; I50.9 Heart failure, unspecified; E66.01 Morbid (severe) obesity due to excess calories; F17.210 Nicotine dependence, cigarettes, uncomplicated; G47.33 Obstructive sleep apnea (adult) (pediatric); J44.9 Chronic obstructive pulmonary disease, unspecified; Z99.81 Dependence on supplemental oxygen; F32.9 Major depressive disorder, single episode, unspecified; Z68.44 Body mass index [BMI] 60.0-69.9, adult
CPT/HCPCS: 36415; 82962; 84703

== ENCOUNTER → 2017-09-11 | Outpatient (CLI) | payer MEDICARE, MEDICAID ==
[~2017-09-11] MED LIST changes: -METF1000 PO; +METF10002 PO; +PANT40TA2 PO; +SUCR1TAB36 PO
[2017-09-11 15:35] LABS: BILIRUBIN,URINE NEGATIVE (NEGATIVE); CLARITY,URINE CLEAR; COLOR,URINE YELLOW; GLUCOSE, URINE (UA) NEGATIVE (NEGATIVE); KETONES,URINE NEGATIVE (NEGATIVE); LEUKOCYTE ESTERASE ,URINE 1+ (NEGATIVE); NITRITE,URINE NEGATIVE (NEGATIVE); PH,URINE 7 (5-9); PROTEIN,URINE NEGATIVE (NEGATIVE); UROBILINOGEN,URINE NORMAL (NORMAL)
[2017-09-11 15:44] LABS: BACTERIA,URINE LARGE /HPF
== END ==
LOC: LABNPT 15:25
PROVIDERS: ATTEND Internal Medicine
DX: R30.0 Dysuria (principal); R39.15 Urgency of urination; Z87.440 Personal history of urinary (tract) infections
CPT/HCPCS: 81000; 87088; 87186

== ENCOUNTER 2018-10-07 15:39 | Emergency (ER) | payer MEDICARE, MEDICAID | END 2018-10-07 20:03 | disposition home or self-care (01) | LOC: ER 15:39 ==

== ENCOUNTER 2018-10-15 20:13 | Inpatient (IN) | payer MEDICARE, MEDICAID | END 2018-10-18 15:40 | LOC: 4TH 10-16 00:05 → ER 20:13 ==

== ENCOUNTER 2021-08-04 04:22 | Emergency (ER) | payer MEDICARE, MEDICAID ==
[~2021-08-04] VITALS: Ht 170.1 cm; Wt 188.4 kg
[~2021-08-04 04:22] MED LIST changes: +ACET-2717 PO; +ACET650T14 PO; +ALPR.25T PO; -ALPR0.254 PO; +AMLO-250 PO; -AMLO5TAB2 PO; +BISA5TAB8 PO; +BUPR150T24 PO; -BUPR150T7 PO; +BUPR150T9 PO; -BUPR300T51 PO; +BUPR300T98 PO; +CALC-1026 PO; -CALC1TAB94 PO; +CEFT2PIG IV; +CRAN400C PO; +CYCL10TA25 PO; -CYCL10TA9 PO; +DIME42GE TP; +DOXY-311 PO; -DOXY100C2 PO; -DOXY100C42 PO; +DOXY100C5 PO; +FLUC100T PO; -GABA600T2 PO; +GBPN600T PO; +HYDR-700 PO; +LEVO175T5 PO; +LOPE-134 PO; +METF-399 PO; -METF10002 PO; +MIRA50TA PO; +MONT-40 PO; +ONDA8TAB6 PO; +OXYC-188 PO; -OXYC-197 PO; -OXYC-471 PO; +OXYC1TAB11 PO; +OXYC1TAB87 PO
--- NOTE | 2021-08-04 05:03 | ED GU-Female ---
General Chief Complaint: - Reproductive Stated Complaint: PAIN WHEN URINATING Nursing Triage Note: PT ARRIVAL TO ER [facility]IA [facility] WITH COMPLAINT OF PAINFUL URINATION X2 HOURS. PT CAME FROM [facility]. Source: patient, EMS Exam Limitations: no limitations History of Present Illness Date Seen by Provider: Aug 04, 2021 Time Seen by Provider: 04:43 Initial Comments Patient presents to the ER by [facility] with chief complaint of dysuria starting tonight. Staff noted that she had a [place] catheter however they were not sure the last time it was changed so they changed out to see if that would help her discomfort. She did not tolerate having new [place] catheter in so they took it out. She does not know why she has been as she is a exquisitely poor historian. She cannot tell me the last time she was treated for UTI or when the symptoms started but it does appear that it started around 9:00 according to staff. No nausea vomiting diarrhea fevers chills cough. [facility] staff just wanted to get a urinalysis but the patient insisted she needed to come to the ER. She is followed by LATRICIA Anthony. Allergies and Home Medications Allergies Coded Allergies: meperidine HCl (Verified Allergy, Severe, seizure, 02/14/16) fluticasone propionate (Verified Allergy, Intermediate, HIVES, 02/14/16) salmeterol xinafoate (Verified Allergy, Intermediate, HIVES, 02/14/16) ibuprofen (Unverified Allergy, Unknown, 02/14/16) levofloxacin (Verified Adverse Reaction, Unknown, 02/14/16) Patient Home Medication List Home Medication List Reviewed: Yes ALPRAZolam (Xanax Tablet) 0.25 Mg Tablet, 0.25 MG PO Q6H PRN for ANXIETY, (Reported) Entered as Reported by: MUNA ROBERTS on 04/09/16 0853 Acetaminophen (Arthritis Pain Reliever) 650 Mg Tablet.er, 650 MG PO Q4H PRN for PAIN-MILD, (Reported) Entered as Reported by: LIBORIO MARTINEZ on 10/18/18 1323 Acetaminophen (Acetaminophen 8 Hour) 650 Mg Tablet.er, 1,300 MG PO Q4H PRN for TEMPERATURE, (Reported) Entered as Reported by: LIBORIO MARTINEZ on 10/18/18 1323 Albuterol Sulfate (Albuterol Sulfate) 2.5 Mg/3 Ml Vial.neb, 2.5 MG NEB Q12H, (Reported) Entered as Reported by: MUNA ROBERTS on 04/09/16 0853 Amlodipine Besylate (Amlodipine Besylate) 5 Mg Tablet, 5 MG PO DAILY, (Reported) Entered as Reported by: MUNA ROBERTS on 04/09/16 0853 Ascorbic Acid (Ascorbic Acid) 500 Mg Tablet, 500 MG PO DAILY, (Reported) Entered as Reported by: SALONI SERNA on 01/12/17 140 Aspirin (Aspirin) 325 Mg Tablet, 325 MG PO DAILY, (Reported) Entered as Reported by: SALONI SERNA on 01/12/17 140 Atorvastatin Calcium (Atorvastatin Calcium) 40 Mg Tablet, 40 MG PO DAILY, (Reported) Entered as Reported by: SALONI SERNA on 01/12/17 140 Bisacodyl (Bisacodyl) 5 Mg Tablet.dr, 5 MG PO DAILY PRN for CONSTIPATION-4TH LINE, (Reported) Entered as Reported by: LIBORIO MARTINEZ on 10/18/18 1323 Bupropion HCl (Wellbutrin Sr) 150 Mg Tablet.er, 150 MG PO BID, (Reported) Entered as Reported by: LIBORIO MARTINEZ on 10/18/18 1313 Calcium Carbonate/Vitamin D3 (Calcium 600 + Vit D 400 Tablet) 1 Each Tablet, 1 TAB PO DAILY, (Reported) Entered as Reported by: MUNA ROBERTS on 04/09/16 0853 Ceftriaxone Na/Dextrose,Iso (Ceftriaxone 2 gm-D5w Bag) 2 Gm/50 Ml Piggyback, 2 GM IV DAILY Prescribed by: SWETA BRANDT on 10/18/18 1357 Clopidogrel Bisulfate (Plavix) 75 Mg Tablet, 75 MG PO DAILY, (Reported) Entered as Reported by: SALONI SERNA on 01/12/17 140 Cranberry (Cranberry) 400 Mg Capsule, 400 MG PO TID, (Reported) Entered as Reported by: LIBORIO MARTINEZ on 10/18/18 1313 Cyclobenzaprine HCl (Cyclobenzaprine HCl) 10 Mg Tablet, 10 MG PO BID, (Reported) Entered as Reported by: SALONI SERNA on 01/12/17 140 Dimethicone (Monistat Soothing Care) 42 Gm Gel..gram., 1 UNIT TP BID PRN for ITCHING, (Reported) Entered as Reported by: LIBORIO MARTINEZ on 10/18/18 132 Fentanyl (Fentanyl Patch 100 MCG) 1 Each Patch.td72, 100 MCG TD Q72H, (Reported) Entered as Reported by: SALONI SERNA on 01/12/17 1409 Fexofenadine HCl (Elsie Allergy) 180 Mg Tablet, 180 MG PO DAILY, (Reported) Entered as Reported by: SALONI SERNA on 01/12/17 140 Fluconazole (Diflucan) 100 Mg Tablet, 100 MG PO DAILY, (Reported) Entered as Reported by: LIBORIO MARTINEZ on 10/18/18 132 Fluticasone Propionate (Fluticasone Propionate) 16 Gm [place].susp, 1 SPRAY NS DAILY, (Reported) Entered as Reported by: MUNA ROBERTS on 04/09/16 0853 Furosemide (Furosemide) 80 Mg Tablet, 80 MG PO DAILY, (Reported) Entered as Reported by: MUNA ROBERTS on 04/09/16 08 Gabapentin (Gabapentin) 600 Mg Tablet, 600 MG PO TID, (Reported) Entered as Reported by: MUNA ROBERTS on 04/09/16 0853 Glucagon,Human Recombinant (Glucagon Emergency Kit) 1 Mg/Kit Soln, 1 MG IJ PRN PRN for unresponsive hypoglycemic, (Reported) Entered as Reported by: SALONI SERNA on 01/12/17 140 Guaifenesin (Mucinex) 600 Mg Tab.er.12h, 600 MG PO BID, (Reported) Entered as Reported by: SALONI SERNA on 01/12/17 140 Hydroxyzine HCl (Hydroxyzine HCl) 25 Mg Tablet, 25 MG PO Q8H PRN for ITCHING, (Reported) Entered as Reported by: LIBORIO MARTINEZ on 10/18/18 1323 Insulin Detemir (Levemir Flextouch) 100 Unit/1 Ml Insuln.pen, 20 UNITS SC HS, (Reported) Entered as Reported by: MUNA ROBERTS on 04/09/16 0853 Levalbuterol Tartrate (Xopenex Hfa) 15 Gm Hfa.aer.ad, 2 PUFF IH BID, (Reported) Entered as Reported by: MUNA ROBERTS on 04/09/16 0853 Levothyroxine Sodium (Levothyroxine Sodium) 175 Mcg Tablet, 275 MCG PO DAILY, (Reported) Entered as Reported by: LIBORIO MARTINEZ on 10/18/18 1313 Loperamide HCl (Imodium A-D) 2 Mg Tablet, 4 MG PO DAILY PRN for LOOSE STOOLS, (Reported) Entered as Reported by: LIBORIO MARTINEZ on 10/18/18 1323 Loperamide HCl (Imodium A-D) 2 Mg Tablet, 2 MG PO UD PRN for LOOSE STOOLS, (Reported) Entered as Reported by: LIBORIO MARTINEZ on 10/18/18 1323 Metformin HCl (Metformin HCl) 1,000 Mg Tablet, 1,000 MG PO BID, (Reported) Entered as Reported by: MUNA ROBERTS on 04/09/16 0853 Mirabegron (Myrbetriq) 50 Mg Tab.er.24h, 50 MG PO DAILY, (Reported) Entered as Reported by: LIBORIO MARTINEZ on 10/18/18 1323 Montelukast Sodium (Montelukast Sodium) 10 Mg Tablet, 10 MG PO HS, (Reported) Entered as Reported by: SALONI SERNA on 01/12/17 1409 Multivitamin with Minerals (Multivitamins with Minerals) 1 Each Tablet, 1 TAB PO DAILY, (Reported) Entered as Reported by: MUNA ROBERTS on 04/09/16 0853 [place] 3 Polyunsat Fatty Acids (Fish Oil 1,000 mg Capsule) 1,000 Mg Cap, 1,000 MG PO TID, (Reported) Entered as Reported by: SALONI SERNA on 01/12/17 1409 Ondansetron HCl (Zofran) 8 Mg Tablet, 8 MG PO Q8H PRN for NAUSEA/VOMITING-1ST LINE, (Reported) Entered as Reported by: LIBORIO MARTINEZ on 10/18/18 1325 Pantoprazole Sodium (Protonix) 40 Mg Tablet.dr, 40 MG PO DAILY Prescribed by: GLORY MARTINEZ on 01/19/17 1011 Sertraline HCl (Zoloft) 50 Mg Tablet, 75 MG PO DAILY, (Reported) Entered as Reported by: SALONI SERNA on 01/12/17 1410 Review of Systems Review of Systems Constitutional: No chills, No diaphoresis EENTM: No ear discharge, No ear pain Respiratory: No cough, No short of breath Cardiovascular: No chest pain, No edema Gastrointestinal: No abdominal pain, No nausea, No vomiting Genitourinary: denies discharge, denies dysuria All Other Systemes Reviewed Negative Unless Noted: Yes Past Oescnkk-Uzhtzf-Hclade Hx Patient Social History Tobacco Use?: No Use of E-Cig and/or Vaping dev: No Substance use?: No Alcohol Use?: No Pt feels they are or have been: No Immunizations Up To Date Influenza Vaccine Up-to-Date: Yes; Up-to-Date Seasonal Allergies Seasonal Allergies: Yes Past Medical History Surgeries: Yes (fractured ankle 09/18/13; PORT RIGHT CHEST; EGD 2016) Orthopedic Respiratory: Yes Sleep Apnea, COPD Currently Using CPAP: No Currently Using BIPAP: Yes (BIPAP AT HS) Cardiac: Yes (CHF) Chronic Edema/Swelling, High Cholesterol, Hypertension Neurological: Yes (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 ) Diabetes, Insulin dep, Hypothyroidsim HEENT: Yes Dysphagia Cancer: No Psychosocial: Yes (OCD; MANIPULATIVE BEHAVIOR) Eating Disorder, Anxiety, Personality Disorder, Depression Integumentary: Yes (CHRONIC AREAS OF SKIN BREAKDOWN; LEG CELLULITIS ) Blood Disorders: No Family Medical History Patient reports no known family medical history. No Pertinent Family Hx Physical Exam Vital Signs Vital Signs - First Documented 08/04/21 04:34 Temp 36.6 Pulse 88 Resp 20 B/P (MAP) 142/76 (98) Pulse Ox 96 O2 Delivery Room Air Capillary Refill : Less Than 3 Seconds Height, Weight, BMI Height: 5'7.00" Weight: 412lbs. 0oz. [id number]; 65.00 BMI Method:Stated General Appearance: no apparent distress, obese HEENT: PERRL/EOMI, pharynx normal Neck: full range of motion, normal inspection Cardiovascular: normal peripheral pulses, regular rate, rhythm Respiratory: no respiratory distress, no accessory muscle use Extremities: non-tender, normal capillary refill Neurologic/Psychiatric: alert, normal mood/affect, oriented x 3 Progress/Results/Core Measures Suspected Sepsis SIRS Temperature: Pulse: 88 Respiratory Rate: 20 Blood Pressure 142 /76 Mean: 98 Results/Orders Lab Results Laboratory Tests Test 08/04/21 05:11 Range/Units Urine Color YELLOW Urine Clarity CLEAR Urine pH 8.0 5-9 Urine Specific [place] 1.010 L 1.016-1.022 Urine Protein TRACE H NEGATIVE Urine Glucose (UA) NEGATIVE NEGATIVE Urine Ketones NEGATIVE NEGATIVE Urine Nitrite NEGATIVE NEGATIVE Urine Bilirubin NEGATIVE NEGATIVE Urine Urobilinogen 1.0 < = 1.0 MG/DL Urine Leukocyte Esterase 2+ H NEGATIVE Urine RBC (Auto) NEGATIVE NEGATIVE Urine RBC 0-2 /HPF Urine WBC 10-25 H /HPF Urine Squamous Epithelial Cells 0-2 /HPF Urine Crystals NONE /LPF Urine Bacteria MODERATE H /HPF Urine Casts NONE /LPF Urine Mucus NEGATIVE /LPF Urine Yeast MODERATE H /HPF Urine Culture Indicated YES My Orders Orders - FREEMAN PERRIN Ua Culture If Indicated (08/04/21 04:58) Straight Cath For Spec.-Adult (08/04/21 04:58) Urine Culture (08/04/21 05:11) Ceftriaxone (Rocephin) (08/04/21 05:45) Lidocaine 1% Inj 20 Ml (Xylocaine 1% Inj (08/04/21 05:45) Vital Signs/I&O 08/04/21 04:34 Temp 36.6 Pulse 88 Resp 20 B/P (MAP) 142/76 (98) Pulse Ox 96 O2 Delivery Room Air Capillary Refill : Less Than 3 Seconds Blood Pressure Mean: 98 Progress Note #1: Time: 05:01 Progress Note Patient is not well oriented to timing of her most recent medical issues. But she is able to answer questions appropriately. She is sleeping softly when this provider entered the room and easily roused. Plan to obtain a urine specimen v ia straight catheter. She has a septic vital signs. Progress Note #2: Time: 05:48 Progress Note Patient is resting comfortably, asleep when the provider enters the room. She was given some water which she drank and declined any further. Rocephin IM given x1 g and she can follow-up in the intermediate. Departure Impression Primary Impression: Urinary tract infection Qualified Codes: T83.511A - Infection and inflammatory reaction due to indwelling urethral catheter, initial encounter; N39.0 - Urinary tract infection, site not specified Disposition: 01 HOME, SELF-CARE Condition: Stable Departure-Patient Inst. Decision time for Depature: 05:49 Referrals: JODY MCFARLAND DO (PCP/Family) Primary Care Physician Patient Instructions: Urinary Tract Infection, Adult (DC) Add. Discharge Instructions: Drink lots of fluids. Rocephin 1 g IM daily with 2.1 mL of 1% lidocaine. 2 more doses. Return to the ER for high fevers, intractable vomiting or other worrisome symptoms. Follow-up with primary care as necessary. All discharge instructions reviewed with patient and/or family. Voiced understanding. FREEMAN PERRIN Aug 04, 2021 05:03
[2021-08-04 05:16] LABS: BILIRUBIN,URINE NEGATIVE (NEGATIVE); CLARITY,URINE CLEAR; COLOR,URINE YELLOW; GLUCOSE, URINE (UA) NEGATIVE (NEGATIVE); KETONES,URINE NEGATIVE (NEGATIVE); LEUKOCYTE ESTERASE ,URINE 2+ (NEGATIVE); NITRITE,URINE NEGATIVE (NEGATIVE); PROTEIN,URINE TRACE (NEGATIVE)
[2021-08-04 05:32] LABS: BACTERIA,URINE MODERATE /HPF; RBC,URINE 0-2 /HPF; SQUAMOUS EPITHELIAL CELL,UR 0-2 /HPF; YEAST,URINE MODERATE /HPF
[2021-08-04] MEDS ORDERED: cefTRIAXone 1,000 MG VIAL IM ONE (05:45)
[2021-08-04] MEDS ORDERED: LIDOCAINE 1% INJ 20 ML VIAL INJ ONE (05:45)
[2021-08-04 05:53] VITALS: BP 170/101
== END 2021-08-04 07:01 | disposition home or self-care (01) ==
LOC: EDUNIT# 04:22 → ER 04:24
DX: N39.0 Urinary tract infection, site not specified (principal); G47.30 Sleep apnea, unspecified; E66.01 Morbid (severe) obesity due to excess calories; E11.9 Type 2 diabetes mellitus without complications; Z68.44 Body mass index [BMI] 60.0-69.9, adult; Z99.89 Dependence on other enabling machines and devices; Z79.4 Long term (current) use of insulin
CPT/HCPCS: 51701; 81000; 87077; 87088

== ENCOUNTER 2021-09-04 08:09 | Emergency (ER) | payer MEDICARE, MEDICAID ==
[~2021-09-04] VITALS: Ht 165 cm; Wt 181.0 kg
[2021-09-04 08:37] LABS: BASOPHILS % (AUTO) 0 % (0-10); EOSINOPHILS # (AUTO) 0.1 10^3/uL (0.0-0.3); EOSINOPHILS % (AUTO) 3 % (0-10); HEMATOCRIT 49 % (35-52); HEMOGLOBIN 15.5 g/dL (11.5-16.0); LYMPHOCYTES # (AUTO) 1.2 10^3/uL (1.0-4.0); LYMPHOCYTES % (AUTO) 27 % (12-44); MEAN CORPUSCULAR HEMOGLOBIN 29 pg (25-34); MEAN CORPUSCULAR HGB CONC 32 g/dL (32-36); MEAN CORPUSCULAR VOLUME 89 fL (80-99); MEAN PLATELET VOLUME 8.8 fL (9.0-12.2); MONOCYTES # (AUTO) 0.4 10^3/uL (0.0-1.0); MONOCYTES % (AUTO) 9 % (0-12); NEUTROPHILS # (AUTO) 2.8 10^3/uL (1.8-7.8); NEUTROPHILS % (AUTO) 61 % (42-75); PLATELET COUNT 257 10^3/uL (130-400); WHITE BLOOD COUNT 4.5 10^3/uL (4.3-11.0)
[2021-09-04 08:39] LABS: POTASSIUM 3.4 MMOL/L (3.6-5.0)
[2021-09-04 08:40] LABS: CALCIUM 8.7 MG/DL (8.5-10.1)
[2021-09-04 08:45] LABS: CREATININE SERUM 0.99 MG/DL (0.60-1.30)
--- NOTE | 2021-09-04 08:46 | ED General ---
General Chief Complaint: Glucose Problems Stated Complaint: HYPOGLYCEMIA Nursing Triage Note: Patient arrives via EMS and is responsive to questions. This patient was unresponsive at the intermediate this morning with a blood sugar of 33 and spo2 of 63. EMS states that patient is diabetic and DNR. Source of Information: Patient, EMS, [facility] Records, RN/MD Exam Limitations: No Limitations History of Present Illness Date Seen by Provider: Sep 04, 2021 Time Seen by Provider: 08:16 Initial Comments 50-year-old female with past medical history of CVA with residual right-sided weakness, insulin-dependent diabetes, hypertension, hyperlipidemia, morbid obesity coming in via EMS from her intermediate due to low blood sugar. I personally contacted the intermediate nurse taking care of the patient. At 7:20 AM she went to the room to pass breakfast. The patient was unresponsive, blood sugar 33, blood pressure 128/72, heart rate 93, oxygen was 60% on room air. She was immediately placed on 3 and half liters of oxygen and given glucagon at 7:25 AM. 730 her blood sugar was 48 and she was more responsive, at that time they called EMS. The nurse states the patient essentially did not eat anything yesterday, and has had decreased p.o. for the past few days with "picky eating". The patient receives weekly Trulicity, metformin, and Levemir 33 units at night which she has received. The patient is denying any chest pain, shortness of breath, abdominal pain, nausea, vomiting, diarrhea, fever, chills, new weakness or numbness, or any other concerns. Allergies and Home Medications Allergies Coded Allergies: meperidine HCl (Verified Allergy, Severe, seizure, 02/14/16) fluticasone propionate (Verified Allergy, Intermediate, HIVES, 02/14/16) salmeterol xinafoate (Verified Allergy, Intermediate, HIVES, 02/14/16) ibuprofen (Unverified Allergy, Unknown, 02/14/16) levofloxacin (Verified Adverse Reaction, Unknown, 02/14/16) Patient Home Medication List Home Medication List Reviewed: Yes ALPRAZolam (Xanax Tablet) 0.25 Mg Tablet, 0.25 MG PO Q6H PRN for ANXIETY, (Reported) Entered as Reported by: MUNA ROBERTS on 04/09/16 0853 Acetaminophen (Arthritis Pain Reliever) 650 Mg Tablet.er, 650 MG PO Q4H PRN for PAIN-MILD, (Reported) Entered as Reported by: LIBORIO MARTINEZ on 10/18/18 1323 Acetaminophen (Acetaminophen 8 Hour) 650 Mg Tablet.er, 1,300 MG PO Q4H PRN for TEMPERATURE, (Reported) Entered as Reported by: LIBORIO MARTINEZ on 10/18/18 1323 Albuterol Sulfate (Albuterol Sulfate) 2.5 Mg/3 Ml Vial.neb, 2.5 MG NEB Q12H, (Reported) Entered as Reported by: MUNA ROBERTS on 04/09/16 0853 Amlodipine Besylate (Amlodipine Besylate) 5 Mg Tablet, 5 MG PO DAILY, (Reported) Entered as Reported by: MUNA ROBERTS on 04/09/16 0853 Ascorbic Acid (Ascorbic Acid) 500 Mg Tablet, 500 MG PO DAILY, (Reported) Entered as Reported by: SALONI SERNA on 01/12/17 140 Aspirin (Aspirin) 325 Mg Tablet, 325 MG PO DAILY, (Reported) Entered as Reported by: SALONI SERNA on 01/12/17 140 Atorvastatin Calcium (Atorvastatin Calcium) 40 Mg Tablet, 40 MG PO DAILY, (Reported) Entered as Reported by: SALONI SERNA on 01/12/17 140 Bisacodyl (Bisacodyl) 5 Mg Tablet.dr, 5 MG PO DAILY PRN for CONSTIPATION-4TH LINE, (Reported) Entered as Reported by: LIBORIO MARTINEZ on 10/18/18 1323 Bupropion HCl (Wellbutrin Sr) 150 Mg Tablet.er, 150 MG PO BID, (Reported) Entered as Reported by: LIBORIO MARTINEZ on 10/18/18 1313 Calcium Carbonate/Vitamin D3 (Calcium 600 + Vit D 400 Tablet) 1 Each Tablet, 1 TAB PO DAILY, (Reported) Entered as Reported by: MUNA ROBERTS on 04/09/16 0853 Ceftriaxone Na/Dextrose,Iso (Ceftriaxone 2 gm-D5w Bag) 2 Gm/50 Ml Piggyback, 2 GM IV DAILY Prescribed by: SWETA BRANDT on 10/18/18 1357 Clopidogrel Bisulfate (Plavix) 75 Mg Tablet, 75 MG PO DAILY, (Reported) Entered as Reported by: SALONI SERNA on 01/12/171408 Cranberry (Cranberry) 400 Mg Capsule, 400 MG PO TID, (Reported) Entered as Reported by: LIBORIO MARTINEZ on 10/18/18 131 Cyclobenzaprine HCl (Cyclobenzaprine HCl) 10 Mg Tablet, 10 MG PO BID, (Reported) Entered as Reported by: SALONI SERNA on 01/12/17 140 Dimethicone (Monistat Soothing Care) 42 Gm Gel..gram., 1 UNIT TP BID PRN for ITCHING, (Reported) Entered as Reported by: LIBORIO MARTINEZ on 10/18/18 132 Fentanyl (Fentanyl Patch 100 MCG) 1 Each Patch.td72, 100 MCG TD Q72H, (Reported) Entered as Reported by: SALONI SERNA on 01/12/171408 Fexofenadine HCl (Elsie Allergy) 180 Mg Tablet, 180 MG PO DAILY, (Reported) Entered as Reported by: SALONI SERNA on 01/12/171408 Fluconazole (Diflucan) 100 Mg Tablet, 100 MG PO DAILY, (Reported) Entered as Reported by: LIBORIO MARTINEZ on 10/18/18 132 Fluticasone Propionate (Fluticasone Propionate) 16 Gm [place].susp, 1 SPRAY NS DAILY, (Reported) Entered as Reported by: MUNA ROBERTS on 04/09/16 08 Furosemide (Furosemide) 80 Mg Tablet, 80 MG PO DAILY, (Reported) Entered as Reported by: MUNA ROBERTS on 04/09/16 08 Gabapentin (Gabapentin) 600 Mg Tablet, 600 MG PO TID, (Reported) Entered as Reported by: MUNA ROBERTS on 04/09/16 08 Glucagon,Human Recombinant (Glucagon Emergency Kit) 1 Mg/Kit Soln, 1 MG IJ PRN PRN for unresponsive hypoglycemic, (Reported) Entered as Reported by: SALONI SERNA on 01/12/17 140 Guaifenesin (Mucinex) 600 Mg Tab.er.12h, 600 MG PO BID, (Reported) Entered as Reported by: SALONI SERNA on 01/12/17 140 Hydroxyzine HCl (Hydroxyzine HCl) 25 Mg Tablet, 25 MG PO Q8H PRN for ITCHING, (Reported) Entered as Reported by: LIBORIO MARTINEZ on 10/18/18 132 Insulin Detemir (Levemir Flextouch) 100 Unit/1 Ml Insuln.pen, 20 UNITS SC HS, (Reported) Entered as Reported by: MUNA ROBERTS on 04/09/16 08 Levalbuterol Tartrate (Xopenex Hfa) 15 Gm Hfa.aer.ad, 2 PUFF IH BID, (Reported) Entered as Reported by: MUNA ROBERTS on 04/09/16 08 Levothyroxine Sodium (Levothyroxine Sodium) 175 Mcg Tablet, 275 MCG PO DAILY, (Reported) Entered as Reported by: LIBORIO MARTINEZ on 10/18/18 131 Loperamide HCl (Imodium A-D) 2 Mg Tablet, 4 MG PO DAILY PRN for LOOSE STOOLS, (Reported) Entered as Reported by: LIBORIO MARTINEZ on 10/18/18 132 Loperamide HCl (Imodium A-D) 2 Mg Tablet, 2 MG PO UD PRN for LOOSE STOOLS, (Reported) Entered as Reported by: LIBORIO MARTINEZ on 10/18/18 132 Metformin HCl (Metformin HCl) 1,000 Mg Tablet, 1,000 MG PO BID, (Reported) Entered as Reported by: MUNA ROBERTS on 04/09/16852 Mirabegron (Myrbetriq) 50 Mg Tab.er.24h, 50 MG PO DAILY, (Reported) Entered as Reported by: LIBORIO MARTINEZ on 10/18/18 132 Montelukast Sodium (Montelukast Sodium) 10 Mg Tablet, 10 MG PO HS, (Reported) Entered as Reported by: SALONI SERNA on 01/12/17 140 Multivitamin with Minerals (Multivitamins with Minerals) 1 Each Tablet, 1 TAB PO DAILY, (Reported) Entered as Reported by: MUNA ROBERTS on 04/09/16852 Smyer 3 Polyunsat Fatty Acids (Fish Oil 1,000 mg Capsule) 1,000 Mg Cap, 1,000 MG PO TID, (Reported) Entered as Reported by: SALONI SERNA on 01/12/17 1409 Ondansetron HCl (Zofran) 8 Mg Tablet, 8 MG PO Q8H PRN for NAUSEA/VOMITING-1ST LINE, (Reported) Entered as Reported by: LIBORIO MARTINEZ on 10/18/18 1325 Pantoprazole Sodium (Protonix) 40 Mg Tablet.dr, 40 MG PO DAILY Prescribed by: GLORY MARTINEZ on 01/19/17 1011 Sertraline HCl (Zoloft) 50 Mg Tablet, 75 MG PO DAILY, (Reported) Entered as Reported by: SALONI SERNA on 01/12/17 1410 Review of Systems Review of Systems Constitutional: No fever EENTM: No blurred vision Respiratory: No cough, No short of breath Cardiovascular: No chest pain Gastrointestinal: No abdominal pain Genitourinary: no symptoms reported Musculoskeletal: no symptoms reported Skin: no symptoms reported Psychiatric/Neurological: No Symptoms Reported Hematologic/Lymphatic: No Symptoms Reported Immunological/Allergic: no symptoms reported All Other Systems Reviewed Negative Unless Noted: Yes Past Tikmbuc-Nyxnzj-Oktrqi Hx Patient Social History Tobacco Use?: No Seasonal Allergies Seasonal Allergies: Yes Past Medical History Surgeries: Yes (fractured ankle 09/18/13; PORT RIGHT CHEST; EGD 2016) Orthopedic Respiratory: Yes Sleep Apnea, COPD Currently Using CPAP: No Currently Using BIPAP: Yes (BIPAP AT HS) Cardiac: Yes (CHF) Chronic Edema/Swelling, High Cholesterol, Hypertension Neurological: Yes (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 ) Diabetes, Insulin dep, Hypothyroidsim HEENT: Yes Dysphagia Cancer: No Psychosocial: Yes (OCD; MANIPULATIVE BEHAVIOR) Eating Disorder, Anxiety, Personality Disorder, Depression Integumentary: Yes (CHRONIC AREAS OF SKIN BREAKDOWN; LEG CELLULITIS ) Blood Disorders: No Family Medical History Patient reports no known family medical history. No Pertinent Family Hx Physical Exam Vital Signs Vital Signs - First Documented 09/04/21 08:20 Temp 36.0 Pulse 87 Resp 16 B/P (MAP) 149/95 (113) Pulse Ox 100 O2 Delivery Nasal Cannula Capillary Refill : Height, Weight, BMI Height: 5'7.00" Weight: 412lbs. 0oz. 186.001331ke; 66.00 BMI Method:Stated General Appearance: No Apparent Distress, WD/WN, Obese Eyes: Bilateral Eye Normal Inspection HEENT: PERRL/EOMI, Normal ENT Inspection, Pharynx Normal Neck: Full Range of Motion, Normal Inspection, Non Tender, Supple Respiratory: Chest Non Tender, Lungs Clear, Normal Breath Sounds, No Accessory Muscle Use, No Respiratory Distress Cardiovascular: Regular Rate, Rhythm, No Edema, Normal Peripheral Pulses Gastrointestinal: Normal Bowel Sounds, Non Tender, Soft; No Distended, No Guarding Back: Normal Inspection, No CVA Tenderness, No Vertebral Tenderness Extremity: Normal Capillary Refill, Normal Inspection, Normal Range of Motion, Non Tender, No Calf Tenderness, No Pedal Edema Neurologic/Psychiatric: Alert, Oriented x3, Normal Mood/Affect, Other (Residual right-sided weakness but no new deficits) Skin: Normal Color, Warm/Dry Lymphatic: No Adenopathy Progress/Results/Core Measures Suspected Sepsis SIRS Temperature: Pulse: 87 Respiratory Rate: 16 Laboratory Tests 09/04/21 08:20: White Blood Count 4.5 Blood Pressure 149 /95 Mean: 113 Laboratory Tests 09/04/21 08:20: Creatinine 0.99, Platelet Count 257 Results/Orders Lab Results Laboratory Tests Test 09/04/21 08:20 09/04/21 08:22 09/04/21 09:06 Range/Units White Blood Count 4.5 4.3-11.0 10^3/uL Red Blood Count 5.44 H 3.80-5.11 10^6/uL Hemoglobin 15.5 11.5-16.0 g/dL Hematocrit 49 35-52 % Mean Corpuscular Volume 89 80-99 fL Mean Corpuscular Hemoglobin 29 25-34 pg Mean Corpuscular Hemoglobin Concent 32 32-36 g/dL Red Cell Distribution Width 14.6 H 10.0-14.5 % Platelet Count 257 130-400 10^3/uL Mean Platelet Volume 8.8 L 9.0-12.2 fL Immature Granulocyte % (Auto) 0 % Neutrophils (%) (Auto) 61 42-75 % Lymphocytes (%) (Auto) 27 12-44 % Monocytes (%) (Auto) 9 0-12 % Eosinophils (%) (Auto) 3 0-10 % Basophils (%) (Auto) 0 0-10 % Neutrophils # (Auto) 2.8 1.8-7.8 10^3/uL Lymphocytes # (Auto) 1.2 1.0-4.0 10^3/uL Monocytes # (Auto) 0.4 0.0-1.0 10^3/uL Eosinophils # (Auto) 0.1 0.0-0.3 10^3/uL Basophils # (Auto) 0.0 0.0-0.1 10^3/uL Immature Granulocyte # (Auto) 0.0 0.0-0.1 10^3/uL Sodium Level 138 135-145 MMOL/L Potassium Level 3.4 L 3.6-5.0 MMOL/L Chloride Level 93 L 98-107 MMOL/L Carbon Dioxide Level 33 H 21-32 MMOL/L Anion Gap 12 5-14 MMOL/L Blood Urea Nitrogen 28 H 7-18 MG/DL Creatinine 0.99 0.60-1.30 MG/DL Estimat Glomerular Filtration Rate 70 BUN/Creatinine Ratio 28 Glucose Level 115 H 70-105 MG/DL Calcium Level 8.7 8.5-10.1 MG/DL Glucometer 125 H 124 H 70-110 MG/DL My Orders Orders - LAURA DUNHAM MD Accucheck Stat ONCE (09/04/21 08:18) General/Regular (09/04/21 Breakfast) Basic Metabolic Panel (09/04/21 08:26) Cbc With Automated Diff (09/04/21 08:26) Accucheck Stat ONCE (09/04/21 09:15) Vital Signs/I&O 09/04/21 08:20 Temp 36.0 Pulse 87 Resp 16 B/P (MAP) 149/95 (113) Pulse Ox 100 O2 Delivery Nasal Cannula Capillary Refill : Blood Pressure Mean: 113 Point of Care Testing Finger Stick Blood Glucose: 125 Blood Glucose Action Taken: RN and Physician notified Progress Note : Progress Note 50-year-old female with above history coming in due to decreased level of consciousness in the setting of being hypoglycemic from not eating yesterday. ABCs were intact and vitals were stable on presentation here. The patient was alert, talking to me, and able to corroborate the story. She did not eat hardly anything yesterday and that is likely the cause of her low blood sugar. We will get her kidney function here with labs to ensure that has not worsened and she is not getting rid of the insulin that she previously tolerated. Glucose here on arrival was 125. We will feed the patient and continue to reassess her and get repeat glucoses to ensure she has stabilized. She came off the oxygen immediately on arrival here and her saturation was around 99%. I suspect she was low earlier because of the low blood sugar and hypoventilation. Repeat blood sugar after the patient had eaten was 124. She continues to do well. Oxygen when she was laying flat to go down to around 89 or 90% and she was placed back on supplemental oxygen. She can have this in the intermediate if needed. I suspect this is related to her body weight distribution and obes ity hypoventilation. Lungs were otherwise clear and if she sits up and take some deep breaths her oxygen goes up. Departure Impression Primary Impression: Hypoglycemia Additional Impression: Diabetes mellitus Qualified Codes: E11.649 - Type 2 diabetes mellitus with hypoglycemia without coma; Z79.4 - [facility] (current) use of insulin Disposition: 01 HOME, SELF-CARE Condition: Improved Departure-Patient Inst. Decision time for Depature: 09:22 Referrals: GISELLE NASSAR MD (PCP/Family) Primary Care Physician Patient Instructions: Low Blood Sugar, Adult ED Add. Discharge Instructions: We suspect your blood sugar was low because of lack of eating the amount of calories that you need to sustain yourself yesterday. Try to eat a high-quality protein source at least with every meal. If you have persistent lows, they may need to lower your Levemir at nighttime. LAURA DUNHAM MD Sep 04, 2021 08:46
[2021-09-04 09:45] VITALS: BP 115/87
== END 2021-09-04 09:45 | disposition home or self-care (01) ==
LOC: EDUNIT# 08:09 → ER 08:13
DX: E11.649 Type 2 diabetes mellitus with hypoglycemia without coma (principal); E66.01 Morbid (severe) obesity due to excess calories; G47.30 Sleep apnea, unspecified; Z68.44 Body mass index [BMI] 60.0-69.9, adult; Z99.89 Dependence on other enabling machines and devices; Z79.4 Long term (current) use of insulin
CPT/HCPCS: 36415; 80048; 82947; 85025

== ENCOUNTER 2022-05-28 07:59 | Emergency (ER) | payer MEDICARE, MEDICAID ==
[~2022-05-28] VITALS: Ht 170 cm; Wt 158.0 kg
[~2022-05-28 07:59] MED LIST changes: +BISA5TAB20 PO; -BISA5TAB8 PO; +CLOP-31 PO; -CLOP75TA69 PO; -DOXY-311 PO; +DOXY-444 PO; -INSU100I29 SC; +INSU100I30 SC; -NYST15CR TP; +NYST15CR35 TP
--- NOTE | 2022-05-28 08:13 | ED Respiratory ---
General Chief Complaint: Respiratory Problems Stated Complaint: SOB Source: patient, EMS Exam Limitations: no limitations History of Present Illness Date Seen by Provider: May 28, 2022 Time Seen by Provider: 08:00 Initial Comments Patient is a 51-year-old female who presents to the emergency department from [facility] chief complaint Short of breath, cough, generalized malaise "feels sick". Patient states her symptoms started 2 days ago. She end orses runny nose, congestion. No burning with urination. She is in depends. She thinks she may have had diarrhea. No abdominal pain. She is chronically bed bound. Morbidly obese. Former smoker. Does have to use inhalers. Placed on supplemental oxygen by [facility] this morning. 93% on 3 L currently. No increased work of breathing or respiratory distress is noted. Sent for increasing oxygen requirement. Has a history of urinary tract infections in the past. Timing/Duration: other (2 days) Severity: moderate Prior Episodes/Possible Cause: occasional episodes Associated Symptoms: cough, nasal congestion, shortness of breath Allergies and Home Medications Allergies Coded Allergies: meperidine HCl (Verified Allergy, Severe, seizure, 02/14/16) fluticasone propionate (Verified Allergy, Intermediate, HIVES, 02/14/16) salmeterol xinafoate (Verified Allergy, Intermediate, HIVES, 02/14/16) ibuprofen (Unverified Allergy, Unknown, 02/14/16) levofloxacin (Verified Adverse Reaction, Unknown, 02/14/16) Patient Home Medication List Home Medication List Reviewed: Yes ALPRAZolam (Xanax Tablet) 0.25 Mg Tablet, 0.25 MG PO Q6H PRN for ANXIETY, (Reported) Entered as Reported by: MUNA ROBERTS on 04/09/16 0853 Acetaminophen (Arthritis Pain Reliever) 650 Mg Tablet.er, 650 MG PO Q4H PRN for PAIN-MILD, (Reported) Entered as Reported by: LIBORIO AMRTINEZ on 10/18/18 1323 Acetaminophen (Acetaminophen 8 Hour) 650 Mg Tablet.er, 1,300 MG PO Q4H PRN for TEMPERATURE, (Reported) Entered as Reported by: LIBORIO MARTINEZ on 10/18/18 1323 Albuterol Sulfate (Albuterol Sulfate) 2.5 Mg/3 Ml Vial.neb, 2.5 MG NEB Q12H, (Reported) Entered as Reported by: MUNA ROBERTS on 04/09/16 0853 Amlodipine Besylate (Amlodipine Besylate) 5 Mg Tablet, 5 MG PO DAILY, (Reported) Entered as Reported by: MUNA ROBERTS on 04/09/16 0853 Ascorbic Acid (Ascorbic Acid) 500 Mg Tablet, 500 MG PO DAILY, (Reported) Entered as Reported by: SALONI SERNA on 01/12/17 140 Aspirin (Aspirin) 325 Mg Tablet, 325 MG PO DAILY, (Reported) Entered as Reported by: SALONI SERNA on 01/12/17 140 Atorvastatin Calcium (Atorvastatin Calcium) 40 Mg Tablet, 40 MG PO DAILY, (Reported) Entered as Reported by: SALONI SERNA on 01/12/17 140 Bisacodyl (Bisacodyl) 5 Mg Tablet.dr, 5 MG PO DAILY PRN for CONSTIPATION-4TH LINE, (Reported) Entered as Reported by: LIBORIO MARTINEZ on 10/18/18 132 Bupropion HCl (Wellbutrin Sr) 150 Mg Tablet.er, 150 MG PO BID, (Reported) Entered as Reported by: LIBORIO MARTINEZ on 10/18/18 1313 Calcium Carbonate/Vitamin D3 (Calcium 600 + Vit D 400 Tablet) 1 Each Tablet, 1 TAB PO DAILY, (Reported) Entered as Reported by: MUNA ROBERTS on 04/09/16 0853 Ceftriaxone Na/Dextrose,Iso (Ceftriaxone 2 gm-D5w Bag) 2 Gm/50 Ml Piggyback, 2 GM IV DAILY Prescribed by: SWETA BRANDT on 10/18/18 1357 Clopidogrel Bisulfate (Plavix) 75 Mg Tablet, 75 MG PO DAILY, (Reported) Entered as Reported by: SALONI SERNA on 01/12/17 140 Cranberry (Cranberry) 400 Mg Capsule, 400 MG PO TID, (Reported) Entered as Reported by: LIBORIO MARTINEZ on 10/18/18 1313 Cyclobenzaprine HCl (Cyclobenzaprine HCl) 10 Mg Tablet, 10 MG PO BID, (Reported) Entered as Reported by: SALONI SERNA on 01/12/17 140 Dimethicone (Monistat Soothing Care) 42 Gm Gel..gram., 1 UNIT TP BID PRN for ITCHING, (Reported) Entered as Reported by: LIBORIO MARTINEZ on 10/18/18 132 Fentanyl (Fentanyl Patch 100 MCG) 1 Each Patch.td72, 100 MCG TD Q72H, (Reported) Entered as Reported by: SALONI SERNA on 01/12/17 140 Fexofenadine HCl (Elsie Allergy) 180 Mg Tablet, 180 MG PO DAILY, (Reported) Entered as Reported by: SALONI SERNA on 01/12/17 140 Fluconazole (Diflucan) 100 Mg Tablet, 100 MG PO DAILY, (Reported) Entered as Reported by: LIBORIO MARTINEZ on 10/18/18 132 Fluticasone Propionate (Fluticasone Propionate) 16 Gm [place].susp, 1 SPRAY NS DAILY, (Reported) Entered as Reported by: MUNA ROBERTS on 04/09/16 08 Furosemide (Furosemide) 80 Mg Tablet, 80 MG PO DAILY, (Reported) Entered as Reported by: MUNA ROBERTS on 04/09/16 08 Gabapentin (Gabapentin) 600 Mg Tablet, 600 MG PO TID, (Reported) Entered as Reported by: MUNA ROBERTS on 04/09/16852 Glucagon,Human Recombinant (Glucagon Emergency Kit) 1 Mg/Kit Soln, 1 MG IJ PRN PRN for unresponsive hypoglycemic, (Reported) Entered as Reported by: SALONI SERNA on 01/12/17 140 Guaifenesin (Mucinex) 600 Mg Tab.er.12h, 600 MG PO BID, (Reported) Entered as Reported by: SALONI SERNA on 01/12/17 140 Hydroxyzine HCl (Hydroxyzine HCl) 25 Mg Tablet, 25 MG PO Q8H PRN for ITCHING, (Reported) Entered as Reported by: LIBORIO MARTINEZ on 10/18/18 132 Insulin Detemir (Levemir Flextouch) 100 Unit/1 Ml Insuln.pen, 20 UNITS SC HS, (Reported) Entered as Reported by: MUNA ROBERTS on 04/09/16 08 Levalbuterol Tartrate (Xopenex Hfa) 15 Gm Hfa.aer.ad, 2 PUFF IH BID, (Reported) Entered as Reported by: MUNA ROBERTS on 04/09/16 0853 Levothyroxine Sodium (Levothyroxine Sodium) 175 Mcg Tablet, 275 MCG PO DAILY, (Reported) Entered as Reported by: LIBORIO MARTINEZ on 10/18/18 1313 Loperamide HCl (Imodium A-D) 2 Mg Tablet, 4 MG PO DAILY PRN for LOOSE STOOLS, (Reported) Entered as Reported by: LIBORIO MARTINEZ on 10/18/18 1323 Loperamide HCl (Imodium A-D) 2 Mg Tablet, 2 MG PO UD PRN for LOOSE STOOLS, (Reported) Entered as Reported by: LIBORIO MARTINEZ on 10/18/18 1323 Metformin HCl (Metformin HCl) 1,000 Mg Tablet, 1,000 MG PO BID, (Reported) Entered as Reported by: MUNA ROBERTS on 04/09/16 0853 Mirabegron (Myrbetriq) 50 Mg Tab.er.24h, 50 MG PO DAILY, (Reported) Entered as Reported by: LIBORIO MARTINEZ on 10/18/18 1323 Montelukast Sodium (Montelukast Sodium) 10 Mg Tablet, 10 MG PO HS, (Reported) Entered as Reported by: SALONI SERNA on 01/12/17 1409 Multivitamin with Minerals (Multivitamins with Minerals) 1 Each Tablet, 1 TAB PO DAILY, (Reported) Entered as Reported by: MUNA ROBERTS on 04/09/16 0853 [place] 3 Polyunsat Fatty Acids (Fish Oil 1,000 mg Capsule) 1,000 Mg Cap, 1,000 MG PO TID, (Reported) Entered as Reported by: SALONI SERNA on 01/12/17 1409 Ondansetron HCl (Zofran) 8 Mg Tablet, 8 MG PO Q8H PRN for NAUSEA/VOMITING-1ST LINE, (Reported) Entered as Reported by: LIBORIO MARTINEZ on 10/18/18 1325 Pantoprazole Sodium (Protonix) 40 Mg Tablet.dr, 40 MG PO DAILY Prescribed by: GLORY MARTINEZ on 01/19/17 1011 Sertraline HCl (Zoloft) 50 Mg Tablet, 75 MG PO DAILY, (Reported) Entered as Reported by: SALONI SERNA on 01/12/17 1410 Review of Systems Review of Systems Constitutional: see HPI, malaise, weakness EENTM: nose congestion Respiratory: cough, short of breath Cardiovascular: chest pain Gastrointestinal: no symptoms reported Genitourinary: no symptoms reported Musculoskeletal: no symptoms reported Skin: no symptoms reported All Other Systems Reviewed Negative Unless Noted: Yes Past Vyjdfrk-Snoxmp-Rhwnxh Hx Immunizations Up To Date First/Initial COVID19 Vaccinat: Unknown Seasonal Allergies Seasonal Allergies: Yes Past Medical History Surgery/Hospitalization HX: Patient states that she "does not know." Surgeries: Yes (fractured ankle 09/18/13; PORT RIGHT CHEST; EGD 2016) Orthopedic Respiratory: Yes Sleep Apnea, COPD Currently Using CPAP: No Currently Using BIPAP: Yes (BIPAP AT HS) Cardiac: Yes (CHF) Chronic Edema/Swelling, High Cholesterol, Hypertension Neurological: Yes (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 ) Diabetes, Insulin dep, Hypothyroidsim HEENT: Yes Dysphagia Cancer: No Psychosocial: Yes (OCD; MANIPULATIVE BEHAVIOR) Eating Disorder, Anxiety, Personality Disorder, Depression Integumentary: Yes (CHRONIC AREAS OF SKIN BREAKDOWN; LEG CELLULITIS ) Blood Disorders: No Family Medical History Patient reports no known family medical history. No Pertinent Family Hx Physical Exam Vital Signs - First Documented 05/28/22 08:00 Temp 36.5 Pulse 104 Resp 20 B/P (MAP) 134/107 (116) Pulse Ox 93 O2 Delivery Nasal Cannula O2 Flow Rate 5.00 Capillary Refill : Height: 5'7.00" Weight: 412lbs. 0oz. [phone]; 66.00 BMI Method:Stated General Appearance: WD/WN, obese Eyes: Right Eye Other (Greenish drainage right medial canthus); Bilateral Eye Normal Inspection, Bilateral Eye PERRL, Bilateral Eye EOMI HEENT: other (Dry mucous membranes) Neck: full range of motion Respiratory: no respiratory distress, no accessory muscle use, wheezing (Scant expiratory wheeze noted right upper lobe) Cardiovascular: regular rate, rhythm, tachycardia (93bpm), other (Brisk capillary refill) Gastrointestinal: normal bowel sounds, non tender, soft Extremities: normal range of motion, normal inspection Neurologic/Psychiatric: alert, normal mood/affect, oriented x 3 Skin: normal color, warm/dry Focused Exam Lactate Level 05/28/22 08:25: Lactic Acid Level 1.27 Lactic Acid Level Laboratory Tests Test 05/28/22 08:25 Lactic Acid Level 1.27 MMOL/L (0.50-2.00) Progress/Results/Core Measures Suspected Sepsis SIRS Temperature: Pulse: Respiratory Rate: Laboratory Tests 05/28/22 08:25: White Blood Count 5.3 Blood Pressure / Mean: 05/28/22 08:25: Lactic Acid Level 1.27 Laboratory Tests 05/28/22 08:25: Creatinine 1.06, INR Comment 0.9, Platelet Count 172, Total Bilirubin 0.3 Results/Orders Lab Results Laboratory Tests Test 05/28/22 08:25 05/28/22 10:26 Range/Units White Blood Count 5.3 4.3-11.0 10^3/uL Red Blood Count 5.51 H 3.80-5.11 10^6/uL Hemoglobin 16.2 H 11.5-16.0 g/dL Hematocrit 49 35-52 % Mean Corpuscular Volume 89 80-99 fL Mean Corpuscular Hemoglobin 29 25-34 pg Mean Corpuscular Hemoglobin Concent 33 32-36 g/dL Red Cell Distribution Width 13.0 10.0-14.5 % Platelet Count 172 130-400 10^3/uL Mean Platelet Volume 8.9 L 9.0-12.2 fL Immature Granulocyte % (Auto) 0 % Neutrophils (%) (Auto) 66 42-75 % Lymphocytes (%) (Auto) 22 12-44 % Monocytes (%) (Auto) 11 0-12 % Eosinophils (%) (Auto) 0 0-10 % Basophils (%) (Auto) 1 0-10 % Neutrophils # (Auto) 3.5 1.8-7.8 10^3/uL Lymphocytes # (Auto) 1.2 1.0-4.0 10^3/uL Monocytes # (Auto) 0.6 0.0-1.0 10^3/uL Eosinophils # (Auto) 0.0 0.0-0.3 10^3/uL Basophils # (Auto) 0.0 0.0-0.1 10^3/uL Immature Granulocyte # (Auto) 0.0 0.0-0.1 10^3/uL Prothrombin Time 12.5 12.2-14.7 SEC INR Comment 0.9 0.8-1.4 Activated Partial Thromboplast Time 27 24-35 SEC Sodium Level 136 135-145 MMOL/L Potassium Level 4.4 3.6-5.0 MMOL/L Chloride Level 93 L 98-107 MMOL/L Carbon Dioxide Level 30 21-32 MMOL/L Anion Gap 13 5-14 MMOL/L Blood Urea Nitrogen 39 H 7-18 MG/DL Creatinine 1.06 0.60-1.30 MG/DL Estimat Glomerular Filtration Rate 64 BUN/Creatinine Ratio 37 Glucose Level 404 *H 70-105 MG/DL Lactic Acid Level 1.27 0.50-2.00 MMOL/L Calcium Level 8.5 8.5-10.1 MG/DL Corrected Calcium 8.8 8.5-10.1 MG/DL Total Bilirubin 0.3 0.1-1.0 MG/DL Aspartate Amino Transf (AST/SGOT) 21 5-34 U/L Alanine Aminotransferase (ALT/SGPT) 30 0-55 U/L Alkaline Phosphatase 86 40-136 U/L Total Protein 6.4 6.4-8.2 GM/DL Albumin 3.6 3.2-4.5 GM/DL Urine Color YELLOW Urine Clarity SL CLOUDY Urine pH 6.5 5-9 Urine Specific [place] 1.010 L 1.016-1.022 Urine Protein NEGATIVE NEGATIVE Urine Glucose (UA) NEGATIVE NEGATIVE Urine Ketones NEGATIVE NEGATIVE Urine Nitrite NEGATIVE NEGATIVE Urine Bilirubin NEGATIVE NEGATIVE Urine Urobilinogen 0.2 < = 1.0 MG/DL Urine Leukocyte Esterase TRACE H NEGATIVE Urine RBC (Auto) NEGATIVE NEGATIVE Urine RBC NONE /HPF Urine WBC 0-2 /HPF Urine Squamous Epithelial Cells 0-2 /HPF Urine Crystals NONE /LPF Urine Bacteria LARGE H /HPF Urine Casts NONE /LPF Urine Mucus NEGATIVE /LPF Urine Culture Indicated YES My Orders Orders - ANNETTE TESFAYE MD Cbc With Automated Diff (05/28/22 08:08) Comprehensive Metabolic Panel (05/28/22 08:08) Blood Culture (05/28/22 08:08) Sputum Culture (05/28/22 08:08) Urinalysis (05/28/22 08:08) Urine Culture (05/28/22 08:08) Protime With Inr (05/28/22 08:08) Partial Thromboplastin Time (05/28/22 08:08) Chest 1 View, Ap/Pa Only (05/28/22 08:08) Ed Iv/Invasive Line Start (05/28/22 08:08) Ed Iv/Invasive Line Start (05/28/22 08:08) Vital Signs Adult Sepsis Patie Q15M (05/28/22 08:08) O2 (05/28/22 08:08) Remove Rings In Anticipation O (05/28/22 08:08) Lactic Acid Analyzer (05/28/22 08:08) Ceftriaxone Iv/Im (Rocephin Iv/Im) (05/28/22 11:00) Medications Given in ED Vital Signs/I&O 05/28/22 05/28/22 05/28/22 08:00 08:00 12:46 Temp 36.5 36.5 Pulse 104 82 Resp 20 20 B/P (MAP) 134/107 (116) 137/96 Pulse Ox 93 93 94 O2 Delivery Nasal Cannula Nasal Cannula Nasal Cannula O2 Flow Rate 5.00 4.00 Capillary Refill : Progress Note : Time: 10:55 Progress Note Patient seen and evaluated by me. Evaluation today includes physical exam, "sepsis protocol" to include CBC, Chem-12, urinalysis, lactic acid, coags, chest x-ray. Pertinent physical exam findings morbidly obese female in no acute distress. Alert, oriented. Lungs are actually clear, no respiratory distress, no wheezes no rhonchi. She does have occasional wet sounding cough. Sats are 94% on 3 L. Heart is regular, abdomen is soft. No focal neurologic deficits. Differential diagnosis based on history and physical exam, urinary tract infection, pneumonia, sepsis. Labs reviewed by me, CBC is completely normal. Chem-12 shows a BUN of 39, creatinine of 1.06. Serum glucose 404. Lactic acid is 1.27. Coags are normal. In-N-Out cath urine shows trace leukocyte esterase with large bacteria. Patient is treated with 1 L of normal saline as well as 1 g of Rocephin. I reviewed prior records from previous urinalysis and cultures. She has had E. coli UTIs many times in the past all of which are sensitive to Rocephin. We will go ahead and treat her UA today with 1 g of Rocephin. Anticipate that she will need subsequent doses. We will write an order for the correction to give her 2 more doses and have them touch base with her primary care physician. Cl inically she is not septic at this time. She is afebrile, not tachycardic. Chest x-ray is reviewed by me and shows no evidence of new infiltrate or effusion. We will try and get her blood sugar down below 350. Patient does not meet inpatient criteria at this time. Will be discharged home to the correction. Diagnostic Imaging Diagonstic Imaging: Xray Plain Films/CT/US/NM/MRI: chest Comments Single view chest xray - reviewed and interpreted by me - aristeo RLL - chronic; infusaport right Upper chest. Departure Impression Primary Impression: Shortness of breath Additional Impressions: UTI (urinary tract infection) Qualified Codes: N39.0 - Urinary tract infection, site not specified Hyperglycemia due to diabetes mellitus Disposition: HOME, SELF-CARE Condition: Stable Departure-Patient Inst. Decision time for Depature: 11:23 Referrals: GISELLE NASSAR MD (PCP/Family) Primary Care Physician Patient Instructions: Urinary Tract Infection, Adult ED Add. Discharge Instructions: You have been treated for urinary tract infection here in the emergency department. You will need 2 more days of antibiotics. Your sugar is also elevated today at 404. This has been treated with IV fluids. There is no evidence of pneumonia on your chest x-ray at this time. Please return to the emergency department for any new, concerning or emergent complaints. Copy Copies To 1: GISELLE NASSAR MD, KATHRYN M MD May 28, 2022 08:13
--- NOTE | 2022-05-28 08:36 | Diagnostic Imaging Report ---
CLINICAL INDICATION: Patient with shortness of breath and cough. EXAM: Portable chest x-ray, upright view. COMPARISON: Chest x-ray dated 10/16/2018. FINDINGS: There is stable blunting of the right costophrenic angle and thickening of the pleura along the periphery of the right lower lung field and lateral right lung base region, likely related to scarring. There is a stable increased airspace opacity in the right lung base, likely related to atelectasis and/or scarring. There is mild left basilar atelectasis. There is no interval lung infiltrate. There is stable cardiomegaly with no significant pulmonary vascular congestion. There are degenerative spurs involving the spine. There is a stable detached electrode wire overlying the right chest and mediastinal region. IMPRESSION: 1: Stable chest x-ray exam with no interval radiographic evidence of an acute cardiopulmonary process. 2: Stable chronic changes and scarring in the right lung base. Dictated by: Dictated on workstation # [id number]
[2022-05-28 08:37] LABS: BASOPHILS % (AUTO) 1 % (0-10); EOSINOPHILS % (AUTO) 0 % (0-10); HEMATOCRIT 49 % (35-52); HEMOGLOBIN 16.2 g/dL (11.5-16.0); LYMPHOCYTES # (AUTO) 1.2 10^3/uL (1.0-4.0); LYMPHOCYTES % (AUTO) 22 % (12-44); MEAN CORPUSCULAR HEMOGLOBIN 29 pg (25-34); MEAN CORPUSCULAR HGB CONC 33 g/dL (32-36); MEAN CORPUSCULAR VOLUME 89 fL (80-99); MEAN PLATELET VOLUME 8.9 fL (9.0-12.2); MONOCYTES # (AUTO) 0.6 10^3/uL (0.0-1.0); MONOCYTES % (AUTO) 11 % (0-12); NEUTROPHILS # (AUTO) 3.5 10^3/uL (1.8-7.8); NEUTROPHILS % (AUTO) 66 % (42-75); PLATELET COUNT 172 10^3/uL (130-400); WHITE BLOOD COUNT 5.3 10^3/uL (4.3-11.0)
[2022-05-28 08:53] LABS: ALBUMIN 3.6 GM/DL (3.2-4.5); POTASSIUM 4.4 MMOL/L (3.6-5.0)
[2022-05-28 08:54] LABS: CALCIUM 8.5 MG/DL (8.5-10.1)
[2022-05-28 08:55] LABS: TOTAL PROTEIN 6.4 GM/DL (6.4-8.2)
[2022-05-28 08:57] LABS: BILIRUBIN,TOTAL 0.3 MG/DL (0.1-1.0)
[2022-05-28 08:59] LABS: CREATININE SERUM 1.06 MG/DL (0.60-1.30)
[2022-05-28 09:08] LABS: INR 0.9 (0.8-1.4); PROTHROMBIN TIME PATIENT 12.5 SEC (12.2-14.7)
[2022-05-28 10:34] LABS: BILIRUBIN,URINE NEGATIVE (NEGATIVE); CLARITY,URINE SL CLOUDY; COLOR,URINE YELLOW; GLUCOSE, URINE (UA) NEGATIVE (NEGATIVE); KETONES,URINE NEGATIVE (NEGATIVE); LEUKOCYTE ESTERASE ,URINE TRACE (NEGATIVE); NITRITE,URINE NEGATIVE (NEGATIVE); PH,URINE 6.5 (5-9); PROTEIN,URINE NEGATIVE (NEGATIVE)
[2022-05-28 10:42] LABS: BACTERIA,URINE LARGE /HPF; SQUAMOUS EPITHELIAL CELL,UR 0-2 /HPF; WBC,URINE 0-2 /HPF
[2022-05-28] MEDS ORDERED: cefTRIAXone IV/IM 1,000 MG in NS (IVPB) 50 ML IV ONE (11:00)
[2022-05-28 12:46] VITALS: BP 137/96
== END 2022-05-28 12:46 | disposition home or self-care (01) ==
LOC: EDUNIT# 07:59 → ER 08:00
DX: R06.02 Shortness of breath (principal); N39.0 Urinary tract infection, site not specified; E11.65 Type 2 diabetes mellitus with hyperglycemia; E66.01 Morbid (severe) obesity due to excess calories; G47.30 Sleep apnea, unspecified; J44.9 Chronic obstructive pulmonary disease, unspecified; Z99.81 Dependence on supplemental oxygen; Z99.89 Dependence on other enabling machines and devices; Z87.891 Personal history of nicotine dependence; Z68.36 Body mass index [BMI] 36.0-36.9, adult; Z79.51 Long term (current) use of inhaled steroids
CPT/HCPCS: 36415; 71045; 80053; 81000; 83605; 85025; 85610; 85730; 87040; 87077; 87088; 87186